=== PATIENT | male | born 1960 | race Caucasian/White ===

== ENCOUNTER 2018-03-14 13:29 | Emergency (ER) | payer BC ==
[~2018-03-14] VITALS: Ht 165.1 cm; Wt 67.0 kg
[~2018-03-14 13:29] MED LIST: AMLO5TAB4 PO; ASPI81TA52 PO; ATOR40TA71 PO; CLON0.2T PO; FERR325T39 PO; FISH12002 PO; FURO40TA4 PO; GLIP5TAB13 PO; LEVO100T PO; LISI-600 PO; MAGN296S50 PO; OMEP40CA PO; [UNRECOGNIZED DRUG - CODE] PO
[2018-03-14 14:30] VITALS: BP 147/78
[2018-03-14 14:53] LABS: BASOPHILS % (AUTO) 0.6 % (0-1); EOSINOPHILS # (AUTO) 0.2 X10'3 (0-0.9); EOSINOPHILS % (AUTO) 2.5 % (0-6); HEMATOCRIT 26.5 % (42.0-52.0); HEMOGLOBIN 8.7 g/dl (14.0-17.9); LYMPHOCYTES # (AUTO) 1.2 X10'3 (1.1-4.8); LYMPHOCYTES % (AUTO) 19.2 % (21-51); MEAN CORPUSCULAR HEMOGLOBIN 30.5 PG (27.0-31.0); MEAN CORPUSCULAR HGB CONC 32.8 % (33.0-36.5); MEAN CORPUSCULAR VOLUME 92.9 FL (78-98); MEAN PLATELET VOLUME 7.1 FL (7.4-10.4); MONOCYTES # (AUTO) 0.5 X10'3 (0-0.9); MONOCYTES % (AUTO) 8.2 % (2-12); NEUTROPHILS # (AUTO) 4.2 X10'3 (1.8-7.7); NEUTROPHILS % (AUTO) 69.5 % (42-75); PLATELET COUNT 241 X10'3 (140-440); RED BLOOD COUNT 2.86 X10'6 (4.70-6.10); RED CELL DISTRIBUTION WIDTH 14.4 % (11.5-14.5); WHITE BLOOD COUNT 6.1 X10'3 (4.5-11.0)
[2018-03-14 15:15] LABS: ALANINE AMINOTRANSFERASE 38 U/L (12-78); ALBUMIN 2.5 G/DL (3.4-5.0); ALBUMIN/GLOBULIN RATIO 0.7 (1.1-1.5); ALKALINE PHOSPHATASE 115 IU/L (46-116); ANION GAP 8 (8-16); ASPARTATE AMINO TRANSFERASE 27 U/L (10-37); BILIRUBIN,TOTAL 0.1 MG/DL (0.1-1.0); BLOOD UREA NITROGEN 89 MG/DL (7-18); BUN/CREATININE RATIO 30.8 (5.4-32.0); CHLORIDE 108 MMOL/L (99-107); CREATININE 2.89 MG/DL (0.60-1.10); GLUCOSE 132 MG/DL (70-104); POTASSIUM 5.7 MMOL/L (3.5-5.1); SODIUM 138 MMOL/L (135-145); TOTAL CARBON DIOXIDE 21.9 MMOL/L (24-32); TOTAL PROTEIN 6.1 G/DL (6.4-8.2); eGFR 23 ML/MIN
[2018-03-14] MEDS ORDERED: sodium polystyrene sulfonate 15gm/60ml oral suspension PO ONE (15:30)
== END 2018-03-14 15:47 | disposition home or self-care (01) ==
LOC: ER 13:29
DX: I13.0 Hypertensive heart and chronic kidney disease with heart failure and stage 1 through stage 4 chronic kidney disease, or unspecified chronic kidney disease (principal); E11.22 Type 2 diabetes mellitus with diabetic chronic kidney disease; N18.9 Chronic kidney disease, unspecified; I50.9 Heart failure, unspecified; E87.5 Hyperkalemia; E78.00 Pure hypercholesterolemia, unspecified; K21.9 Gastro-esophageal reflux disease without esophagitis; E03.9 Hypothyroidism, unspecified; G89.29 Other chronic pain; F12.10 Cannabis abuse, uncomplicated; F15.10 Other stimulant abuse, uncomplicated; Z90.49 Acquired absence of other specified parts of digestive tract; Z87.891 Personal history of nicotine dependence; Z79.82 Long term (current) use of aspirin; Z79.899 Other long term (current) drug therapy
CPT/HCPCS: 36415; 80053; 85025; 93005; 99285

== ENCOUNTER 2018-05-12 23:35 | Emergency (ER) | payer BC ==
[~2018-05-12] VITALS: Ht 167.6 cm; Wt 66.0 kg
[2018-05-13 02:31] LABS: INR 0.9 INR; PARTIAL THROMBOPLASTIN TIME 23 SECONDS (22-32); PROTHROMBIN TIME 9.3 SECONDS (9.0-12.0)
[2018-05-13 02:33] LABS: ALANINE AMINOTRANSFERASE 57 U/L (12-78); ALBUMIN 3.2 G/DL (3.4-5.0); ALBUMIN/GLOBULIN RATIO 0.8 (1.1-1.5); ALKALINE PHOSPHATASE 138 IU/L (46-116); ANION GAP 11 (8-16); ASPARTATE AMINO TRANSFERASE 30 U/L (10-37); BILIRUBIN,TOTAL 0.1 MG/DL (0.1-1.0); BLOOD UREA NITROGEN 96 MG/DL (7-18); BUN/CREATININE RATIO 28.2 (5.4-32.0); CALCIUM 8.4 MG/DL (8.5-10.1); CHLORIDE 106 MMOL/L (99-107); GLUCOSE 138 MG/DL (70-104); MAGNESIUM 2.9 MG/DL (1.5-2.4); POTASSIUM 5.6 MMOL/L (3.5-5.1); SODIUM 137 MMOL/L (135-145); eGFR 19 ML/MIN
[2018-05-13 02:35] LABS: BASOPHILS % (AUTO) 0.5 % (0-1); EOSINOPHILS # (AUTO) 0.2 X10'3 (0-0.9); EOSINOPHILS % (AUTO) 2.7 % (0-6); HEMATOCRIT 25.9 % (42.0-52.0); HEMOGLOBIN 8.7 g/dl (14.0-17.9); LYMPHOCYTES # (AUTO) 1.3 X10'3 (1.1-4.8); MEAN CORPUSCULAR HEMOGLOBIN 30.9 PG (27.0-31.0); MEAN CORPUSCULAR HGB CONC 33.7 % (33.0-36.5); MEAN CORPUSCULAR VOLUME 91.7 FL (78-98); MEAN PLATELET VOLUME 7.2 FL (7.4-10.4); MONOCYTES # (AUTO) 0.7 X10'3 (0-0.9); MONOCYTES % (AUTO) 8.9 % (2-12); NEUTROPHILS # (AUTO) 5.6 X10'3 (1.8-7.7); NEUTROPHILS % (AUTO) 71.9 % (42-75); PLATELET COUNT 228 X10'3 (140-440); RED BLOOD COUNT 2.83 X10'6 (4.70-6.10); RED CELL DISTRIBUTION WIDTH 13.3 % (11.5-14.5); WHITE BLOOD COUNT 7.8 X10'3 (4.5-11.0)
[2018-05-13] MEDS ORDERED: sodium polystyrene sulfonate 15gm/60ml oral suspension PO ONE (04:05)
[2018-05-13 05:51] VITALS: BP 188/90
[2018-05-13 06:03] LABS: ALBUMIN 3.2 G/DL (3.4-5.0); ANION GAP 14 (8-16); BLOOD UREA NITROGEN 92 MG/DL (7-18); BUN/CREATININE RATIO 29.4 (5.4-32.0); CALCIUM 8.4 MG/DL (8.5-10.1); CHLORIDE 106 MMOL/L (99-107); CREATININE 3.13 MG/DL (0.60-1.10); GLUCOSE 119 MG/DL (70-104); POTASSIUM 5.3 MMOL/L (3.5-5.1); SODIUM 138 MMOL/L (135-145); TOTAL CARBON DIOXIDE 18.5 MMOL/L (24-32); eGFR 21 ML/MIN
== END 2018-05-13 06:44 | disposition home or self-care (01) ==
LOC: ER 23:36
DX: E87.5 Hyperkalemia (principal); E11.42 Type 2 diabetes mellitus with diabetic polyneuropathy; I50.9 Heart failure, unspecified; E78.00 Pure hypercholesterolemia, unspecified; K21.9 Gastro-esophageal reflux disease without esophagitis; I13.0 Hypertensive heart and chronic kidney disease with heart failure and stage 1 through stage 4 chronic kidney disease, or unspecified chronic kidney disease; F12.90 Cannabis use, unspecified, uncomplicated; F15.90 Other stimulant use, unspecified, uncomplicated; E11.22 Type 2 diabetes mellitus with diabetic chronic kidney disease; N18.9 Chronic kidney disease, unspecified; E03.9 Hypothyroidism, unspecified; Z90.49 Acquired absence of other specified parts of digestive tract; Z79.82 Long term (current) use of aspirin; Z79.899 Other long term (current) drug therapy
CPT/HCPCS: 36415; 80048; 80053; 83735; 84100; 85025; 85610; 85730; 99284

== ENCOUNTER 2018-08-13 08:57 | Inpatient (IN) | payer BC ==
[~2018-08-13] VITALS: Ht 167.6 cm; Wt 69.9 kg
[2018-08-13] MEDS ORDERED: ondansetron/PF 4mg/2ml inj IV ONE ×2 (09:30→10:30)
[2018-08-13] MEDS ORDERED: normal saline 1000ML IV soln IVB ONE (09:30)
[2018-08-13 09:57] LABS: BASOPHILS % (AUTO) 0.2 % (0-1); EOSINOPHILS # (AUTO) 0.1 X10'3 (0-0.9); EOSINOPHILS % (AUTO) 0.5 % (0-6); HEMATOCRIT 26.8 % (42.0-52.0); HEMOGLOBIN 9.1 g/dl (14.0-17.9); LYMPHOCYTES # (AUTO) 1.5 X10'3 (1.1-4.8); MEAN CORPUSCULAR HEMOGLOBIN 30.7 PG (27.0-31.0); MEAN CORPUSCULAR HGB CONC 33.7 % (33.0-36.5); MEAN CORPUSCULAR VOLUME 91.1 FL (78-98); MEAN PLATELET VOLUME 7.3 FL (7.4-10.4); MONOCYTES # (AUTO) 0.5 X10'3 (0-0.9); MONOCYTES % (AUTO) 3.1 % (2-12); NEUTROPHILS # (AUTO) 14.2 X10'3 (1.8-7.7); NEUTROPHILS % (AUTO) 87.2 % (42-75); PLATELET COUNT 277 X10'3 (140-440); RED BLOOD COUNT 2.95 X10'6 (4.70-6.10); RED CELL DISTRIBUTION WIDTH 13.2 % (11.5-14.5); WHITE BLOOD COUNT 16.3 X10'3 (4.5-11.0)
[2018-08-13 10:13] LABS: ALANINE AMINOTRANSFERASE 36 U/L (12-78); ALBUMIN 3.7 G/DL (3.4-5.0); ALBUMIN/GLOBULIN RATIO 0.9 (1.1-1.5); ALKALINE PHOSPHATASE 83 IU/L (46-116); ANION GAP 22 (8-16); ASPARTATE AMINO TRANSFERASE 25 U/L (10-37); BILIRUBIN,TOTAL 0.3 MG/DL (0.1-1.0); BLOOD UREA NITROGEN 110 MG/DL (7-18); CHLORIDE 107 MMOL/L (99-107); CREATININE 4.78 MG/DL (0.60-1.10); GLUCOSE 266 MG/DL (70-104); LIPASE 404 U/L (73-393); POTASSIUM 4.9 MMOL/L (3.5-5.1); SODIUM 142 MMOL/L (135-145); TOTAL PROTEIN 7.7 G/DL (6.4-8.2); eGFR 13 ML/MIN
[2018-08-13 10:16] LABS: PROTHROMBIN TIME 9.9 SECONDS (9.0-12.0)
[2018-08-13 10:17] LABS: TOTAL CARBON DIOXIDE 13.4 MMOL/L (24-32)
[2018-08-13 11:24] LABS: CLARITY,URINE SLIGHTLY CLOUDY (Clear); COLOR,URINE YELLOW (Yellow); GLUCOSE, URINE 250 mg/dl (Neg); KETONES,URINE NEGATIVE (Neg); LEUKOCYTE ESTERASE ,URINE NEGATIVE (Neg); NITRITES, URINE NEGATIVE (Neg); OCCULT BLOOD,URINE MODERATE (Neg); PH,URINE 5.5 (4.8-8.0); PROTEIN,URINE 100 mg/dl (Neg); UROBILINOGEN,URINE 0.2 E.U/dL (0.2-1.0)
[2018-08-13 11:26] LABS: UA COLLECTION TYPE STRAIGHT CATH
[2018-08-13 11:53] LABS: RBC,URINE NONE SEEN /HPF (0-2); WBC,URINE 0-4 /HPF (0-4)
[2018-08-13 11:54] LABS: BACTERIA,URINE FEW /HPF (Neg); SQUAMOUS EPITHELIAL CELL,UR FEW /LPF (FEW)
[2018-08-13 11:55] LABS: AMORPHOUS URATES 2+
[2018-08-13] MEDS ORDERED: proCHLORperazine 10 MG/2 ml inj IV ONE (12:10)
[2018-08-13] MEDS ORDERED: potassium CL 20mEq in D5-1/2NS 1,000 ML IV PRN (14:17)
[2018-08-13] MEDS ORDERED: insulin regular, DKA only 100 UNIT in normal saline 100ml IV soln 99 ML IV SCH ×2 (14:17)
[2018-08-13] MEDS ORDERED: sodium bicarbonate (8.4%) inj. 50 MEQ in dextrose 5% water 500ml 250 ML IV PRN (14:17)
[2018-08-13] MEDS ORDERED: sodium bicarbonate (8.4%) inj. 100 MEQ in dextrose 5% water 500ml 500 ML IV PRN (14:17)
[2018-08-13] MEDS ORDERED: sodium phosphate inj. 30 MMOL in dextrose 5%-water 250 ML IV PRN (14:20)
[2018-08-13] MEDS: K and/or MAG REPLACEMENT MC SCH (14:20)
[2018-08-13] MEDS ORDERED: potassium Cl 20 mEq SR tablet PO PRN ×2 (14:20)
[2018-08-13] MEDS ORDERED: potassium Cl 40MEQ/NS 500ml 500 ML IV PRN (14:20)
[2018-08-13] MEDS ORDERED: mag hydrox/Alum hydrox/simeth 30ml oral suspension PO PRN (14:20)
[2018-08-13] MEDS ORDERED: magnesium hydroxide 30ml (MOM) UD suspension PO PRN (14:20)
[2018-08-13] MEDS ORDERED: Neutra Phos packet PO PRN (14:20)
[2018-08-13] MEDS ORDERED: insulin regular, human vial - multi-dose IV PRN (14:20)
[2018-08-13] MEDS ORDERED: sodium phosphate inj. 15 MMOL in dextrose 5%-water 150 ML IV PRN (14:20)
[2018-08-13] MEDS ORDERED: acetaminophen 325mg tablet PO PRN (14:20)
[2018-08-13] MEDS ORDERED: insulin regular, human 10 units/0.1 ml syringe IV PRN (15:04)
[2018-08-13 15:20] LABS: ALBUMIN 3.5 G/DL (3.4-5.0); ANION GAP 24 (8-16); BLOOD UREA NITROGEN 104 MG/DL (7-18); BUN/CREATININE RATIO 23.4 (5.4-32.0); CALCIUM 8.8 MG/DL (8.5-10.1); CHLORIDE 110 MMOL/L (99-107); CREATININE 4.44 MG/DL (0.60-1.10); GLUCOSE 299 MG/DL (70-104); PHOSPHORUS 7.3 MG/DL (2.3-4.5); POTASSIUM 4.7 MMOL/L (3.5-5.1); SODIUM 144 MMOL/L (135-145); eGFR 14 ML/MIN
[2018-08-13 15:30] LABS: TOTAL CARBON DIOXIDE 10.1 MMOL/L (24-32)
[2018-08-13] MEDS: pantoprazole 40 MG vial IV SCH (15:40)
[2018-08-13] MEDS: normal saline 1000ml 1,000 ML IV SCH ×3 (15:42→22:40)
[2018-08-13 16:00] VITALS: BP 149/48
[2018-08-13] MEDS: ondansetron/PF 4mg/2ml inj IV PRN (18:45)
[2018-08-13 19:00] VITALS: BP 161/67
[2018-08-13] MEDS: metoclopramide 5 mg/ml inj IV PRN (19:25)
[2018-08-13] MEDS ORDERED: temazepam 15mg capsule PO PRN (21:00)
[2018-08-13 22:27] LABS: ALBUMIN 3.4 G/DL (3.4-5.0); ANION GAP 24 (8-16); BLOOD UREA NITROGEN 99 MG/DL (7-18); BUN/CREATININE RATIO 22.3 (5.4-32.0); CALCIUM 8.6 MG/DL (8.5-10.1); CHLORIDE 112 MMOL/L (99-107); CREATININE 4.43 MG/DL (0.60-1.10); GLUCOSE 252 MG/DL (70-104); POTASSIUM 4.4 MMOL/L (3.5-5.1); SODIUM 147 MMOL/L (135-145); eGFR 14 ML/MIN
[2018-08-13 22:33] LABS: TOTAL CARBON DIOXIDE 11.1 MMOL/L (24-32)
[2018-08-13 23:00] VITALS: BP 158/67
[2018-08-14] MEDS ORDERED: proCHLORperazine 10 MG/2 ml inj IV PRN (00:15)
[2018-08-14] MEDS: ondansetron/PF 4mg/2ml inj IV PRN (02:05)
[2018-08-14 02:43] LABS: ALBUMIN 2.4 G/DL (3.4-5.0); ANION GAP 22 (8-16); BLOOD UREA NITROGEN 74 MG/DL (7-18); BUN/CREATININE RATIO 23.7 (5.4-32.0); CALCIUM 6.2 MG/DL (8.5-10.1); CHLORIDE 121 MMOL/L (99-107); CREATININE 3.12 MG/DL (0.60-1.10); GLUCOSE 121 MG/DL (70-104); SODIUM 153 MMOL/L (135-145); eGFR 21 ML/MIN
[2018-08-14 02:49] LABS: POTASSIUM 2.7 MMOL/L (3.5-5.1)
[2018-08-14 02:50] LABS: TOTAL CARBON DIOXIDE 10.5 MMOL/L (24-32)
[2018-08-14] MEDS: normal saline 1000ml 1,000 ML IV SCH ×4 (02:58→08:35)
[2018-08-14 03:00] VITALS: BP 117/61
[2018-08-14] MEDS: potassium Cl 40MEQ/NS 500ml 500 ML IV PRN ×2 (03:04→07:24)
[2018-08-14] MEDS: pantoprazole 40 MG vial IV SCH (03:26)
[2018-08-14 06:02] LABS: ALBUMIN 3.4 G/DL (3.4-5.0); ANION GAP 23 (8-16); BLOOD UREA NITROGEN 92 MG/DL (7-18); BUN/CREATININE RATIO 22.8 (5.4-32.0); CALCIUM 8.6 MG/DL (8.5-10.1); CHLORIDE 117 MMOL/L (99-107); CREATININE 4.04 MG/DL (0.60-1.10); GLUCOSE 117 MG/DL (70-104); PHOSPHORUS 4.7 MG/DL (2.3-4.5); POTASSIUM 4.3 MMOL/L (3.5-5.1); SODIUM 151 MMOL/L (135-145); eGFR 15 ML/MIN
[2018-08-14 06:41] LABS: BASOPHILS % (AUTO) 0 % (0-1); EOSINOPHILS % (AUTO) 0 % (0-6); HEMATOCRIT 24.3 % (42.0-52.0); HEMOGLOBIN 8.2 g/dl (14.0-17.9); LYMPHOCYTES # (AUTO) 0.9 X10'3 (1.1-4.8); LYMPHOCYTES % (AUTO) 3.6 % (21-51); MEAN CORPUSCULAR HEMOGLOBIN 30.6 PG (27.0-31.0); MEAN CORPUSCULAR HGB CONC 33.7 % (33.0-36.5); MEAN CORPUSCULAR VOLUME 90.7 FL (78-98); MEAN PLATELET VOLUME 7.5 FL (7.4-10.4); MONOCYTES # (AUTO) 1.2 X10'3 (0-0.9); MONOCYTES % (AUTO) 4.7 % (2-12); NEUTROPHILS # (AUTO) 23.2 X10'3 (1.8-7.7); NEUTROPHILS % (AUTO) 91.7 % (42-75); PLATELET COUNT 250 X10'3 (140-440); RED BLOOD COUNT 2.68 X10'6 (4.70-6.10); RED CELL DISTRIBUTION WIDTH 12.9 % (11.5-14.5)
[2018-08-14 07:01] LABS: WHITE BLOOD COUNT 25.3 X10'3 (4.5-11.0)
[2018-08-14 07:06] VITALS: BP 145/53
[2018-08-14] MEDS: proCHLORperazine 10 MG/2 ml inj IV PRN ×4 (07:13→22:50)
[2018-08-14 07:37] LABS: PLATELET ESTIMATE NORMAL; TOTAL CELLS COUNTED 100
[2018-08-14] MEDS: K and/or MAG REPLACEMENT MC SCH (08:00)
[2018-08-14] MEDS ORDERED: sodium bicarbonate (8.4%) inj. 100 MEQ in dextrose 5% water 500ml 500 ML IV PRN (08:05)
[2018-08-14] MEDS ORDERED: insulin regular, DKA only 100 UNIT in normal saline 100ml IV soln 99 ML IV SCH ×2 (08:05)
[2018-08-14] MEDS ORDERED: normal saline 1000ml 1,000 ML IV SCH (08:05)
[2018-08-14] MEDS ORDERED: potassium Cl 20 mEq SR tablet PO PRN ×2 (08:05)
[2018-08-14] MEDS ORDERED: sodium bicarbonate (8.4%) inj. 50 MEQ in dextrose 5% water 500ml 250 ML IV PRN (08:05)
[2018-08-14] MEDS ORDERED: sodium phosphate inj. 15 MMOL in dextrose 5%-water 150 ML IV PRN (08:05)
[2018-08-14] MEDS ORDERED: Neutra Phos packet PO PRN (08:05)
[2018-08-14] MEDS ORDERED: potassium Cl 40MEQ/NS 500ml 500 ML IV PRN ×2 (08:05)
[2018-08-14] MEDS ORDERED: potassium CL 20mEq in D5-1/2NS 1,000 ML IV PRN (08:05)
[2018-08-14] MEDS ORDERED: sodium phosphate inj. 30 MMOL in dextrose 5%-water 250 ML IV PRN (08:05)
[2018-08-14] MEDS ORDERED: insulin regular, human vial - multi-dose IV PRN (08:05)
[2018-08-14] MEDS ORDERED: dextrose ORAL solution 15 GM/59 ML bottle PO PRN ×2 (10:40)
[2018-08-14] MEDS ORDERED: glucagon, human recombinant 1mg kit SUBCUT PRN (10:40)
[2018-08-14] MEDS ORDERED: MESSAGE TO PHARMACY PO ONE (10:40)
[2018-08-14] MEDS ORDERED: dextrose 50%-water 50ml dispensing syringe IV PRN ×2 (10:40)
[2018-08-14 11:00] VITALS: BP 173/74
[2018-08-14] MEDS ORDERED: vancomycin/NS 1 GM ADD-VANTAGE 250 ML X 1 DOSE IV ONE (11:00)
[2018-08-14] MEDS ORDERED: heparin 1,000unit/ml 10ml vial 10 ML IV ONE (12:07)
[2018-08-14] MEDS ORDERED: normal saline 1000ml 250 ML IV PRN (12:07)
[2018-08-14] MEDS ORDERED: epoetin 20,000 units/ml inj IV ONE (12:10)
[2018-08-14] MEDS ORDERED: heparin 1,000 units/ml 10ml inj HE ONE ×2 (12:15)
[2018-08-14] MEDS: sodium bicarbonate (8.4%) inj. 150 MEQ in sodium chloride 0.45% 1,000 ML IV SCH (12:18)
[2018-08-14 12:28] LABS: ALBUMIN 3.1 G/DL (3.4-5.0); ANION GAP 19 (8-16); BLOOD UREA NITROGEN 85 MG/DL (7-18); BUN/CREATININE RATIO 20.6 (5.4-32.0); CALCIUM 8.6 MG/DL (8.5-10.1); CHLORIDE 123 MMOL/L (99-107); CREATININE 4.13 MG/DL (0.60-1.10); GLUCOSE 204 MG/DL (70-104); PHOSPHORUS 4.7 MG/DL (2.3-4.5); POTASSIUM 5.3 MMOL/L (3.5-5.1); SODIUM 153 MMOL/L (135-145); eGFR 15 ML/MIN
[2018-08-14] MEDS ORDERED: piperacillin/tazo 3.375gm/50ml 50 ML IV SCH (14:00)
[2018-08-14] MEDS ORDERED: metoclopramide 5 mg/ml inj ONE (14:53)
[2018-08-14] MEDS ORDERED: fentaNYL/PF 50MCG/1 ML 2ML syringe ONE (15:04)
[2018-08-14] MEDS ORDERED: LIDOcaine 1%/PF 5ML 10 MG/ML VIAL SQ ONE (15:05)
[2018-08-14] MEDS ORDERED: fentaNYL/PF 50MCG/1 ML 2ML syringe IV PRN (15:05)
[2018-08-14] MEDS ORDERED: heparin 1,000 units/ml 10ml inj ICATH ONE (15:05)
[2018-08-14] MEDS ORDERED: heparin 1,000unit/ml 10ml vial 10 ML ONE (15:09)
[2018-08-14 16:10] VITALS: BP 167/67
[2018-08-14] MEDS: insulin Lispro (HumaLOG) vial - multi-dose SQ SCH (17:55)
[2018-08-14 19:00] VITALS: BP 170/106
[2018-08-14] MEDS: piperacillin/tazobactam inj. 2.25 GM in normal saline 50ml IV IV SCH (20:09)
[2018-08-14] MEDS: insulin glargine (Lantus) pen - multi-dose SQ SCH (21:20)
[2018-08-14 23:00] VITALS: BP 157/49
[2018-08-15] MEDS: sodium bicarbonate (8.4%) inj. 150 MEQ in sodium chloride 0.45% 1,000 ML IV SCH ×3 (00:46→21:10)
[2018-08-15] MEDS: piperacillin/tazobactam inj. 2.25 GM in normal saline 50ml IV IV SCH ×4 (01:31→20:51)
[2018-08-15 03:00] VITALS: BP 144/87
[2018-08-15] MEDS: VANCOMYCIN LEVEL IV SCH (03:00)
[2018-08-15] MEDS: proCHLORperazine 10 MG/2 ml inj IV PRN ×3 (05:42→21:02)
[2018-08-15 06:00] VITALS: BP 203/84
[2018-08-15] MEDS ORDERED: vancomycin/NS 1 GM ADD-VANTAGE 250 ML IV PRN (06:00)
[2018-08-15 06:11] LABS: BASOPHILS % (AUTO) 0.1 % (0-1); EOSINOPHILS % (AUTO) 0.1 % (0-6); HEMATOCRIT 25.8 % (42.0-52.0); HEMOGLOBIN 8.8 g/dl (14.0-17.9); LYMPHOCYTES % (AUTO) 4.6 % (21-51); MEAN CORPUSCULAR HEMOGLOBIN 30.8 PG (27.0-31.0); MEAN CORPUSCULAR HGB CONC 34.2 % (33.0-36.5); MEAN PLATELET VOLUME 7.4 FL (7.4-10.4); MONOCYTES % (AUTO) 4.9 % (2-12); NEUTROPHILS # (AUTO) 19.1 X10'3 (1.8-7.7); NEUTROPHILS % (AUTO) 90.3 % (42-75); PLATELET COUNT 229 X10'3 (140-440); RED BLOOD COUNT 2.87 X10'6 (4.70-6.10); RED CELL DISTRIBUTION WIDTH 12.9 % (11.5-14.5); WHITE BLOOD COUNT 21.1 X10'3 (4.5-11.0)
[2018-08-15 07:14] LABS: ALANINE AMINOTRANSFERASE 43 U/L (12-78); ALBUMIN/GLOBULIN RATIO 0.8 (1.1-1.5); ALKALINE PHOSPHATASE 74 IU/L (46-116); ANION GAP 14 (8-16); ASPARTATE AMINO TRANSFERASE 47 U/L (10-37); BILIRUBIN,TOTAL 0.6 MG/DL (0.1-1.0); BLOOD UREA NITROGEN 45 MG/DL (7-18); BUN/CREATININE RATIO 14.2 (5.4-32.0); CALCIUM 8.8 MG/DL (8.5-10.1); CHLORIDE 112 MMOL/L (99-107); CREATININE 3.17 MG/DL (0.60-1.10); GLUCOSE 128 MG/DL (70-104); MAGNESIUM 1.8 MG/DL (1.5-2.4); PHOSPHORUS 3.7 MG/DL (2.3-4.5); POTASSIUM 3.7 MMOL/L (3.5-5.1); SODIUM 153 MMOL/L (135-145); TOTAL CARBON DIOXIDE 26.9 MMOL/L (24-32); TOTAL PROTEIN 6.8 G/DL (6.4-8.2); VANCOMYCIN,RANDOM 13.2 UG/ML; eGFR 20 ML/MIN
[2018-08-15] MEDS: pantoprazole 40 MG vial IV SCH (07:31)
[2018-08-15] MEDS: aspirin 81mg tablet.DR PO SCH (07:32)
[2018-08-15] MEDS: levoTHYROXINE 100mcg tablet PO SCH (07:32)
[2018-08-15] MEDS: furosemide 40mg tablet PO SCH (07:32)
[2018-08-15] MEDS: metoclopramide 5 mg/ml inj IV PRN (07:36)
[2018-08-15] MEDS ORDERED: [UNRECOGNIZED DRUG - OTHER] PO SCH (08:00)
[2018-08-15] MEDS ORDERED: non-formulary drug (Atorvastatin Calcium 1 TABLET) PO SCH (08:00)
[2018-08-15] MEDS ORDERED: BORAGE PO SCH (08:00)
[2018-08-15] MEDS ORDERED: FLAX PO SCH (08:00)
[2018-08-15] MEDS ORDERED: normal saline 1000ml 250 ML IV PRN (08:00)
[2018-08-15] MEDS ORDERED: heparin 1,000 units/ml 10ml inj HE ONE ×2 (08:00)
[2018-08-15] MEDS ORDERED: CLONIDINE HCL PO SCH (08:00)
[2018-08-15] MEDS ORDERED: heparin 1,000unit/ml 10ml vial 10 ML IV ONE (08:00)
[2018-08-15] MEDS ORDERED: cloNIDine 0.1 mg tablet PO SCH (08:00)
[2018-08-15] MEDS ORDERED: K and/or MAG REPLACEMENT MC SCH (08:00)
[2018-08-15] MEDS ORDERED: amLODIPine 5mg tablet PO SCH ×2 (08:00)
[2018-08-15] MEDS ORDERED: epoetin 20,000 units/ml inj IV ONE (08:00)
[2018-08-15] MEDS: K and/or MAG REPLACEMENT MC SCH (08:00)
[2018-08-15] MEDS ORDERED: FISH OIL PO SCH (08:00)
[2018-08-15] MEDS: MESSAGE TO NURSING PO NR (10:00)
[2018-08-15 11:00] VITALS: BP 152/82
[2018-08-15] MEDS ORDERED: vancomycin/NS 1 GM ADD-VANTAGE 250 ML IV ONE (11:20)
[2018-08-15] MEDS ORDERED: metoprolol tartrate 1mg/ml inj IV PRN ×2 (13:05→13:20)
[2018-08-15] MEDS ORDERED: metoprolol tartrate 1mg/ml inj IV ONE (13:05)
[2018-08-15] MEDS: metoprolol tartrate 1mg/ml inj IV PRN ×3 (13:56→14:20)
[2018-08-15] MEDS ORDERED: metoprolol tartrate 25mg tablet PO PRN (14:45)
[2018-08-15] MEDS ORDERED: heparin 10,000 units/1 ML INJ IV PRN (14:45)
[2018-08-15] MEDS ORDERED: heparin 10,000 units/1 ML INJ IV ONE (14:45)
[2018-08-15 15:00] VITALS: BP 94/51
[2018-08-15] MEDS ORDERED: metoprolol tartrate 12.5mg (1/2 tablet) PO PRN (15:19)
[2018-08-15] MEDS ORDERED: metoprolol tartrate 12.5mg (1/2 tablet) PO ONE (15:25)
[2018-08-15 15:33] LABS: BASOPHILS % (AUTO) 0 % (0-1); EOSINOPHILS # (AUTO) 0.2 X10'3 (0-0.9); EOSINOPHILS % (AUTO) 1.1 % (0-6); HEMATOCRIT 24.9 % (42.0-52.0); HEMOGLOBIN 8.2 g/dl (14.0-17.9); LYMPHOCYTES # (AUTO) 1.2 X10'3 (1.1-4.8); LYMPHOCYTES % (AUTO) 6.9 % (21-51); MEAN CORPUSCULAR HEMOGLOBIN 29.7 PG (27.0-31.0); MEAN CORPUSCULAR HGB CONC 32.8 % (33.0-36.5); MEAN CORPUSCULAR VOLUME 90.6 FL (78-98); MEAN PLATELET VOLUME 6.5 FL (7.4-10.4); PLATELET COUNT 231 X10'3 (140-440); RED BLOOD COUNT 2.75 X10'6 (4.70-6.10); RED CELL DISTRIBUTION WIDTH 13.9 % (11.5-14.5); WHITE BLOOD COUNT 17.4 X10'3 (4.5-11.0)
[2018-08-15 16:03] LABS: PARTIAL THROMBOPLASTIN TIME 30 SECONDS (22-32); PROTHROMBIN TIME 10.4 SECONDS (9.0-12.0)
[2018-08-15 19:00] VITALS: BP 174/77
[2018-08-15] MEDS ORDERED: metoprolol tartrate 12.5mg (1/2 tablet) PO SCH (20:00)
[2018-08-15] MEDS: heparin, porcine 5000 units/ml vial SQ SCH (20:50)
[2018-08-15] MEDS: insulin glargine (Lantus) pen - multi-dose SQ SCH (21:11)
[2018-08-15 23:00] VITALS: BP 166/73
[2018-08-16] VITALS (9 sets, daily range): BP systolic 143–206; BP diastolic 62–89
[2018-08-16] MEDS: piperacillin/tazobactam inj. 2.25 GM in normal saline 50ml IV IV SCH ×4 (02:02→21:10)
[2018-08-16] MEDS: proCHLORperazine 10 MG/2 ml inj IV PRN ×2 (02:02→18:56)
[2018-08-16] MEDS: VANCOMYCIN LEVEL IV SCH (03:00)
[2018-08-16] MEDS: hydrALAZINE 20mg/ml inj. IV PRN ×3 (03:35→17:37)
[2018-08-16 04:49] LABS: BASOPHILS % (AUTO) 0 % (0-1); EOSINOPHILS # (AUTO) 0.2 X10'3 (0-0.9); EOSINOPHILS % (AUTO) 1.5 % (0-6); HEMATOCRIT 24.9 % (42.0-52.0); HEMOGLOBIN 8.2 g/dl (14.0-17.9); LYMPHOCYTES # (AUTO) 1.1 X10'3 (1.1-4.8); LYMPHOCYTES % (AUTO) 7.7 % (21-51); MEAN CORPUSCULAR HEMOGLOBIN 29.7 PG (27.0-31.0); MONOCYTES # (AUTO) 1.1 X10'3 (0-0.9); MONOCYTES % (AUTO) 7.4 % (2-12); NEUTROPHILS # (AUTO) 12.4 X10'3 (1.8-7.7); NEUTROPHILS % (AUTO) 83.4 % (42-75); PLATELET COUNT 227 X10'3 (140-440); RED BLOOD COUNT 2.77 X10'6 (4.70-6.10); RED CELL DISTRIBUTION WIDTH 13.7 % (11.5-14.5); WHITE BLOOD COUNT 14.9 X10'3 (4.5-11.0)
[2018-08-16 05:21] LABS: ALANINE AMINOTRANSFERASE 42 U/L (12-78); ALBUMIN 2.8 G/DL (3.4-5.0); ALBUMIN/GLOBULIN RATIO 0.8 (1.1-1.5); ALKALINE PHOSPHATASE 68 IU/L (46-116); ANION GAP 12 (8-16); ASPARTATE AMINO TRANSFERASE 48 U/L (10-37); BILIRUBIN,TOTAL 0.8 MG/DL (0.1-1.0); BLOOD UREA NITROGEN 35 MG/DL (7-18); BUN/CREATININE RATIO 11.6 (5.4-32.0); CALCIUM 8.1 MG/DL (8.5-10.1); CHLORIDE 104 MMOL/L (99-107); CREATININE 3.03 MG/DL (0.60-1.10); GLUCOSE 143 MG/DL (70-104); MAGNESIUM 1.6 MG/DL (1.5-2.4); POTASSIUM 3.2 MMOL/L (3.5-5.1); SODIUM 147 MMOL/L (135-145); TOTAL CARBON DIOXIDE 31.4 MMOL/L (24-32); TOTAL PROTEIN 6.3 G/DL (6.4-8.2); VANCOMYCIN,RANDOM 21.3 UG/ML; eGFR 22 ML/MIN
[2018-08-16] MEDS: sodium bicarbonate (8.4%) inj. 150 MEQ in sodium chloride 0.45% 1,000 ML IV SCH (05:23)
[2018-08-16] MEDS: pantoprazole 40mg Tablet.DR PO SCH (07:50)
[2018-08-16] MEDS: aspirin 81mg tablet.DR PO SCH (07:51)
[2018-08-16] MEDS: levoTHYROXINE 100mcg tablet PO SCH (07:52)
[2018-08-16] MEDS: furosemide 40mg tablet PO SCH (07:52)
[2018-08-16] MEDS: heparin, porcine 5000 units/ml vial SQ SCH ×2 (07:53→21:10)
[2018-08-16] MEDS: K and/or MAG REPLACEMENT MC SCH (08:00)
[2018-08-16] MEDS ORDERED: cloNIDine 0.1 mg tablet PO SCH ×2 (08:00→21:34)
[2018-08-16] MEDS ORDERED: LIDOcaine 1% 30ml vial 5 ML in potassium Cl 40MEQ/NS 500ml 500 ML IV ONE (09:30)
[2018-08-16] MEDS: MESSAGE TO NURSING PO NR (10:00)
[2018-08-16] MEDS: insulin Lispro (HumaLOG) vial - multi-dose SQ SCH ×2 (12:58→19:00)
[2018-08-16] MEDS: lactobacillus rhamnosus 10,000 MMU CELLS/CAPSULE PO SCH (21:10)
[2018-08-16] MEDS: insulin glargine (Lantus) pen - multi-dose SQ SCH (21:13)
[2018-08-17] VITALS (9 sets, daily range): BP systolic 94–204; BP diastolic 38–115
[2018-08-17] MEDS: piperacillin/tazobactam inj. 2.25 GM in normal saline 50ml IV IV SCH ×3 (02:43→15:13)
[2018-08-17] MEDS: hydrALAZINE 20mg/ml inj. IV PRN ×2 (02:44→17:58)
[2018-08-17] MEDS: VANCOMYCIN LEVEL IV SCH (03:00)
[2018-08-17] MEDS: proCHLORperazine 10 MG/2 ml inj IV PRN ×3 (03:54→15:25)
[2018-08-17 05:13] LABS: BASOPHILS % (AUTO) 0.2 % (0-1); EOSINOPHILS % (AUTO) 0.2 % (0-6); HEMATOCRIT 25.5 % (42.0-52.0); HEMOGLOBIN 8.3 g/dl (14.0-17.9); LYMPHOCYTES # (AUTO) 0.8 X10'3 (1.1-4.8); LYMPHOCYTES % (AUTO) 8.1 % (21-51); MEAN CORPUSCULAR HEMOGLOBIN 29.7 PG (27.0-31.0); MEAN CORPUSCULAR HGB CONC 32.5 % (33.0-36.5); MEAN CORPUSCULAR VOLUME 91.4 FL (78-98); MONOCYTES % (AUTO) 10.5 % (2-12); NEUTROPHILS # (AUTO) 7.7 X10'3 (1.8-7.7); PLATELET COUNT 198 X10'3 (140-440); RED BLOOD COUNT 2.79 X10'6 (4.70-6.10); RED CELL DISTRIBUTION WIDTH 13.6 % (11.5-14.5); WHITE BLOOD COUNT 9.5 X10'3 (4.5-11.0)
[2018-08-17 05:35] LABS: ALANINE AMINOTRANSFERASE 45 U/L (12-78); ALBUMIN 2.6 G/DL (3.4-5.0); ALBUMIN/GLOBULIN RATIO 0.8 (1.1-1.5); ALKALINE PHOSPHATASE 63 IU/L (46-116); ANION GAP 11 (8-16); ASPARTATE AMINO TRANSFERASE 39 U/L (10-37); BILIRUBIN,TOTAL 0.6 MG/DL (0.1-1.0); BLOOD UREA NITROGEN 35 MG/DL (7-18); BUN/CREATININE RATIO 10.5 (5.4-32.0); CALCIUM 8.1 MG/DL (8.5-10.1); CHLORIDE 104 MMOL/L (99-107); CREATININE 3.33 MG/DL (0.60-1.10); GLUCOSE 145 MG/DL (70-104); MAGNESIUM 1.4 MG/DL (1.5-2.4); POTASSIUM 3.1 MMOL/L (3.5-5.1); SODIUM 147 MMOL/L (135-145); TOTAL CARBON DIOXIDE 31.9 MMOL/L (24-32); TOTAL PROTEIN 5.8 G/DL (6.4-8.2); eGFR 19 ML/MIN
[2018-08-17] MEDS ORDERED: normal saline 1000ml 250 ML IV PRN (06:21)
[2018-08-17] MEDS ORDERED: heparin 1,000unit/ml 10ml vial 10 ML IV ONE (06:21)
[2018-08-17] MEDS ORDERED: epoetin 20,000 units/ml inj IV ONE (06:25)
[2018-08-17] MEDS ORDERED: heparin 1,000 units/ml 10ml inj HE ONE ×2 (06:25)
[2018-08-17] MEDS: cloNIDine 0.1 mg tablet PO SCH ×3 (07:00→21:00)
[2018-08-17] MEDS: K and/or MAG REPLACEMENT MC SCH (08:00)
[2018-08-17] MEDS: aspirin 81mg tablet.DR PO SCH (08:01)
[2018-08-17] MEDS: lactobacillus rhamnosus 10,000 MMU CELLS/CAPSULE PO SCH ×2 (08:01→20:17)
[2018-08-17] MEDS: furosemide 40mg tablet PO SCH (08:01)
[2018-08-17] MEDS: pantoprazole 40mg Tablet.DR PO SCH (08:02)
[2018-08-17] MEDS: heparin, porcine 5000 units/ml vial SQ SCH ×2 (08:02→20:18)
[2018-08-17] MEDS: levoTHYROXINE 100mcg tablet PO SCH (08:02)
[2018-08-17] MEDS: insulin Lispro (HumaLOG) vial - multi-dose SQ SCH ×2 (08:19→20:15)
[2018-08-17 08:50] LABS: HBSAG SCREEN Negative (Negative)
[2018-08-17] MEDS ORDERED: vancomycin/NS 1 GM ADD-VANTAGE 250 ML IV ONE (09:00)
[2018-08-17] MEDS: MESSAGE TO NURSING PO NR (10:00)
[2018-08-17] MEDS ORDERED: magnesium 4gm in 100ml NS 100 ML IV PRN (10:05)
[2018-08-17] MEDS ORDERED: potassium Cl 20 mEq SR tablet PO PRN ×2 (10:05)
[2018-08-17] MEDS ORDERED: potassium Cl 40MEQ/NS 500ml 500 ML IV PRN ×2 (10:05)
[2018-08-17] MEDS ORDERED: magnesium Cl slow-release 64mg tablet PO PRN (10:05)
[2018-08-17] MEDS ORDERED: diltiazem 5mg/ml 5ml inj. IV ONE ×2 (19:45→23:35)
[2018-08-17] MEDS ORDERED: cloNIDine 0.1 mg tablet PO SCH (21:34)
[2018-08-18] VITALS (8 sets, daily range): BP systolic 83–175; BP diastolic 43–84
[2018-08-18] MEDS: piperacillin/tazobactam inj. 2.25 GM in normal saline 50ml IV IV SCH ×5 (00:04→19:40)
[2018-08-18] MEDS: insulin glargine (Lantus) pen - multi-dose SQ SCH ×2 (00:11→21:00)
[2018-08-18] MEDS ORDERED: potassium Cl 40MEQ/NS 500ml 500 ML IV PRN ×2 (02:20)
[2018-08-18] MEDS ORDERED: potassium Cl 20 mEq SR tablet PO PRN ×2 (02:20)
[2018-08-18] MEDS ORDERED: magnesium 4gm in 100ml NS 100 ML IV PRN (02:20)
[2018-08-18] MEDS ORDERED: magnesium Cl slow-release 64mg tablet PO PRN (02:20)
[2018-08-18] MEDS: VANCOMYCIN LEVEL IV SCH (03:00)
[2018-08-18] MEDS: proCHLORperazine 10 MG/2 ml inj IV PRN ×2 (03:20→10:02)
[2018-08-18 05:31] LABS: BASOPHILS % (AUTO) 0.1 % (0-1); EOSINOPHILS % (AUTO) 0.4 % (0-6); HEMATOCRIT 23.8 % (42.0-52.0); HEMOGLOBIN 7.8 g/dl (14.0-17.9); LYMPHOCYTES % (AUTO) 10.7 % (21-51); MEAN CORPUSCULAR HEMOGLOBIN 30.2 PG (27.0-31.0); MEAN CORPUSCULAR HGB CONC 32.9 % (33.0-36.5); MEAN CORPUSCULAR VOLUME 91.8 FL (78-98); MEAN PLATELET VOLUME 7.4 FL (7.4-10.4); MONOCYTES # (AUTO) 1.1 X10'3 (0-0.9); MONOCYTES % (AUTO) 12.4 % (2-12); NEUTROPHILS # (AUTO) 6.9 X10'3 (1.8-7.7); NEUTROPHILS % (AUTO) 76.4 % (42-75); PLATELET COUNT 188 X10'3 (140-440); RED CELL DISTRIBUTION WIDTH 13.7 % (11.5-14.5); WHITE BLOOD COUNT 9.1 X10'3 (4.5-11.0)
[2018-08-18 06:00] LABS: ALANINE AMINOTRANSFERASE 49 U/L (12-78); ALBUMIN 2.4 G/DL (3.4-5.0); ALBUMIN/GLOBULIN RATIO 0.8 (1.1-1.5); ALKALINE PHOSPHATASE 56 IU/L (46-116); ANION GAP 10 (8-16); ASPARTATE AMINO TRANSFERASE 36 U/L (10-37); BILIRUBIN,TOTAL 0.4 MG/DL (0.1-1.0); BLOOD UREA NITROGEN 16 MG/DL (7-18); BUN/CREATININE RATIO 5.9 (5.4-32.0); CALCIUM 7.6 MG/DL (8.5-10.1); CHLORIDE 103 MMOL/L (99-107); GLUCOSE 112 MG/DL (70-104); MAGNESIUM 1.5 MG/DL (1.5-2.4); POTASSIUM 3.4 MMOL/L (3.5-5.1); SODIUM 142 MMOL/L (135-145); TOTAL PROTEIN 5.5 G/DL (6.4-8.2); VANCOMYCIN,RANDOM 20.9 UG/ML; eGFR 25 ML/MIN
[2018-08-18 06:46] LABS: NUCLEATED RED BLOOD CELLS 5 /100WBC (0-0); TOTAL CELLS COUNTED 100
[2018-08-18 06:47] LABS: PLATELET ESTIMATE NORMAL; POLYCHROMASIA 2+
[2018-08-18] MEDS: levoTHYROXINE 100mcg tablet PO SCH (07:50)
[2018-08-18] MEDS: pantoprazole 40mg Tablet.DR PO SCH (07:50)
[2018-08-18] MEDS: aspirin 81mg tablet.DR PO SCH (07:50)
[2018-08-18] MEDS: cloNIDine 0.1 mg tablet PO SCH ×3 (07:50→21:28)
[2018-08-18] MEDS: lactobacillus rhamnosus 10,000 MMU CELLS/CAPSULE PO SCH ×2 (07:50→19:41)
[2018-08-18] MEDS: hydrALAZINE 20mg/ml inj. IV PRN (07:51)
[2018-08-18] MEDS: furosemide 40mg tablet PO SCH (07:51)
[2018-08-18] MEDS: heparin, porcine 5000 units/ml vial SQ SCH ×2 (07:51→19:41)
[2018-08-18] MEDS: K and/or MAG REPLACEMENT MC SCH (08:00)
[2018-08-18] MEDS: insulin Lispro (HumaLOG) vial - multi-dose SQ SCH ×3 (09:59→19:45)
[2018-08-18] MEDS: MESSAGE TO NURSING PO NR (10:00)
[2018-08-19] MEDS: piperacillin/tazobactam inj. 2.25 GM in normal saline 50ml IV IV SCH ×2 (02:57→08:20)
[2018-08-19] MEDS: hydrALAZINE 20mg/ml inj. IV PRN (02:57)
[2018-08-19 03:00] VITALS: BP 194/81
[2018-08-19] MEDS: VANCOMYCIN LEVEL IV SCH (03:00)
[2018-08-19 05:26] LABS: BASOPHILS % (AUTO) 0.2 % (0-1); EOSINOPHILS # (AUTO) 0.2 X10'3 (0-0.9); EOSINOPHILS % (AUTO) 2.6 % (0-6); HEMATOCRIT 23.3 % (42.0-52.0); HEMOGLOBIN 7.7 g/dl (14.0-17.9); LYMPHOCYTES # (AUTO) 1.2 X10'3 (1.1-4.8); LYMPHOCYTES % (AUTO) 13.8 % (21-51); MEAN CORPUSCULAR HEMOGLOBIN 30.4 PG (27.0-31.0); MEAN CORPUSCULAR VOLUME 92.3 FL (78-98); MEAN PLATELET VOLUME 7.5 FL (7.4-10.4); MONOCYTES % (AUTO) 11.5 % (2-12); NEUTROPHILS # (AUTO) 6.1 X10'3 (1.8-7.7); NEUTROPHILS % (AUTO) 71.9 % (42-75); PLATELET COUNT 190 X10'3 (140-440); RED BLOOD COUNT 2.53 X10'6 (4.70-6.10); RED CELL DISTRIBUTION WIDTH 13.4 % (11.5-14.5); WHITE BLOOD COUNT 8.5 X10'3 (4.5-11.0)
[2018-08-19 05:52] LABS: ALANINE AMINOTRANSFERASE 41 U/L (12-78); ALBUMIN 2.4 G/DL (3.4-5.0); ALBUMIN/GLOBULIN RATIO 0.8 (1.1-1.5); ALKALINE PHOSPHATASE 52 IU/L (46-116); ANION GAP 8 (8-16); ASPARTATE AMINO TRANSFERASE 29 U/L (10-37); BILIRUBIN,TOTAL 0.5 MG/DL (0.1-1.0); BLOOD UREA NITROGEN 18 MG/DL (7-18); BUN/CREATININE RATIO 5.9 (5.4-32.0); CALCIUM 7.8 MG/DL (8.5-10.1); CHLORIDE 102 MMOL/L (99-107); CREATININE 3.05 MG/DL (0.60-1.10); GLUCOSE 126 MG/DL (70-104); MAGNESIUM 2.1 MG/DL (1.5-2.4); POTASSIUM 3.4 MMOL/L (3.5-5.1); SODIUM 138 MMOL/L (135-145); TOTAL CARBON DIOXIDE 28.4 MMOL/L (24-32); TOTAL PROTEIN 5.3 G/DL (6.4-8.2); eGFR 21 ML/MIN
[2018-08-19 06:00] VITALS: BP 166/76
[2018-08-19 06:58] LABS: HYPOCHROMASIA 1+; PLATELET ESTIMATE NORMAL; POLYCHROMASIA 1+
[2018-08-19] MEDS: K and/or MAG REPLACEMENT MC SCH (08:00)
[2018-08-19] MEDS: levoTHYROXINE 100mcg tablet PO SCH (08:20)
[2018-08-19] MEDS: cloNIDine 0.1 mg tablet PO SCH ×2 (08:20→12:50)
[2018-08-19] MEDS: aspirin 81mg tablet.DR PO SCH (08:20)
[2018-08-19] MEDS: pantoprazole 40mg Tablet.DR PO SCH (08:20)
[2018-08-19] MEDS: lactobacillus rhamnosus 10,000 MMU CELLS/CAPSULE PO SCH (08:21)
[2018-08-19] MEDS: furosemide 40mg tablet PO SCH (08:21)
[2018-08-19] MEDS: heparin, porcine 5000 units/ml vial SQ SCH (08:24)
[2018-08-19] MEDS ORDERED: heparin 1,000unit/ml 10ml vial 10 ML IV ONE (08:29)
[2018-08-19] MEDS ORDERED: epoetin 20,000 units/ml inj IV ONE (08:30)
[2018-08-19] MEDS ORDERED: albumin (Human) 5% 250ml 250 ML IV PRN (08:30)
[2018-08-19] MEDS ORDERED: heparin 1,000 units/ml 10ml inj IV ONE (08:30)
[2018-08-19] MEDS ORDERED: heparin 1,000 units/ml 10ml inj HE ONE ×2 (08:35)
[2018-08-19] MEDS: insulin Lispro (HumaLOG) vial - multi-dose SQ SCH (08:51)
[2018-08-19 09:50] LABS: % IRON SATURATION 31 % (11-46); IRON 49 UG/DL (53-167); TOTAL IRON BINDING CAPACITY 160 UG/DL (259-388)
[2018-08-19 09:53] LABS: FERRITIN 724 NG/ML (26-388)
[2018-08-19 10:00] VITALS: BP 166/76
[2018-08-19] MEDS: MESSAGE TO NURSING PO NR (10:00)
[2018-08-19 11:00] VITALS: BP 105/65
[2018-08-19] MEDS ORDERED: FOLI0.8T7 PO (15:05)
== END 2018-08-19 16:58 | disposition home or self-care (01) | DRG 673 ==
LOC: ER 08:57 → ED HOLD 14:17 → PCU 3S 16:00
PROVIDERS: ADMIT Family Medicine; ATTEND Internal Medicine Critical Care Medicine
PROC: 0JH63XZ Insertion of Tunneled Vascular Access Device into Chest Subcutaneous Tissue and Fascia, Percutaneous Approach (ICD-10-PCS; principal; 2018-08-14)
PROC: 02HV33Z Insertion of Infusion Device into Superior Vena Cava, Percutaneous Approach (ICD-10-PCS; 2018-08-14)
PROC: B548ZZA Ultrasonography of Superior Vena Cava, Guidance (ICD-10-PCS; 2018-08-14)
PROC: 5A1D70Z Performance of Urinary Filtration, Intermittent, Less than 6 Hours Per Day (ICD-10-PCS; 2018-08-14)
PROC: 5A1D70Z Performance of Urinary Filtration, Intermittent, Less than 6 Hours Per Day (ICD-10-PCS; 2018-08-15)
PROC: 3E02340 Introduction of Influenza Vaccine into Muscle, Percutaneous Approach (ICD-10-PCS; 2018-08-15)
PROC: 5A1D70Z Performance of Urinary Filtration, Intermittent, Less than 6 Hours Per Day (ICD-10-PCS; 2018-08-17)
PROC: 5A1D70Z Performance of Urinary Filtration, Intermittent, Less than 6 Hours Per Day (ICD-10-PCS; 2018-08-19)
DX: N17.9 Acute kidney failure, unspecified (principal); E11.00 Type 2 diabetes mellitus with hyperosmolarity without nonketotic hyperglycemic-hyperosmolar coma (NKHHC); E43 Unspecified severe protein-calorie malnutrition; E87.2 Acidosis; I13.2 Hypertensive heart and chronic kidney disease with heart failure and with stage 5 chronic kidney disease, or end stage renal disease; E87.0 Hyperosmolality and hypernatremia; D63.1 Anemia in chronic kidney disease; N18.6 End stage renal disease; D72.829 Elevated white blood cell count, unspecified; E03.9 Hypothyroidism, unspecified; E87.5 Hyperkalemia; E11.22 Type 2 diabetes mellitus with diabetic chronic kidney disease; E11.43 Type 2 diabetes mellitus with diabetic autonomic (poly)neuropathy; E78.00 Pure hypercholesterolemia, unspecified; E78.5 Hyperlipidemia, unspecified; E11.319 Type 2 diabetes mellitus with unspecified diabetic retinopathy without macular edema; I50.9 Heart failure, unspecified; K21.9 Gastro-esophageal reflux disease without esophagitis; I48.91 Unspecified atrial fibrillation; K31.84 Gastroparesis; F12.90 Cannabis use, unspecified, uncomplicated; F32.9 Major depressive disorder, single episode, unspecified; G89.29 Other chronic pain; Z79.4 Long term (current) use of insulin; Z23 Encounter for immunization; Z90.49 Acquired absence of other specified parts of digestive tract; Z82.3 Family history of stroke; Z83.3 Family history of diabetes mellitus; Z82.49 Family history of ischemic heart disease and other diseases of the circulatory system; Z79.899 Other long term (current) drug therapy; Z79.82 Long term (current) use of aspirin; Z68.24 Body mass index [BMI] 24.0-24.9, adult
CPT/HCPCS: 36415; 36558; 71045; 74176; 76937; 77001; 80048; 80053; 80202; 81001; 82728; 82948; 83036; 83540; 83550; 83605; 83690; 83735; 84100; 84443; 85025; 85610; 85730; 87040; 87070; 87088; 87340; 93005; 93306; 96361; 96374; 96375; 96376; 97116; 97161; 97530; 99285; A4620; A9270; C1750; C1894; C9113; G0257; J0360; J0780; J0885; J1644; J1815; J2150; J2405; J2543; J2765; J3010; J3370; J3475; J3480; J3490; J7030; P9045; Q2037

== ENCOUNTER 2019-02-01 23:10 | Inpatient (IN) | payer BC | END 2019-02-05 15:40 | disposition home or self-care (01) | LOC: ED HOLD 02-02 01:12 → ER 23:10 → PCU 3S 02-04 16:15 → CICU 2S 02-02 05:15 ==

== ENCOUNTER 2019-02-13 04:17 | Emergency (ER) | payer BC ==
[~2019-02-13] VITALS: Ht 167.6 cm; Wt 65.9 kg
[~2019-02-13 04:17] MED LIST changes: -ATOR40TA71 PO; -CLON0.2T PO; -FERR325T39 PO; +FOLI0.8T7 PO; -GLIP5TAB13 PO; -LEVO100T PO; +LEVO125T PO; -LISI-600 PO; +LISI-643 PO; -MAGN296S50 PO; +ONDA4TAB12 PO; +PHO667C PO; +ROSU40TA21 PO; +SITA25TA3 PO
[2019-02-13] MEDS ORDERED: LORazepam 2 mg/ml vial IV ONE (04:45)
[2019-02-13] MEDS ORDERED: proCHLORperazine 10 MG/2 ml inj IV ONE ×2 (04:45)
[2019-02-13] MEDS ORDERED: normal saline 1000ml 1,000 ML IV ONE ×2 (04:50→05:40)
[2019-02-13] MEDS ORDERED: pantoprazole 40 MG vial IV ONE (04:55)
[2019-02-13 05:02] LABS: ANION GAP 11 (8-16); BLOOD UREA NITROGEN 27 MG/DL (7-18); BUN/CREATININE RATIO 5.7 (5.4-32.0); CHLORIDE 100 MMOL/L (99-107); CREATININE 4.75 MG/DL (0.60-1.10); GLUCOSE 185 MG/DL (70-104); POTASSIUM 3.8 MMOL/L (3.5-5.1); SODIUM 139 MMOL/L (135-145); TOTAL CARBON DIOXIDE 27.6 MMOL/L (24-32)
[2019-02-13 05:03] LABS: ALANINE AMINOTRANSFERASE 29 U/L (12-78); ALBUMIN 3.5 G/DL (3.4-5.0); ALBUMIN/GLOBULIN RATIO 0.9 (1.1-1.5); ALKALINE PHOSPHATASE 80 IU/L (46-116); ASPARTATE AMINO TRANSFERASE 21 U/L (10-37); BILIRUBIN,TOTAL 0.4 MG/DL (0.1-1.0); CALCIUM 9.5 MG/DL (8.5-10.1); TOTAL PROTEIN 7.2 G/DL (6.4-8.2); eGFR 13 ML/MIN
[2019-02-13 05:05] LABS: PROTHROMBIN TIME 10.3 SECONDS (9.0-12.0)
[2019-02-13 05:08] LABS: BASOPHILS # (AUTO) 0.1 X10'3 (0-0.2); BASOPHILS % (AUTO) 0.5 % (0-1); EOSINOPHILS % (AUTO) 0.4 % (0-6); HEMATOCRIT 29.9 % (42.0-52.0); HEMOGLOBIN 9.9 g/dl (14.0-17.9); LYMPHOCYTES # (AUTO) 1.7 X10'3 (1.1-4.8); LYMPHOCYTES % (AUTO) 17.5 % (21-51); MEAN CORPUSCULAR HEMOGLOBIN 30.6 PG (27.0-31.0); MEAN CORPUSCULAR HGB CONC 33.2 g/dL (33.0-36.5); MEAN CORPUSCULAR VOLUME 92.3 FL (78-98); MEAN PLATELET VOLUME 6.8 FL (7.4-10.4); MONOCYTES # (AUTO) 0.8 X10'3 (0-0.9); MONOCYTES % (AUTO) 8.4 % (2-12); NEUTROPHILS # (AUTO) 7.2 X10'3 (1.8-7.7); NEUTROPHILS % (AUTO) 73.2 % (42-75); PLATELET COUNT 299 X10'3 (140-440); RED BLOOD COUNT 3.24 X10'6 (4.70-6.10); RED CELL DISTRIBUTION WIDTH 17.1 % (11.5-14.5); WHITE BLOOD COUNT 9.9 X10'3 (4.5-11.0)
[2019-02-13 05:14] LABS: CHOL/HDL RATIO 2.2 (0.00-4.99); CHOLESTEROL 91 MG/DL (0-200); HDL CHOLESTEROL 41 MG/DL (35-60); LDL CHOLESTEROL 36 MG/DL (50-100); MAGNESIUM 1.9 MG/DL (1.5-2.4); TRIGLYCERIDES 126 MG/DL (20-135); TROPONIN I 0.05 NG/ML (0.0-0.05)
[2019-02-13] MEDS ORDERED: ondansetron/PF 4mg/2ml inj IV ONE (05:40)
[2019-02-13] MEDS ORDERED: morphine 4 MG/ML inj SYRINge IV ONE (05:40)
[2019-02-13 05:50] LABS: ETHANOL < 0.010 GM/DL (0.0-0.010); LIPASE 147 U/L (73-393)
--- NOTE | 2019-02-13 06:11 | NUR ---
PATIENT UNABLE TO URINATE
--- NOTE | 2019-02-13 06:19 | NUR ---
PATIENT IN ROOM FROM CT.
[2019-02-13] MEDS ORDERED: diphenhydrAMINE 50 mg/ml inj IV ONE (06:20)
[2019-02-13] MEDS ORDERED: haloperidol lactate 5mg/ml inj IM ONE (06:20)
--- NOTE | 2019-02-13 06:20 | NUR ---
DR. KENDRICK AT BEDSIDE.
--- NOTE | 2019-02-13 07:20 | NUR ---
po challenge with 5 oz water.will monitor.
[2019-02-13] MEDS ORDERED: metoclopramide 5 mg/ml inj IV ONE (07:40)
--- NOTE | 2019-02-13 07:41 | NUR ---
no emesis but reports nausea,Dr. Sanchez aware.
--- NOTE | 2019-02-13 08:38 | NUR ---
LEFT MESSAGE WITH BROTHER CEDRIC TO COME PICK HIM UP.
--- NOTE | 2019-02-13 08:39 | NUR ---
CEDRIC [phone]
--- NOTE | 2019-02-13 08:45 | NUR ---
CEDRIC IS ON HIS WAY TO PICK PT UP
[2019-02-13 08:46] VITALS: BP 155/69
== END 2019-02-13 09:19 | disposition home or self-care (01) ==
LOC: ER 04:18
DX: R11.2 Nausea with vomiting, unspecified (principal); R10.84 Generalized abdominal pain; E78.00 Pure hypercholesterolemia, unspecified; K21.9 Gastro-esophageal reflux disease without esophagitis; E03.9 Hypothyroidism, unspecified; I25.10 Atherosclerotic heart disease of native coronary artery without angina pectoris; I13.0 Hypertensive heart and chronic kidney disease with heart failure and stage 1 through stage 4 chronic kidney disease, or unspecified chronic kidney disease; I50.9 Heart failure, unspecified; N18.9 Chronic kidney disease, unspecified; E11.22 Type 2 diabetes mellitus with diabetic chronic kidney disease; E11.40 Type 2 diabetes mellitus with diabetic neuropathy, unspecified; G89.29 Other chronic pain; F12.90 Cannabis use, unspecified, uncomplicated; F15.90 Other stimulant use, unspecified, uncomplicated; Z79.82 Long term (current) use of aspirin; Z79.899 Other long term (current) drug therapy; Z90.49 Acquired absence of other specified parts of digestive tract; Z99.2 Dependence on renal dialysis
CPT/HCPCS: 36415; 74176; 80053; 80061; 80320; 82948; 83690; 83735; 84484; 85025; 85610; 96361; 96372; 96374; 96375; 99284; C9113; J0780; J1200; J1630; J2060; J2270; J2405; J2765; J7030

== ENCOUNTER 2019-02-16 08:51 | Inpatient (IN) | payer BC ==
[~2019-02-16] VITALS: Ht 167.6 cm; Wt 72.0 kg
[2019-02-16] MEDS ORDERED: normal saline 1000ml 1,000 ML IV ONE (09:11)
[2019-02-16] MEDS ORDERED: aspirin 81mg tab.chew PO ONE (09:15)
[2019-02-16] MEDS ORDERED: morphine 4 MG/ML inj SYRINge IV ONE (09:15)
[2019-02-16] MEDS ORDERED: aspirin 300mg supp.rect RC ONE (09:40)
[2019-02-16] MEDS ORDERED: ondansetron/PF 4mg/2ml inj IV ONE (09:45)
[2019-02-16 09:53] LABS: BASOPHILS % (AUTO) 0.3 % (0-1); EOSINOPHILS % (AUTO) 0.3 % (0-6); HEMATOCRIT 26.3 % (42.0-52.0); HEMOGLOBIN 8.6 g/dl (14.0-17.9); LYMPHOCYTES # (AUTO) 0.5 X10'3 (1.1-4.8); LYMPHOCYTES % (AUTO) 4.6 % (21-51); MEAN CORPUSCULAR HEMOGLOBIN 30.6 PG (27.0-31.0); MEAN CORPUSCULAR HGB CONC 32.9 g/dL (33.0-36.5); MEAN CORPUSCULAR VOLUME 93.1 FL (78-98); MEAN PLATELET VOLUME 6.3 FL (7.4-10.4); MONOCYTES # (AUTO) 0.4 X10'3 (0-0.9); MONOCYTES % (AUTO) 3.8 % (2-12); NEUTROPHILS # (AUTO) 9.5 X10'3 (1.8-7.7); PLATELET COUNT 267 X10'3 (140-440); RED BLOOD COUNT 2.83 X10'6 (4.70-6.10); RED CELL DISTRIBUTION WIDTH 17.1 % (11.5-14.5); WHITE BLOOD COUNT 10.4 X10'3 (4.5-11.0)
[2019-02-16 10:16] LABS: ALANINE AMINOTRANSFERASE 24 U/L (12-78); ALBUMIN 2.7 G/DL (3.4-5.0); ALBUMIN/GLOBULIN RATIO 0.9 (1.1-1.5); ALKALINE PHOSPHATASE 70 IU/L (46-116); ANION GAP 12 (8-16); ASPARTATE AMINO TRANSFERASE 35 U/L (10-37); BILIRUBIN,TOTAL 0.7 MG/DL (0.1-1.0); BLOOD UREA NITROGEN 10 MG/DL (7-18); CALCIUM 8.1 MG/DL (8.5-10.1); CHLORIDE 101 MMOL/L (99-107); CREATININE 2.51 MG/DL (0.60-1.10); GLUCOSE 91 MG/DL (70-104); LIPASE 88 U/L (73-393); MAGNESIUM 1.7 MG/DL (1.5-2.4); SODIUM 139 MMOL/L (135-145); TOTAL CARBON DIOXIDE 26.2 MMOL/L (24-32); TOTAL PROTEIN 5.6 G/DL (6.4-8.2); eGFR 27 ML/MIN
[2019-02-16 10:19] LABS: POTASSIUM 2.7 MMOL/L (3.5-5.1)
[2019-02-16 10:20] LABS: INR 1.1 INR
[2019-02-16 10:21] LABS: PARTIAL THROMBOPLASTIN TIME 31 SECONDS (22-32)
[2019-02-16] MEDS ORDERED: potassium 10mEq/100ml NS w/LIDOcaine (10mg/bag) IV ONE (11:10)
[2019-02-16] MEDS ORDERED: magnesium 2GM in 50ml NS 50 ML IV ONE (11:10)
[2019-02-16] MEDS ORDERED: metoclopramide 5 mg/ml inj IV ONE (11:10)
[2019-02-16] MEDS ORDERED: acetaminophen 325mg tablet PO PRN (11:20)
[2019-02-16] MEDS ORDERED: HYDROcodone/acetaminophen 5mg/325mg tablet PO PRN (11:20)
[2019-02-16] MEDS ORDERED: LORazepam 2 mg/ml vial IV ONE (11:45)
[2019-02-16] MEDS ORDERED: AMLO5TAB PO (12:32)
[2019-02-16] MEDS ORDERED: ASPI81TA47 PO (12:32)
[2019-02-16] MEDS: metoclopramide 5 mg/ml inj IV SCH ×2 (13:13→20:10)
[2019-02-16] MEDS: ondansetron/PF 4mg/2ml inj IV PRN (16:34)
[2019-02-16] MEDS ORDERED: calcium acetate 667mg (PhosLO) capsule PO SCH (18:00)
[2019-02-16] MEDS: heparin, porcine 5000 units/ml vial SQ SCH (20:10)
--- NOTE | 2019-02-16 22:59 | NUR ---
TELEPHONE TO CAPPS AT THIS TIME FOR K 3.2, NO NEW ORDERS AT THIS TIME, ALREADY AWARE OF TROP 1.27.
--- NOTE | 2019-02-16 23:07 | NUR ---
Fabián cross in ED - 02/16/[address] BERNARD MADE AWARE OF SBP 60'S X2. CENTRAL LINE SET UP ORDERED.
[2019-02-17] MEDS: metoclopramide 5 mg/ml inj IV SCH ×4 (02:43→19:33)
--- NOTE | 2019-02-17 03:01 | NUR ---
PT VOMITING DESPITE REGLAN DOSE, SMALL AMOUNTS OF CLEAR/YELLOW. PT SAYS HE FEELS FINE JUST NAUSEATED. GLUCOSE IS 71, WILL TREAT WITH HALF AMP DEXTROSE DUE TO NAUSEA. WILL TRY ZOFRAN
[2019-02-17] MEDS ORDERED: dextrose 50%-water 50ml dispensing syringe IV ONE (03:02)
[2019-02-17] MEDS: ondansetron/PF 4mg/2ml inj IV PRN ×3 (03:04→23:46)
--- NOTE | 2019-02-17 04:21 | NUR ---
PT VOMITED HAS SUBSIDED, STILL SAYS "STOMACH FEELS SOUR"
[2019-02-17] MEDS: calcium acetate 667mg (PhosLO) capsule PO SCH ×3 (07:00→18:51)
[2019-02-17] MEDS: amLODIPine 5mg tablet PO SCH ×2 (08:00→15:00)
[2019-02-17] MEDS: atorvastatin 20mg tablet PO SCH (08:00)
[2019-02-17] MEDS ORDERED: furosemide 40mg tablet PO SCH (08:00)
[2019-02-17] MEDS ORDERED: FISH OIL PO SCH (08:00)
[2019-02-17] MEDS: lisinopril 10 MG tablet PO SCH ×2 (08:00→15:00)
[2019-02-17] MEDS: aspirin 81mg tablet.DR PO SCH (08:00)
[2019-02-17] MEDS ORDERED: BORAGE PO SCH (08:00)
[2019-02-17] MEDS: levoTHYROXINE 125mcg tablet PO SCH (08:00)
[2019-02-17] MEDS ORDERED: [UNRECOGNIZED DRUG - OTHER] PO SCH (08:00)
[2019-02-17] MEDS ORDERED: FLAX PO SCH (08:00)
[2019-02-17] MEDS: linagliptin 5mg tablet PO SCH (08:00)
[2019-02-17] MEDS: heparin, porcine 5000 units/ml vial SQ SCH ×2 (09:29→19:33)
[2019-02-17 09:34] LABS: BASOPHILS # (AUTO) 0.1 X10'3 (0-0.2); BASOPHILS % (AUTO) 0.5 % (0-1); EOSINOPHILS % (AUTO) 0.2 % (0-6); HEMATOCRIT 30.3 % (42.0-52.0); LYMPHOCYTES # (AUTO) 1.2 X10'3 (1.1-4.8); LYMPHOCYTES % (AUTO) 11.1 % (21-51); MEAN CORPUSCULAR VOLUME 93.8 FL (78-98); MEAN PLATELET VOLUME 6.5 FL (7.4-10.4); MONOCYTES % (AUTO) 8.8 % (2-12); NEUTROPHILS # (AUTO) 8.7 X10'3 (1.8-7.7); NEUTROPHILS % (AUTO) 79.4 % (42-75); PLATELET COUNT 300 X10'3 (140-440); RED BLOOD COUNT 3.23 X10'6 (4.70-6.10); RED CELL DISTRIBUTION WIDTH 17.9 % (11.5-14.5)
[2019-02-17] MEDS: pantoprazole 40mg Tablet.DR PO SCH (09:37)
[2019-02-17 09:51] LABS: ALANINE AMINOTRANSFERASE 31 U/L (12-78); ALBUMIN 2.9 G/DL (3.4-5.0); ALBUMIN/GLOBULIN RATIO 0.9 (1.1-1.5); ALKALINE PHOSPHATASE 76 IU/L (46-116); ANION GAP 14 (8-16); ASPARTATE AMINO TRANSFERASE 31 U/L (10-37); BILIRUBIN,TOTAL 0.6 MG/DL (0.1-1.0); BLOOD UREA NITROGEN 15 MG/DL (7-18); BUN/CREATININE RATIO 4.1 (5.4-32.0); CALCIUM 8.6 MG/DL (8.5-10.1); CHLORIDE 102 MMOL/L (99-107); CREATININE 3.68 MG/DL (0.60-1.10); GLUCOSE 92 MG/DL (70-104); MAGNESIUM 2.1 MG/DL (1.5-2.4); PHOSPHORUS 2.6 MG/DL (2.3-4.5); POTASSIUM 3.3 MMOL/L (3.5-5.1); SODIUM 143 MMOL/L (135-145); TOTAL PROTEIN 6.1 G/DL (6.4-8.2); eGFR 17 ML/MIN
[2019-02-17 16:56] VITALS: BP 165/81
[2019-02-17] MEDS ORDERED: glucagon, human recombinant 1mg kit SUBCUT PRN (17:25)
[2019-02-17] MEDS ORDERED: insulin Lispro (HumaLOG) vial - multi-dose SQ SCH (17:25)
[2019-02-17] MEDS ORDERED: MESSAGE TO PHARMACY PO ONE (17:25)
[2019-02-17] MEDS ORDERED: dextrose 50%-water 50ml dispensing syringe IV PRN ×2 (17:25)
[2019-02-17] MEDS ORDERED: bisacodyl 10mg suppository rectal RC PRN (17:25)
[2019-02-17] MEDS ORDERED: dextrose ORAL solution 15 GM/59 ML bottle PO PRN ×2 (17:25)
--- NOTE | 2019-02-17 17:26 | NUR ---
MD kings talavera with NS at 20ml/hr, informed him of patient last BM, and no accuchecks. new orders entered
--- NOTE | 2019-02-17 18:15 | NUR ---
Patient in room PCU 3016. I have received report from Rosa STOVER and had the opportunity to ask questions and assume patient care.
[2019-02-17] MEDS ORDERED: insulin glargine (Lantus) pen - multi-dose SQ SCH (21:00)
[2019-02-17 23:00] VITALS: BP 168/77
[2019-02-18] MEDS: metoclopramide 5 mg/ml inj IV SCH ×2 (01:16→07:21)
--- NOTE | 2019-02-18 02:04 | NUR ---
Paged Dr. Jung PAGER ID: [phone] MESSAGE: Abdulkadir STOVER [phone] [id number]: Gualberto Velasquez: BP 184/91. Two prior BPs in the 160s. Pt sleeping. no PRN antihypertensives ordered. Thank you.
[2019-02-18 03:00] VITALS: BP 184/85
[2019-02-18 05:50] LABS: BASOPHILS # (AUTO) 0.1 X10'3 (0-0.2); BASOPHILS % (AUTO) 0.8 % (0-1); EOSINOPHILS # (AUTO) 0.1 X10'3 (0-0.9); EOSINOPHILS % (AUTO) 0.9 % (0-6); HEMATOCRIT 28.1 % (42.0-52.0); HEMOGLOBIN 9.2 g/dl (14.0-17.9); LYMPHOCYTES # (AUTO) 0.6 X10'3 (1.1-4.8); LYMPHOCYTES % (AUTO) 8.1 % (21-51); MEAN CORPUSCULAR HEMOGLOBIN 30.8 PG (27.0-31.0); MEAN CORPUSCULAR HGB CONC 32.8 g/dL (33.0-36.5); MEAN CORPUSCULAR VOLUME 93.8 FL (78-98); MEAN PLATELET VOLUME 6.5 FL (7.4-10.4); MONOCYTES # (AUTO) 0.6 X10'3 (0-0.9); NEUTROPHILS % (AUTO) 82.2 % (42-75); PLATELET COUNT 289 X10'3 (140-440); RED CELL DISTRIBUTION WIDTH 17.6 % (11.5-14.5); WHITE BLOOD COUNT 7.3 X10'3 (4.5-11.0)
[2019-02-18 06:16] LABS: ALANINE AMINOTRANSFERASE 29 U/L (12-78); ALBUMIN 2.8 G/DL (3.4-5.0); ALBUMIN/GLOBULIN RATIO 0.9 (1.1-1.5); ALKALINE PHOSPHATASE 73 IU/L (46-116); ANION GAP 14 (8-16); ASPARTATE AMINO TRANSFERASE 29 U/L (10-37); BILIRUBIN,TOTAL 0.4 MG/DL (0.1-1.0); BLOOD UREA NITROGEN 18 MG/DL (7-18); BUN/CREATININE RATIO 4.8 (5.4-32.0); CALCIUM 8.5 MG/DL (8.5-10.1); CHLORIDE 101 MMOL/L (99-107); CREATININE 3.75 MG/DL (0.60-1.10); GLUCOSE 92 MG/DL (70-104); MAGNESIUM 1.9 MG/DL (1.5-2.4); SODIUM 140 MMOL/L (135-145); TOTAL CARBON DIOXIDE 25.2 MMOL/L (24-32); eGFR 17 ML/MIN
--- NOTE | 2019-02-18 06:55 | NUR ---
Paged Dr. Jung PAGER ID: [phone] MESSAGE: Abdulkadir STOVER [phone] Gualberto Velasquez: Critical Lab value K+ 3.0. Thank you.
[2019-02-18 07:00] VITALS: BP 194/78
[2019-02-18] MEDS: pantoprazole 40mg Tablet.DR PO SCH (07:19)
[2019-02-18] MEDS: linagliptin 5mg tablet PO SCH (07:19)
[2019-02-18] MEDS: atorvastatin 20mg tablet PO SCH (07:19)
[2019-02-18] MEDS: aspirin 81mg tablet.DR PO SCH (07:20)
[2019-02-18] MEDS: calcium acetate 667mg (PhosLO) capsule PO SCH ×2 (07:20→12:30)
[2019-02-18] MEDS: levoTHYROXINE 125mcg tablet PO SCH (07:20)
[2019-02-18] MEDS: heparin, porcine 5000 units/ml vial SQ SCH (07:21)
[2019-02-18] MEDS: lisinopril 10 MG tablet PO SCH (07:22)
[2019-02-18] MEDS: amLODIPine 5mg tablet PO SCH (07:23)
[2019-02-18] MEDS ORDERED: normal saline 1000ml 250 ML IV PRN (09:15)
[2019-02-18] MEDS ORDERED: epoetin 20,000 units/ml inj IV ONE (09:15)
[2019-02-18] MEDS ORDERED: heparin 1,000unit/ml 10ml vial 10 ML IV ONE (09:15)
[2019-02-18] MEDS ORDERED: heparin 1,000 units/ml 10ml inj HE ONE ×2 (09:20)
[2019-02-18 11:00] VITALS: BP 170/88
[2019-02-18] MEDS ORDERED: METO5TAB98 PO (14:37)
[2019-02-18] MEDS ORDERED: LISI10TA4 PO (14:37)
[2019-02-18] MEDS ORDERED: NOR5T PO (14:37)
--- NOTE | 2019-02-18 16:17 | NUR ---
Patient Discharged. Patient discharged home via private vehicle accompanied by older brother. IV catheter removed prior to discharge, catheter intact. Tele leads removed prior to discharge, tele box returned to telescope repairer. Discharge instructions discussed with patient via RN. All belongings sent home with patient. New prescriptions called into patient's preferred pharmacy prior to discharge. Patient escorted out of hospital in wheelchair accompanied by RN. All questions and concerns addressed with patient prior to discharge.
[2019-02-21] MEDS ORDERED: POLY17PO10 PO (17:21)
[2019-02-21] MEDS ORDERED: ONDA4TAB6 PO (17:21)
== END 2019-02-18 16:08 | disposition home or self-care (01) | DRG 73 ==
LOC: ER 08:52 → PCU 3S 02-17 15:56 → CMPBEDREQ 02-17 22:39
PROVIDERS: ADMIT Internal Medicine Critical Care Medicine; ATTEND Internal Medicine Critical Care Medicine
PROC: 5A1D70Z Performance of Urinary Filtration, Intermittent, Less than 6 Hours Per Day (ICD-10-PCS; principal; 2019-02-18)
DX: E11.43 Type 2 diabetes mellitus with diabetic autonomic (poly)neuropathy (principal); N18.6 End stage renal disease; I13.2 Hypertensive heart and chronic kidney disease with heart failure and with stage 5 chronic kidney disease, or end stage renal disease; D64.9 Anemia, unspecified; E03.9 Hypothyroidism, unspecified; E11.22 Type 2 diabetes mellitus with diabetic chronic kidney disease; E11.42 Type 2 diabetes mellitus with diabetic polyneuropathy; E78.00 Pure hypercholesterolemia, unspecified; E87.6 Hypokalemia; G89.4 Chronic pain syndrome; F12.90 Cannabis use, unspecified, uncomplicated; I48.0 Paroxysmal atrial fibrillation; I50.9 Heart failure, unspecified; F32.9 Major depressive disorder, single episode, unspecified; K21.9 Gastro-esophageal reflux disease without esophagitis; K31.84 Gastroparesis; Z79.84 Long term (current) use of oral hypoglycemic drugs; Z79.890 Hormone replacement therapy; Z82.3 Family history of stroke; Z82.49 Family history of ischemic heart disease and other diseases of the circulatory system; Z83.3 Family history of diabetes mellitus; Z99.2 Dependence on renal dialysis; Z90.49 Acquired absence of other specified parts of digestive tract; Z79.899 Other long term (current) drug therapy; Z79.82 Long term (current) use of aspirin
CPT/HCPCS: 36415; 71045; 80053; 82948; 83605; 83690; 83735; 84100; 84132; 84484; 85025; 85610; 85730; 87040; 87070; 93005; 96365; 96368; 96375; 96376; 99291; G0257; G0378; J0885; J1644; J1815; J2270; J2405; J2765; J3475; J3480; J8597

== ENCOUNTER 2019-10-07 07:57 | Emergency (ER) | payer BC ==
[~2019-10-07] VITALS: Ht 165.1 cm; Wt 90.0 kg
[~2019-10-07 07:57] MED LIST changes: -AMLO5TAB4 PO; +ASPI81TA47 PO; -ASPI81TA52 PO; -FOLI0.8T7 PO; -LISI-643 PO; +LISI10TA4 PO; +METO5TAB98 PO; +NOR5T PO; -ONDA4TAB12 PO; +ONDA4TAB6 PO; -ROSU40TA21 PO; +ROSU40TA22 PO
[2019-10-07] MEDS ORDERED: normal saline 1000ML IV soln IVB ONE ×2 (08:10→08:15)
[2019-10-07] MEDS ORDERED: amiodarone 50MG/ML inj IV ONE (08:25)
[2019-10-07] MEDS ORDERED: amiodarone in dextrose, iso-osm 150mg/100ml bag IV ONE (08:45)
[2019-10-07 09:10] LABS: BASOPHILS % (AUTO) 0.4 % (0-1); EOSINOPHILS # (AUTO) 0.1 X10'3 (0-0.9); EOSINOPHILS % (AUTO) 0.8 % (0-6); HEMATOCRIT 30.5 % (42.0-52.0); HEMOGLOBIN 10.3 g/dl (14.0-17.9); LYMPHOCYTES # (AUTO) 1.1 X10'3 (1.1-4.8); LYMPHOCYTES % (AUTO) 11.2 % (21-51); MEAN CORPUSCULAR HEMOGLOBIN 32.2 PG (27.0-31.0); MEAN CORPUSCULAR HGB CONC 33.7 g/dL (33.0-36.5); MEAN CORPUSCULAR VOLUME 95.5 FL (78-98); MEAN PLATELET VOLUME 7.1 FL (7.4-10.4); MONOCYTES # (AUTO) 0.7 X10'3 (0-0.9); MONOCYTES % (AUTO) 6.9 % (2-12); NEUTROPHILS # (AUTO) 8.2 X10'3 (1.8-7.7); NEUTROPHILS % (AUTO) 80.7 % (42-75); PLATELET COUNT 217 X10'3 (140-440); RED BLOOD COUNT 3.19 X10'6 (4.70-6.10); RED CELL DISTRIBUTION WIDTH 15.2 % (11.5-14.5); WHITE BLOOD COUNT 10.1 X10'3 (4.5-11.0)
[2019-10-07 09:19] LABS: ALANINE AMINOTRANSFERASE 31 U/L (12-78); ALBUMIN 3.3 G/DL (3.4-5.0); ALBUMIN/GLOBULIN RATIO 0.9 (1.1-1.5); ALKALINE PHOSPHATASE 97 IU/L (46-116); ANION GAP 11 (8-16); ASPARTATE AMINO TRANSFERASE 29 U/L (10-37); BILIRUBIN,TOTAL 0.4 MG/DL (0.1-1.0); BLOOD UREA NITROGEN 42 MG/DL (7-18); BUN/CREATININE RATIO 12.6 (5.4-32.0); CALCIUM 9.4 MG/DL (8.5-10.1); CHLORIDE 97 MMOL/L (99-107); CREATININE 3.33 MG/DL (0.60-1.10); GLUCOSE 140 MG/DL (70-104); SODIUM 137 MMOL/L (135-145); TOTAL CARBON DIOXIDE 29.3 MMOL/L (24-32); TOTAL PROTEIN 7.1 G/DL (6.4-8.2); eGFR 19 ML/MIN
--- NOTE | 2019-10-07 09:22 | NUR ---
Amio bolus started to iv in right upper arm
[2019-10-07 09:26] LABS: POTASSIUM 3.8 MMOL/L (3.5-5.1)
--- NOTE | 2019-10-07 09:29 | NUR ---
AMIO BOULS FINISHED
[2019-10-07 09:33] VITALS: BP 116/65
[2019-10-07 09:35] LABS: MAGNESIUM 1.7 MG/DL (1.5-2.4)
--- NOTE | 2019-10-07 09:43 | NUR ---
Per Dr Blankenship, Hold the Fluid bolus at this time.
== END 2019-10-07 10:07 | disposition home or self-care (01) ==
LOC: ER 07:57
DX: E11.22 Type 2 diabetes mellitus with diabetic chronic kidney disease (principal); I13.2 Hypertensive heart and chronic kidney disease with heart failure and with stage 5 chronic kidney disease, or end stage renal disease; I50.9 Heart failure, unspecified; N18.6 End stage renal disease; Z99.2 Dependence on renal dialysis; E11.42 Type 2 diabetes mellitus with diabetic polyneuropathy; E78.00 Pure hypercholesterolemia, unspecified; K21.9 Gastro-esophageal reflux disease without esophagitis; E03.9 Hypothyroidism, unspecified; G89.29 Other chronic pain; F32.9 Major depressive disorder, single episode, unspecified; F12.90 Cannabis use, unspecified, uncomplicated; F15.90 Other stimulant use, unspecified, uncomplicated; Z90.49 Acquired absence of other specified parts of digestive tract; Z79.82 Long term (current) use of aspirin; Z79.899 Other long term (current) drug therapy
CPT/HCPCS: 36415; 71045; 80053; 83735; 83880; 84484; 85025; 93005; 96374; 99284; J0282

== ENCOUNTER 2019-12-20 08:07 | Inpatient (IN) | payer BC ==
[~2019-12-20] VITALS: Ht 167.6 cm; Wt 77.3 kg
[2019-12-20] MEDS ORDERED: LORazepam 2 mg/ml vial IV ONE ×2 (08:25→13:00)
[2019-12-20] MEDS ORDERED: normal saline 1000ML IV soln IVB ONE ×2 (08:25→09:45)
[2019-12-20] MEDS ORDERED: ondansetron/PF 4mg/2ml inj IV ONE ×3 (08:25→12:55)
[2019-12-20 09:09] LABS: BASOPHILS # (AUTO) 0.1 X10'3 (0-0.2); BASOPHILS % (AUTO) 0.4 % (0-1); EOSINOPHILS % (AUTO) 0.1 % (0-6); HEMATOCRIT 35.3 % (42.0-52.0); HEMOGLOBIN 11.8 g/dl (14.0-17.9); LYMPHOCYTES # (AUTO) 1.1 X10'3 (1.1-4.8); LYMPHOCYTES % (AUTO) 8.2 % (21-51); MEAN CORPUSCULAR HGB CONC 33.4 g/dL (33.0-36.5); MEAN CORPUSCULAR VOLUME 95.7 FL (78-98); MEAN PLATELET VOLUME 6.7 FL (7.4-10.4); MONOCYTES # (AUTO) 0.4 X10'3 (0-0.9); MONOCYTES % (AUTO) 3.1 % (2-12); NEUTROPHILS # (AUTO) 11.8 X10'3 (1.8-7.7); NEUTROPHILS % (AUTO) 88.2 % (42-75); PLATELET COUNT 264 X10'3 (140-440); RED BLOOD COUNT 3.69 X10'6 (4.70-6.10); RED CELL DISTRIBUTION WIDTH 14.3 % (11.5-14.5); WHITE BLOOD COUNT 13.3 X10'3 (4.5-11.0)
[2019-12-20 09:21] LABS: ALANINE AMINOTRANSFERASE 33 U/L (12-78); ALBUMIN 4.3 G/DL (3.4-5.0); ALBUMIN/GLOBULIN RATIO 1.1 (1.1-1.5); ALKALINE PHOSPHATASE 98 IU/L (46-116); ANION GAP 17 (8-16); ASPARTATE AMINO TRANSFERASE 29 U/L (10-37); BILIRUBIN,TOTAL 0.4 MG/DL (0.1-1.0); BLOOD UREA NITROGEN 59 MG/DL (7-18); BUN/CREATININE RATIO 10.5 (5.4-32.0); CALCIUM 10.8 MG/DL (8.5-10.1); CHLORIDE 98 MMOL/L (99-107); CREATININE 5.64 MG/DL (0.60-1.10); GLUCOSE 348 MG/DL (70-104); POTASSIUM 3.6 MMOL/L (3.5-5.1); SODIUM 138 MMOL/L (135-145); TOTAL CARBON DIOXIDE 23.2 MMOL/L (24-32); TOTAL PROTEIN 8.3 G/DL (6.4-8.2); eGFR 10 ML/MIN
[2019-12-20] MEDS ORDERED: haloperidol lactate 5mg/ml inj IM ONE (09:35)
[2019-12-20] MEDS ORDERED: hydrALAZINE 20mg/ml inj. IV ONE (10:20)
--- NOTE | 2019-12-20 12:42 | NUR ---
Pt is still heaving and attempting to vomit. Pt reports pain 7/10 and persistent nausea. Provider to be notified of the nausea.
[2019-12-20] MEDS ORDERED: LEVO137T24 PO (13:45)
[2019-12-20] MEDS ORDERED: acetaminophen 325mg tablet PO PRN (14:15)
[2019-12-20] MEDS ORDERED: HYDROcodone/acetaminophen 10/325mg tab PO PRN (14:15)
[2019-12-20] MEDS ORDERED: ERGO500056 PO (14:30)
[2019-12-20] MEDS ORDERED: AMA1T PO (14:30)
[2019-12-20] MEDS ORDERED: ONDA4TAB12 PO (14:33)
[2019-12-20] MEDS ORDERED: METO-543 PO (14:33)
[2019-12-20] MEDS ORDERED: LISI-600 PO (14:33)
[2019-12-20] MEDS ORDERED: AMLO10TA13 PO (14:33)
--- NOTE | 2019-12-20 15:22 | NUR ---
Patient in room ED 11. I have received report from Bina STOVER and had the opportunity to ask questions. Awaiting pts arrival to the unit.
[2019-12-20 15:58] VITALS: BP 158/63
[2019-12-20] MEDS: ondansetron/PF 4mg/2ml inj IV PRN (16:06)
[2019-12-20] MEDS: LORazepam 2 mg/ml vial IV PRN (16:25)
[2019-12-20] MEDS ORDERED: calcium acetate 667mg (PhosLO) capsule PO PRN ×2 (17:00→17:24)
[2019-12-20] MEDS: calcium acetate 667mg (PhosLO) capsule PO SCH (17:00)
--- NOTE | 2019-12-20 17:10 | NUR ---
Called Dr. Osborne to ask for hyper/hypoglycemia orders for this pt, he said he would enter them himself. Will continue to monitor the pt closely.
[2019-12-20] MEDS: OMEGA-3/DHA/EPA/FISH OIL 1 EACH CAPSULE.DR PO SCH (17:20)
[2019-12-20] MEDS ORDERED: glimepiride 1 MG tablet PO SCH (17:30)
--- NOTE | 2019-12-20 18:22 | NUR ---
Problems reprioritized. Patient report given, questions answered & plan of care reviewed with Rose STOVER.
--- NOTE | 2019-12-20 18:25 | NUR ---
Patient in room PCU 3026. I have received report from Camryn STOVER and had the opportunity to ask questions and assume patient care.
[2019-12-20 18:30] VITALS: BP 183/76
--- NOTE | 2019-12-20 18:46 | NUR ---
Patient very lethargic at this time. He is arousable and verbal but drowsy and difficult to understand.
[2019-12-20] MEDS ORDERED: dextrose ORAL solution 15 GM/59 ML bottle PO PRN ×2 (19:05)
[2019-12-20] MEDS ORDERED: dextrose 50%-water 50ml dispensing syringe IV PRN ×2 (19:05)
[2019-12-20] MEDS ORDERED: MESSAGE TO PHARMACY PO ONE (19:05)
[2019-12-20] MEDS ORDERED: glucagon, human recombinant 1mg kit SUBCUT PRN (19:05)
--- NOTE | 2019-12-20 19:06 | NUR ---
Notified Josh Khan of patient's blood pressure of 183/76. He said that he does not want it a whole lot lower than this but gave order for Hydralazine for SBP >175. Also obtained order for hyperglycemic protocol.
[2019-12-20] MEDS: docusate sod 100mg capsule PO SCH (19:17)
[2019-12-20] MEDS: insulin Lispro (HumaLOG) vial - multi-dose SQ SCH (19:27)
[2019-12-20] MEDS: hydrALAZINE 20mg/ml inj. IV PRN (19:28)
[2019-12-20] MEDS: heparin, porcine 5000 units/ml vial SQ SCH (19:28)
[2019-12-20 20:10] LABS: HEMOGLOBIN A1C 7.2 % (4.5-6.2)
[2019-12-20] MEDS: insulin glargine (Lantus) pen - multi-dose SQ SCH (21:06)
--- NOTE | 2019-12-20 21:10 | NUR ---
Attempted to dart patient at this time but was unable to because he is extremely lethargic. He will only sustain eye opening briefly before falling back to sleep and he will mumble a few words at a time but is not oriented other than to self and is giving very minimal verbal responses.
[2019-12-20 22:00] VITALS: BP 132/74
[2019-12-20] MEDS: ondansetron 4mg rapidly disintigrating tab PO SCH (23:53)
[2019-12-21] VITALS (7 sets, daily range): BP systolic 108–158; BP diastolic 50–79
[2019-12-21 06:13] LABS: BASOPHILS % (AUTO) 0.2 % (0-1); EOSINOPHILS % (AUTO) 0.1 % (0-6); HEMATOCRIT 30.8 % (42.0-52.0); HEMOGLOBIN 10.3 g/dl (14.0-17.9); LYMPHOCYTES # (AUTO) 1.1 X10'3 (1.1-4.8); LYMPHOCYTES % (AUTO) 7.9 % (21-51); MEAN CORPUSCULAR HEMOGLOBIN 31.6 PG (27.0-31.0); MEAN CORPUSCULAR HGB CONC 33.3 g/dL (33.0-36.5); MEAN CORPUSCULAR VOLUME 94.9 FL (78-98); MEAN PLATELET VOLUME 6.6 FL (7.4-10.4); MONOCYTES # (AUTO) 0.9 X10'3 (0-0.9); MONOCYTES % (AUTO) 6.9 % (2-12); NEUTROPHILS # (AUTO) 11.5 X10'3 (1.8-7.7); NEUTROPHILS % (AUTO) 84.9 % (42-75); PLATELET COUNT 238 X10'3 (140-440); RED BLOOD COUNT 3.25 X10'6 (4.70-6.10); RED CELL DISTRIBUTION WIDTH 14.6 % (11.5-14.5); WHITE BLOOD COUNT 13.6 X10'3 (4.5-11.0)
--- NOTE | 2019-12-21 06:19 | NUR ---
Problems reprioritized. Patient report given, questions answered & plan of care reviewed with Dina STOVER.
[2019-12-21 06:24] LABS: ALANINE AMINOTRANSFERASE 31 U/L (12-78); ALBUMIN 3.5 G/DL (3.4-5.0); ALKALINE PHOSPHATASE 72 IU/L (46-116); ANION GAP 12 (8-16); ASPARTATE AMINO TRANSFERASE 28 U/L (10-37); BILIRUBIN,TOTAL 0.4 MG/DL (0.1-1.0); BLOOD UREA NITROGEN 65 MG/DL (7-18); BUN/CREATININE RATIO 11.4 (5.4-32.0); CALCIUM 9.5 MG/DL (8.5-10.1); CHLORIDE 106 MMOL/L (99-107); GLUCOSE 83 MG/DL (70-104); PHOSPHORUS 4.4 MG/DL (2.3-4.5); SODIUM 144 MMOL/L (135-145); TOTAL CARBON DIOXIDE 25.8 MMOL/L (24-32); TOTAL PROTEIN 6.9 G/DL (6.4-8.2); eGFR 10 ML/MIN
[2019-12-21 06:33] LABS: POTASSIUM 2.9 MMOL/L (3.5-5.1)
--- NOTE | 2019-12-21 06:37 | NUR ---
Notified Dr. Khan of potassium of 2.9 , stated, "it's fine, we will just let it correct itself on it's own." was made aware of admitting Dx and plan for H.D. today.
--- NOTE | 2019-12-21 07:07 | NUR ---
Patient in room PCU 3026. I have received report from Shari STOVER and had the opportunity to ask questions and assume patient care.
[2019-12-21] MEDS: ondansetron 4mg rapidly disintigrating tab PO SCH ×2 (07:24→15:33)
[2019-12-21] MEDS: OMEGA-3/DHA/EPA/FISH OIL 1 EACH CAPSULE.DR PO SCH (07:25)
[2019-12-21] MEDS: atorvastatin 20mg tablet PO SCH (07:25)
[2019-12-21] MEDS: levoTHYROXINE 25mcg tablet PO SCH (07:25)
[2019-12-21] MEDS: calcium acetate 667mg (PhosLO) capsule PO SCH ×3 (07:25→17:03)
[2019-12-21] MEDS: pantoprazole 40mg Tablet.DR PO SCH (07:25)
[2019-12-21] MEDS: aspirin 81mg tablet.DR PO SCH (07:25)
[2019-12-21] MEDS: levoTHYROXINE 112mcg tablet PO SCH (07:26)
[2019-12-21] MEDS: amLODIPine 5mg tablet PO SCH (07:26)
[2019-12-21] MEDS: linagliptin 5mg tablet PO SCH (07:26)
[2019-12-21] MEDS: heparin, porcine 5000 units/ml vial SQ SCH ×2 (07:27→20:56)
[2019-12-21] MEDS ORDERED: normal saline 1000ml 250 ML IV PRN (08:00)
[2019-12-21] MEDS ORDERED: LIDOcaine 1% (10mg/ml) 2ml vial SQ ONE (08:00)
[2019-12-21] MEDS ORDERED: heparin 1,000 units/ml 10ml inj IV ONE ×2 (08:00→16:25)
[2019-12-21] MEDS: docusate sod 100mg capsule PO SCH ×2 (08:00→20:55)
[2019-12-21] MEDS: lisinopril 20mg tablet PO SCH (08:00)
[2019-12-21] MEDS: ondansetron/PF 4mg/2ml inj IV PRN ×2 (09:21→17:03)
[2019-12-21] MEDS: furosemide 40mg tablet PO SCH (09:21)
--- NOTE | 2019-12-21 09:31 | NUR ---
Dr. Arceo notified of potassium of 2.9, new orders noted to administer Potassium 40 meq IV X 1 dose. Pt. does not have a central line therefore, orders changed to administer potassium 10 meq IV X 4 doses X 1. First dose adminsitered at 0930.
--- NOTE | 2019-12-21 09:38 | NUR ---
Patient stated he was feeling well this am but did not eat r/t recent N/V, patient was medicated as ordered. Blood sugar 94 therefore, he was not covered for his blood sugar. Pt. is sleeping comfortably at this time.
--- NOTE | 2019-12-21 09:48 | NUR ---
Pt. did take a couple bites of food so that he was able to take his Phoslo. Pt. awaiting dialysis.
--- NOTE | 2019-12-21 10:05 | NUR ---
Initial: Pt admit with intractable N/V with diabetic gastroparesis, current A1c is 7.2. Pt documented as A/O x 2 and confused, nutrition therapy education not appropriate at this time. Patient's A1c is down from 7.9 in February of last year per records. Pt frequency with intractable N/V and N/V was unresponsive to medications on admit per H&P. Home medications include Metoclopramide, Zofran, PhosLo, and insulin. Pt currently on a renal CHO controlled diet documented with 0% PO intake at dinner last night, pending documentation of PO intake for today. Likely N/V will impact patient's PO intake. [facility] 12/20. Will continue to follow closely. Recommendations: 1) Continue renal CHO controlled diet 2) Monitor need for ONS/additional protein to meet the demands of dialysis 3) DM and gastroparesis nutrition therapy education once alert and oriented 4) Bowel care PRN 5) Wt per rx Addendum: 12/21/19 at [address] Amended: Links added.
[2019-12-21] MEDS: LORazepam 2 mg/ml vial IV PRN (11:11)
[2019-12-21] MEDS: potassium CL 10mEq/100ml bag 100 ML IV SCH ×3 (12:12→15:34)
[2019-12-21] MEDS ORDERED: potassium Cl 10 mEq/100mL bag IV ONE (13:00)
[2019-12-21] MEDS ORDERED: potassium Cl 10 mEq/100mL bag IV SCH (13:00)
[2019-12-21] MEDS: insulin Lispro (HumaLOG) vial - multi-dose SQ SCH ×2 (13:32→18:50)
--- NOTE | 2019-12-21 14:37 | NUR ---
Patient ate a few bites of his meal with his phoslo, patient was covered with insulin for his blood glucose only. Will continue to monitor.
--- NOTE | 2019-12-21 18:18 | NUR ---
Patient is attempting to eat dinner, Pt. states, "Im feeling really good right now." Dialysis nurse at bedside. Problems reprioritized. Patient report given, questions answered & plan of care reviewed with Ludmila STOVER.
[2019-12-21] MEDS: insulin glargine (Lantus) pen - multi-dose SQ SCH (21:00)
[2019-12-22] VITALS (14 sets, daily range): BP systolic 63–178; BP diastolic 40–78
[2019-12-22] MEDS: ondansetron 4mg rapidly disintigrating tab PO SCH ×3 (00:55→16:59)
[2019-12-22] MEDS: ondansetron/PF 4mg/2ml inj IV PRN ×3 (01:58→14:41)
[2019-12-22] MEDS: LORazepam 2 mg/ml vial IV PRN (02:50)
--- NOTE | 2019-12-22 03:35 | NUR ---
AFIB RVR RATE 140-150--MD NOTIFIED AND ORDERS RECEIVED
[2019-12-22] MEDS ORDERED: diltiazem 5mg/ml 5ml inj. IV ONE (03:50)
[2019-12-22] MEDS ORDERED: diltiazem-NS 100mg/100ml 100 ML IV SCH (03:50)
[2019-12-22] MEDS ORDERED: albumin (Human) 5% 250ml 250 ML IV ONE (04:20)
[2019-12-22] MEDS ORDERED: amiodarone 150mg/dext, iso-os 100 ML IV ONE (04:20)
[2019-12-22] MEDS ORDERED: AMIODARONE IV SCH (04:20)
[2019-12-22] MEDS ORDERED: NORMAL SALINE IV SCH (04:20)
[2019-12-22] MEDS: amiodarone/D5 360MG/200ML BAG 200 ML IV SCH ×3 (05:49→13:07)
[2019-12-22 06:21] LABS: BASOPHILS % (AUTO) 0.4 % (0-1); EOSINOPHILS % (AUTO) 0.1 % (0-6); HEMATOCRIT 33.4 % (42.0-52.0); HEMOGLOBIN 11.1 g/dl (14.0-17.9); LYMPHOCYTES # (AUTO) 0.9 X10'3 (1.1-4.8); LYMPHOCYTES % (AUTO) 11.9 % (21-51); MEAN CORPUSCULAR HEMOGLOBIN 31.8 PG (27.0-31.0); MEAN CORPUSCULAR HGB CONC 33.3 g/dL (33.0-36.5); MEAN CORPUSCULAR VOLUME 95.4 FL (78-98); MEAN PLATELET VOLUME 7.3 FL (7.4-10.4); MONOCYTES # (AUTO) 0.5 X10'3 (0-0.9); MONOCYTES % (AUTO) 6.4 % (2-12); NEUTROPHILS # (AUTO) 6.2 X10'3 (1.8-7.7); NEUTROPHILS % (AUTO) 81.2 % (42-75); PLATELET COUNT 203 X10'3 (140-440); RED CELL DISTRIBUTION WIDTH 14.6 % (11.5-14.5); WHITE BLOOD COUNT 7.6 X10'3 (4.5-11.0)
--- NOTE | 2019-12-22 06:48 | NUR ---
Patient in room PCU 3026. I have received report from Ludmila STOVER and had the opportunity to ask questions and assume patient care.
[2019-12-22 06:54] LABS: ALANINE AMINOTRANSFERASE 31 U/L (12-78); ALBUMIN 3.8 G/DL (3.4-5.0); ALBUMIN/GLOBULIN RATIO 1.1 (1.1-1.5); ALKALINE PHOSPHATASE 75 IU/L (46-116); ANION GAP 19 (8-16); ASPARTATE AMINO TRANSFERASE 33 U/L (10-37); BILIRUBIN,TOTAL 0.6 MG/DL (0.1-1.0); BLOOD UREA NITROGEN 27 MG/DL (7-18); BUN/CREATININE RATIO 7.2 (5.4-32.0); CALCIUM 9.7 MG/DL (8.5-10.1); CHLORIDE 100 MMOL/L (99-107); CREATININE 3.75 MG/DL (0.60-1.10); GLUCOSE 198 MG/DL (70-104); MAGNESIUM 1.9 MG/DL (1.5-2.4); PHOSPHORUS 2.7 MG/DL (2.3-4.5); POTASSIUM 3.4 MMOL/L (3.5-5.1); SODIUM 141 MMOL/L (135-145); TOTAL CARBON DIOXIDE 22.4 MMOL/L (24-32); TOTAL PROTEIN 7.3 G/DL (6.4-8.2); eGFR 17 ML/MIN
[2019-12-22] MEDS: furosemide 40mg tablet PO SCH (07:51)
[2019-12-22] MEDS: levoTHYROXINE 25mcg tablet PO SCH (07:52)
[2019-12-22] MEDS: levoTHYROXINE 112mcg tablet PO SCH (07:52)
[2019-12-22] MEDS: pantoprazole 40mg Tablet.DR PO SCH (07:52)
[2019-12-22] MEDS: amLODIPine 5mg tablet PO SCH (07:53)
[2019-12-22] MEDS: OMEGA-3/DHA/EPA/FISH OIL 1 EACH CAPSULE.DR PO SCH (07:53)
[2019-12-22] MEDS: linagliptin 5mg tablet PO SCH (07:54)
[2019-12-22] MEDS: atorvastatin 20mg tablet PO SCH (07:54)
[2019-12-22] MEDS: aspirin 81mg tablet.DR PO SCH (07:54)
[2019-12-22] MEDS: lisinopril 20mg tablet PO SCH (07:55)
[2019-12-22] MEDS: calcium acetate 667mg (PhosLO) capsule PO SCH ×3 (07:57→16:59)
[2019-12-22] MEDS: docusate sod 100mg capsule PO SCH ×2 (08:00→20:00)
[2019-12-22] MEDS: insulin Lispro (HumaLOG) vial - multi-dose SQ SCH ×3 (08:33→19:21)
[2019-12-22] MEDS: heparin, porcine 5000 units/ml vial SQ SCH ×2 (09:09→20:00)
[2019-12-22] MEDS: hydrALAZINE 20mg/ml inj. IV PRN (13:07)
--- NOTE | 2019-12-22 15:30 | NUR ---
Received orders from Adis EATON to discontinue Hydralazine 10 mg IV push Q4h PRN and to discontinue Amiodarone drip. Informed of improved potassium level at 3.4 today; Adis states he plans to let this further improve on its own. Made aware of hypertensive episode today of 178/78 and give of Hydralazine 10mg push which brought BP down to 124/74 and Adis ordered to DC hydralazine and let BP stabilize with continued use of home medications Lisinopril, amlodipine, and furosemide. Informed that patient was started on Amiodarone drip for episode of Afib c RVR last night and has now converted back to sinus rhythm; received orders to DC drip. Orders executed. Primary Nurse made aware.
--- NOTE | 2019-12-22 15:39 | NUR ---
Dr. stern also notified about patients persistent nausea and poor PO intake. would like Ativan to be utilized depsite his drowsiness. stated he may also increase his dose of Zofran. PRN hydralazine/amio DC'd per MD's request. Patient is currently in Sinus rhythm. Will continue to monitor patient closely. Incouraged PO intake, pt. agreeable to a Popsicle, declined all other suggestions.
--- NOTE | 2019-12-22 16:07 | NUR ---
Since Amiodarone was discontinued, the patient has bursts of a-fib with RVR, pt. is currently in sinus rhythm. Patient is asymptomatic. stated, "No further orders."
--- NOTE | 2019-12-22 17:00 | NUR ---
Patient has intermittent vomiting, PRN medications given and effective for short periods of time, MD increased Zofran. Phoslo held r/t vomiting/not eating. MD is aware.
--- NOTE | 2019-12-22 18:17 | NUR ---
Patient sitting on edge of bed and surprisingly looks much better from prior assessment. Pt. is currently in sinus rhythm and blood pressure is stable at this time. Problems reprioritized. Patient report given, questions answered & plan of care reviewed with tatyana STOVER.
[2019-12-22] MEDS: insulin glargine (Lantus) pen - multi-dose SQ SCH (21:00)
[2019-12-23] VITALS (11 sets, daily range): BP systolic 82–128; BP diastolic 46–69
[2019-12-23] MEDS: ondansetron 4mg rapidly disintigrating tab PO SCH ×5 (00:48→20:27)
[2019-12-23 05:40] LABS: ALANINE AMINOTRANSFERASE 35 U/L (12-78); ALBUMIN 4.1 G/DL (3.4-5.0); ALBUMIN/GLOBULIN RATIO 1.1 (1.1-1.5); ALKALINE PHOSPHATASE 83 IU/L (46-116); ANION GAP 22 (8-16); ASPARTATE AMINO TRANSFERASE 42 U/L (10-37); BILIRUBIN,TOTAL 0.7 MG/DL (0.1-1.0); BLOOD UREA NITROGEN 45 MG/DL (7-18); CALCIUM 10.4 MG/DL (8.5-10.1); CHLORIDE 96 MMOL/L (99-107); CREATININE 6.47 MG/DL (0.60-1.10); GLUCOSE 197 MG/DL (70-104); MAGNESIUM 2.2 MG/DL (1.5-2.4); PHOSPHORUS 4.3 MG/DL (2.3-4.5); POTASSIUM 3.2 MMOL/L (3.5-5.1); SODIUM 145 MMOL/L (135-145); TOTAL CARBON DIOXIDE 26.7 MMOL/L (24-32); eGFR 9 ML/MIN
--- NOTE | 2019-12-23 05:47 | NUR ---
PT HR UP AGAIN THIS MORNING WITH DECREASE OF SBP--ENCOURAGED PT TO DEEP BREATHE MD IS AWARE OF THIS OCCURRENCE YESTERDAY ON NIGHTS AND DAYS--PER DR. WHITNEY YESTERDAY NO TREATMENT --WLLL BE TAKEN CARE OF WITH DIALYSIS
[2019-12-23 06:24] LABS: BASOPHILS % (AUTO) 0.3 % (0-1); EOSINOPHILS % (AUTO) 0 % (0-6); HEMATOCRIT 37.6 % (42.0-52.0); HEMOGLOBIN 12.6 g/dl (14.0-17.9); LYMPHOCYTES # (AUTO) 1.6 X10'3 (1.1-4.8); LYMPHOCYTES % (AUTO) 11.4 % (21-51); MEAN CORPUSCULAR HEMOGLOBIN 32.1 PG (27.0-31.0); MEAN CORPUSCULAR HGB CONC 33.5 g/dL (33.0-36.5); MEAN CORPUSCULAR VOLUME 95.9 FL (78-98); MEAN PLATELET VOLUME 7.1 FL (7.4-10.4); MONOCYTES % (AUTO) 7.1 % (2-12); NEUTROPHILS % (AUTO) 81.2 % (42-75); PLATELET COUNT 233 X10'3 (140-440); RED BLOOD COUNT 3.92 X10'6 (4.70-6.10); RED CELL DISTRIBUTION WIDTH 14.2 % (11.5-14.5); WHITE BLOOD COUNT 13.6 X10'3 (4.5-11.0)
--- NOTE | 2019-12-23 06:34 | NUR ---
Patient in room PCU 3026. I have received report from JOLANTA Keys and had the opportunity to ask questions and assume patient care.
[2019-12-23] MEDS: calcium acetate 667mg (PhosLO) capsule PO SCH ×3 (07:00→17:00)
[2019-12-23] MEDS: levoTHYROXINE 112mcg tablet PO SCH (07:42)
[2019-12-23] MEDS: levoTHYROXINE 25mcg tablet PO SCH (07:42)
[2019-12-23] MEDS: OMEGA-3/DHA/EPA/FISH OIL 1 EACH CAPSULE.DR PO SCH (07:43)
[2019-12-23] MEDS: atorvastatin 20mg tablet PO SCH (07:43)
[2019-12-23] MEDS: furosemide 40mg tablet PO SCH (07:44)
[2019-12-23] MEDS: linagliptin 5mg tablet PO SCH (07:44)
[2019-12-23] MEDS: docusate sod 100mg capsule PO SCH ×2 (07:44→20:26)
[2019-12-23] MEDS: amLODIPine 5mg tablet PO SCH (07:44)
[2019-12-23] MEDS: pantoprazole 40mg Tablet.DR PO SCH (07:44)
[2019-12-23] MEDS: lisinopril 20mg tablet PO SCH (07:45)
[2019-12-23] MEDS: aspirin 81mg tablet.DR PO SCH (07:45)
[2019-12-23] MEDS: heparin, porcine 5000 units/ml vial SQ SCH ×2 (07:45→20:31)
[2019-12-23] MEDS ORDERED: normal saline 1000ml 250 ML IV PRN (08:00)
[2019-12-23] MEDS ORDERED: LIDOcaine 1% (10mg/ml) 2ml vial SQ ONE (08:00)
[2019-12-23] MEDS ORDERED: heparin 1,000 units/ml 10ml inj IV ONE (08:00)
[2019-12-23] MEDS: insulin Lispro (HumaLOG) vial - multi-dose SQ SCH (09:58)
[2019-12-23] MEDS: ondansetron/PF 4mg/2ml inj IV PRN (10:37)
[2019-12-23] MEDS: metoclopramide 5 mg/ml inj IV SCH ×3 (14:19→20:30)
--- NOTE | 2019-12-23 15:58 | NUR ---
DM/gastroparesis education: Pt currently on zofran however still with intractable N/V. Per MD note, zofran to be changed to IV reglan. RD international account representative visited pt at bedside to provide written and verbal gastroparesis, low fiber, and DM education with referral to CDE course and RD contact information. Pt currently documented with A1c of 7.2. Pt reports A1c was 6.5 two weeks ago, currently on gliperide and januvia and checks BG regularly 4 times a day. Pt reports no appetite d/t intractable vomiting and denies any ONS or food preferences at this time besides grind all and chicken broth, d/w dietary. Pt reports difficulty chewing d/t being edentulous, constipation and denies any prunes/prune juice/power pudding because he will not be able to keep it down. LBM 12/20. Will continue to monitor. Recommendations: 1) Continue renal CHO controlled, advance diet to low residue as medically indicated 2) Monitor need for ONS/additional protein once tolerating PO intake 3) Grind all per pt preference 4) Bowel care PRN; promotility per MD 5) wts w/ HD Addendum: 12/23/19 at 1558 by Wing Sofie PASCAL Amended: Links added. Addendum: 12/23/19 at [address] GWYN Mac
--- NOTE | 2019-12-23 18:31 | NUR ---
Problems reprioritized. Patient report given, questions answered & plan of care reviewed with JOLANTA Grace.
[2019-12-23] MEDS ORDERED: amiodarone 150mg/dext, iso-os 100 ML IV ONE (20:50)
[2019-12-23] MEDS: insulin glargine (Lantus) pen - multi-dose SQ SCH (21:00)
--- NOTE | 2019-12-23 21:30 | NUR ---
Patient converted to Aflutter with RVR with HR in the 150s with bursts as high as the 180s-190s. Patient remained very lethargic and was lying still in bed. Patient's BP was 102/76 and went down to 95/73. Notified hot iron worker coffee weigher SUPERVISOR QUILTING November of current HR and BP and patient's history including that he was on an Amiodarone drip a couple of days ago but it was d/c'd and he was not placed on any PO. New order received to restart patient on Amio drip with bolus. Went in to administer Amiodarone but patient's IV was leaking and very difficult to flush. New IV was initiated and orders carried out.
[2019-12-23] MEDS: amiodarone/D5 360MG/200ML BAG 200 ML IV SCH (21:31)
[2019-12-23] MEDS: LORazepam 2 mg/ml vial IV PRN (22:46)
[2019-12-24] VITALS (17 sets, daily range): BP systolic 81–132; BP diastolic 37–84
[2019-12-24] MEDS: ondansetron 4mg rapidly disintigrating tab PO SCH ×4 (02:18→19:53)
[2019-12-24] MEDS: metoclopramide 5 mg/ml inj IV SCH ×4 (02:19→19:55)
[2019-12-24] MEDS: amiodarone/D5 360MG/200ML BAG 200 ML IV SCH ×4 (03:46→21:03)
--- NOTE | 2019-12-24 05:40 | NUR ---
Student Medication Administration: For this medication-pass time frame, all medication were reviewed, dispensed, administered and documented per hospital policy by eNllie OTTO. Student documentation: I have reviewed and agree with all interventions, assessments performed and documented by Nellie OTTO.
--- NOTE | 2019-12-24 06:09 | NUR ---
Problems reprioritized. Patient report given, questions answered & plan of care reviewed with Genevieve RN.
--- NOTE | 2019-12-24 06:23 | NUR ---
Patient in room PCU 3026. I have received report from JOLANTA Grace and had the opportunity to ask questions and assume patient care.
--- NOTE | 2019-12-24 06:24 | NUR ---
pt HR up to 170's, a fib RVR. amio drip at 0.5mg/min
[2019-12-24 06:31] LABS: ALANINE AMINOTRANSFERASE 36 U/L (12-78); ALBUMIN 4.1 G/DL (3.4-5.0); ALBUMIN/GLOBULIN RATIO 0.9 (1.1-1.5); ALKALINE PHOSPHATASE 95 IU/L (46-116); ANION GAP 18 (8-16); BILIRUBIN,TOTAL 0.8 MG/DL (0.1-1.0); BLOOD UREA NITROGEN 31 MG/DL (7-18); BUN/CREATININE RATIO 5.9 (5.4-32.0); CALCIUM 10.1 MG/DL (8.5-10.1); CHLORIDE 94 MMOL/L (99-107); CREATININE 5.24 MG/DL (0.60-1.10); GLUCOSE 207 MG/DL (70-104); MAGNESIUM 2.1 MG/DL (1.5-2.4); SODIUM 138 MMOL/L (135-145); TOTAL CARBON DIOXIDE 26.2 MMOL/L (24-32); TOTAL PROTEIN 8.5 G/DL (6.4-8.2); eGFR 11 ML/MIN
[2019-12-24 06:32] LABS: ASPARTATE AMINO TRANSFERASE 38 U/L (10-37); PHOSPHORUS 4.8 MG/DL (2.3-4.5)
--- NOTE | 2019-12-24 06:51 | NUR ---
pt converted back to SR.
[2019-12-24] MEDS: linagliptin 5mg tablet PO SCH (07:52)
[2019-12-24] MEDS: OMEGA-3/DHA/EPA/FISH OIL 1 EACH CAPSULE.DR PO SCH (07:52)
[2019-12-24] MEDS: heparin, porcine 5000 units/ml vial SQ SCH ×2 (07:54→19:53)
[2019-12-24] MEDS: atorvastatin 20mg tablet PO SCH (07:54)
[2019-12-24] MEDS: levoTHYROXINE 25mcg tablet PO SCH (07:55)
[2019-12-24] MEDS: levoTHYROXINE 112mcg tablet PO SCH (07:55)
[2019-12-24] MEDS: pantoprazole 40mg Tablet.DR PO SCH (07:55)
[2019-12-24] MEDS: lisinopril 20mg tablet PO SCH (07:55)
[2019-12-24] MEDS: amLODIPine 5mg tablet PO SCH (07:56)
[2019-12-24] MEDS: docusate sod 100mg capsule PO SCH ×2 (07:56→19:53)
[2019-12-24] MEDS: calcium acetate 667mg (PhosLO) capsule PO SCH ×3 (07:56→17:00)
[2019-12-24] MEDS: aspirin 81mg tablet.DR PO SCH (07:56)
[2019-12-24] MEDS: furosemide 40mg tablet PO SCH (07:56)
[2019-12-24] MEDS: insulin Lispro (HumaLOG) vial - multi-dose SQ SCH ×2 (08:07→18:42)
--- NOTE | 2019-12-24 08:30 | NUR ---
pt was feeling well enough to eat breakfast, and had a few bites, then pt took his medications PO. the pt threw everything up approximately 10 minutes after.
[2019-12-24 11:10] LABS: BASOPHILS % (AUTO) 0.2 % (0-1); EOSINOPHILS % (AUTO) 0.1 % (0-6); HEMATOCRIT 37.2 % (42.0-52.0); HEMOGLOBIN 12.4 g/dl (14.0-17.9); LYMPHOCYTES # (AUTO) 1.3 X10'3 (1.1-4.8); LYMPHOCYTES % (AUTO) 11.5 % (21-51); MEAN CORPUSCULAR HEMOGLOBIN 31.4 PG (27.0-31.0); MEAN CORPUSCULAR HGB CONC 33.3 g/dL (33.0-36.5); MEAN CORPUSCULAR VOLUME 94.1 FL (78-98); MONOCYTES # (AUTO) 1.1 X10'3 (0-0.9); MONOCYTES % (AUTO) 9.6 % (2-12); NEUTROPHILS # (AUTO) 9.2 X10'3 (1.8-7.7); NEUTROPHILS % (AUTO) 78.6 % (42-75); PLATELET COUNT 243 X10'3 (140-440); RED BLOOD COUNT 3.95 X10'6 (4.70-6.10); RED CELL DISTRIBUTION WIDTH 14.3 % (11.5-14.5); WHITE BLOOD COUNT 11.7 X10'3 (4.5-11.0)
--- NOTE | 2019-12-24 11:29 | NUR ---
Malnutrition consult: Patient's current stated wt is stable with scaled wt hx. Pt continues with 0% PO intake on renal CHO controlled diet secondary to N/V, now day 3 with poor PO intake not meeting nutrient needs. Pt with no significant decrease in muscle strength or edema. Pt with no visible fat or muscle wasting. Pt currently lacks a minimum of two criteria for malnutrition. Will continue to follow closely. Addendum: 12/24/19 at [address] Amended: Links added.
--- NOTE | 2019-12-24 11:50 | NUR ---
pt converting in and out of a fib 4 times within approximately 3 minutes. pt received amio PO this AM as well as his continuous drip, which was ordered and applied last night. the pt is still vomiting profusely, without much - if any - intake.
--- NOTE | 2019-12-24 13:01 | NUR ---
Dr Arceo is aware of the pt's condition.
--- NOTE | 2019-12-24 14:18 | NUR ---
Rounded with Dr Arceo. Recommended CT to check for blockage r/t the pt's n/v, however, Dr Arceo does not think it is necessary. He also states to leave the pt on amio drip.
--- NOTE | 2019-12-24 18:09 | NUR ---
Problems reprioritized. Patient report given, questions answered & plan of care reviewed with JOLANTA Grace.
[2019-12-24] MEDS: insulin glargine (Lantus) pen - multi-dose SQ SCH (21:00)
[2019-12-24] MEDS ORDERED: furosemide 20 MG/2 ML vial IV ONE (22:30)
[2019-12-24] MEDS: LORazepam 2 mg/ml vial IV PRN (23:17)
[2019-12-25] VITALS (9 sets, daily range): BP systolic 56–145; BP diastolic 23–82
[2019-12-25] MEDS ORDERED: normal saline 250ml IV soln 250 ML IV ONE (00:45)
[2019-12-25] MEDS ORDERED: LORazepam 2 mg/ml vial IV PRN (01:00)
--- NOTE | 2019-12-25 01:03 | NUR ---
Contacted gift consultant test deck supervisor GROUP EXERCISE CLASS INSTRUCTOR November/ patient's sudden drop in BP to 56/23 that was confirmed with manual BP. Received order to give 250mL bolus and then recheck BP. GROUP EXERCISE CLASS INSTRUCTOR came to bedside and gave order to pause Amiodarone for now but to restart it if patient sustains Afib/flutter with RVR for long period. Remeasured BP with GROUP EXERCISE CLASS INSTRUCTOR at bedside and BP is now 102/68
[2019-12-25] MEDS: ondansetron 4mg rapidly disintigrating tab PO SCH ×5 (02:00→21:20)
[2019-12-25] MEDS: metoclopramide 5 mg/ml inj IV SCH ×5 (02:00→21:20)
[2019-12-25] MEDS: amiodarone/D5 360MG/200ML BAG 200 ML IV SCH ×3 (02:13→15:15)
--- NOTE | 2019-12-25 04:50 | NUR ---
Spoke with TANNER Solis regarding the patient's HR sustaining going in and out of afib/flutter with his HR being as high as 170s. She gave order that if SBP was 90s then to resume the Amio drip
--- NOTE | 2019-12-25 06:02 | NUR ---
Problems reprioritized. Patient report given, questions answered & plan of care reviewed with Genevieve RN.
--- NOTE | 2019-12-25 06:03 | NUR ---
Student Medication Administration: For this medication-pass time frame, all medication were reviewed, dispensed, administered and documented per hospital policy by Nellie OTTO. Student documentation: I have reviewed and agree with all interventions, assessments performed and documented by Nellie OTTO.
--- NOTE | 2019-12-25 06:26 | NUR ---
Patient in room PCU 3026. I have received report from JOLANTA Grace and had the opportunity to ask questions and assume patient care.
[2019-12-25] MEDS ORDERED: normal saline 500ml IV soln 500 ML IV ONE (06:35)
--- NOTE | 2019-12-25 06:42 | NUR ---
pt's BP 64/35 (41). November, aware. Orders for 250cc bolus with a rebolus of 250cc if no improvement. Addendum: 12/25/19 at 0645 by Genevieve rOtiz RN HR of 161.
[2019-12-25] MEDS: calcium acetate 667mg (PhosLO) capsule PO SCH ×3 (07:00→17:19)
--- NOTE | 2019-12-25 07:00 | NUR ---
IV infiltrated. new IV placed by Phong PICC RN, with a longer catheter via US. Brachial vein clotted off per PICC RN. BP cuff moved to R thigh for popliteal BP, per PICC RN to help prevent damage to new IV.
[2019-12-25 07:07] LABS: BASOPHILS % (AUTO) 0.2 % (0-1); EOSINOPHILS % (AUTO) 0.2 % (0-6); HEMATOCRIT 37.8 % (42.0-52.0); HEMOGLOBIN 12.5 g/dl (14.0-17.9); LYMPHOCYTES # (AUTO) 0.6 X10'3 (1.1-4.8); LYMPHOCYTES % (AUTO) 5.5 % (21-51); MEAN CORPUSCULAR HEMOGLOBIN 31.1 PG (27.0-31.0); MEAN CORPUSCULAR HGB CONC 33.2 g/dL (33.0-36.5); MEAN CORPUSCULAR VOLUME 93.9 FL (78-98); MEAN PLATELET VOLUME 7.1 FL (7.4-10.4); MONOCYTES % (AUTO) 8.3 % (2-12); NEUTROPHILS # (AUTO) 9.9 X10'3 (1.8-7.7); NEUTROPHILS % (AUTO) 85.8 % (42-75); PLATELET COUNT 206 X10'3 (140-440); RED BLOOD COUNT 4.02 X10'6 (4.70-6.10); RED CELL DISTRIBUTION WIDTH 14.2 % (11.5-14.5); WHITE BLOOD COUNT 11.5 X10'3 (4.5-11.0)
[2019-12-25 07:16] LABS: ALANINE AMINOTRANSFERASE 27 U/L (12-78); ALBUMIN/GLOBULIN RATIO 0.8 (1.1-1.5); ALKALINE PHOSPHATASE 76 IU/L (46-116); ANION GAP 14 (8-16); ASPARTATE AMINO TRANSFERASE 23 U/L (10-37); BILIRUBIN,TOTAL 0.5 MG/DL (0.1-1.0); CALCIUM 9.6 MG/DL (8.5-10.1); CHLORIDE 92 MMOL/L (99-107); GLUCOSE 152 MG/DL (70-104); MAGNESIUM 1.8 MG/DL (1.5-2.4); PHOSPHORUS 4.3 MG/DL (2.3-4.5); POTASSIUM 3.8 MMOL/L (3.5-5.1); SODIUM 134 MMOL/L (135-145); TOTAL CARBON DIOXIDE 27.6 MMOL/L (24-32); TOTAL PROTEIN 6.6 G/DL (6.4-8.2)
[2019-12-25 07:23] LABS: BLOOD UREA NITROGEN 55 MG/DL (7-18); CREATININE 7.89 MG/DL (0.60-1.10); eGFR 7 ML/MIN
--- NOTE | 2019-12-25 07:42 | NUR ---
F/U BP 84/41 (49). Second 250cc bolus given. IV infiltrated. PICC nurse placed a 20g with a longer catheter (not an extended PIV). Brachial vein clotted off per PICC nurse. Pt is arousable, but obtunded.
[2019-12-25] MEDS: levoTHYROXINE 112mcg tablet PO SCH (07:59)
[2019-12-25] MEDS: levoTHYROXINE 25mcg tablet PO SCH (07:59)
[2019-12-25] MEDS: amLODIPine 5mg tablet PO SCH (08:00)
[2019-12-25] MEDS: OMEGA-3/DHA/EPA/FISH OIL 1 EACH CAPSULE.DR PO SCH (08:00)
[2019-12-25] MEDS: docusate sod 100mg capsule PO SCH ×2 (08:00→21:19)
[2019-12-25] MEDS: atorvastatin 20mg tablet PO SCH (08:00)
[2019-12-25] MEDS: pantoprazole 40mg Tablet.DR PO SCH (08:00)
[2019-12-25] MEDS: furosemide 40mg tablet PO SCH (08:00)
[2019-12-25] MEDS: aspirin 81mg tablet.DR PO SCH (08:00)
[2019-12-25] MEDS: lisinopril 20mg tablet PO SCH (08:00)
[2019-12-25] MEDS: linagliptin 5mg tablet PO SCH (08:00)
[2019-12-25] MEDS: heparin, porcine 5000 units/ml vial SQ SCH ×2 (08:02→21:21)
--- NOTE | 2019-12-25 08:12 | NUR ---
pt BP 97/44 (55), HR 89 in a fib. Per DONIS Welch, continue amio drip at 0.5mg and d/c all ativan orders.
[2019-12-25 08:20] LABS: ANISOCYTOSIS 1+; PLATELET ESTIMATE NORMAL; TOTAL CELLS COUNTED 100
--- NOTE | 2019-12-25 09:22 | NUR ---
pt's BP decreased. manual BP of 68/40 and popliteal BP of 69/54 on monitor. The pt is lethargic, but arousable to voice. Did not stir when getting poked by lab or for IV, nor when his limbs are being manipulated. DONIS Welch aware.
[2019-12-25] MEDS ORDERED: normal saline 1000ml 250 ML IV PRN (09:42)
[2019-12-25] MEDS ORDERED: heparin 1,000 units/ml 10ml inj IV ONE (09:45)
[2019-12-25] MEDS ORDERED: LIDOcaine 1% (10mg/ml) 2ml vial SQ ONE (09:45)
[2019-12-25] MEDS ORDERED: normal saline 1000ml 1,000 ML IV ONE (10:15)
--- NOTE | 2019-12-25 10:15 | NUR ---
500 cc bolus given per Cynthia Sheltno.
--- NOTE | 2019-12-25 13:37 | NUR ---
Problems reprioritized. Patient report given, questions answered & plan of care reviewed with JOLANTA Monson.
--- NOTE | 2019-12-25 13:38 | NUR ---
Patient in room PCU 3026. I have received report from JOLANTA Vallejo and had the opportunity to ask questions and assume patient care.
[2019-12-25] MEDS: amiodarone 200mg tablet PO SCH (17:19)
--- NOTE | 2019-12-25 18:17 | NUR ---
Problems reprioritized. Patient report given, questions answered & plan of care reviewed with JOLANTA Keys.
[2019-12-25] MEDS: insulin Lispro (HumaLOG) vial - multi-dose SQ SCH (19:18)
[2019-12-25] MEDS: insulin glargine (Lantus) pen - multi-dose SQ SCH (21:00)
[2019-12-26] MEDS: ondansetron 4mg rapidly disintigrating tab PO SCH ×4 (02:00→20:00)
[2019-12-26] MEDS: metoclopramide 5 mg/ml inj IV SCH ×4 (02:00→20:00)
[2019-12-26 03:00] VITALS: BP 86/54
--- NOTE | 2019-12-26 06:28 | NUR ---
Patient in room PCU 3028D. I have received report from Ludmila STOVER and had the opportunity to ask questions and assume patient care.
[2019-12-26 06:30] VITALS: BP 98/52
[2019-12-26] MEDS: calcium acetate 667mg (PhosLO) capsule PO SCH ×3 (07:41→17:11)
[2019-12-26] MEDS: aspirin 81mg tablet.DR PO SCH (07:45)
[2019-12-26] MEDS: linagliptin 5mg tablet PO SCH (07:45)
[2019-12-26] MEDS: atorvastatin 20mg tablet PO SCH (07:46)
[2019-12-26] MEDS: OMEGA-3/DHA/EPA/FISH OIL 1 EACH CAPSULE.DR PO SCH (07:46)
[2019-12-26] MEDS: heparin, porcine 5000 units/ml vial SQ SCH ×3 (07:47→21:56)
[2019-12-26] MEDS: docusate sod 100mg capsule PO SCH ×2 (07:48→21:57)
[2019-12-26] MEDS: levoTHYROXINE 25mcg tablet PO SCH (07:48)
[2019-12-26] MEDS: pantoprazole 40mg Tablet.DR PO SCH (07:48)
[2019-12-26] MEDS: levoTHYROXINE 112mcg tablet PO SCH (07:51)
[2019-12-26] MEDS: furosemide 40mg tablet PO SCH (07:56)
[2019-12-26] MEDS: lisinopril 20mg tablet PO SCH (07:57)
[2019-12-26] MEDS ORDERED: amLODIPine 5mg tablet PO SCH (08:00)
[2019-12-26 09:09] LABS: BASOPHILS % (AUTO) 0.3 % (0-1); EOSINOPHILS # (AUTO) 0.1 X10'3 (0-0.9); EOSINOPHILS % (AUTO) 0.9 % (0-6); HEMATOCRIT 34.8 % (42.0-52.0); HEMOGLOBIN 11.6 g/dl (14.0-17.9); LYMPHOCYTES # (AUTO) 0.8 X10'3 (1.1-4.8); LYMPHOCYTES % (AUTO) 10.2 % (21-51); MEAN CORPUSCULAR HEMOGLOBIN 31.7 PG (27.0-31.0); MEAN CORPUSCULAR HGB CONC 33.4 g/dL (33.0-36.5); MEAN CORPUSCULAR VOLUME 94.8 FL (78-98); MEAN PLATELET VOLUME 7.5 FL (7.4-10.4); MONOCYTES # (AUTO) 0.6 X10'3 (0-0.9); MONOCYTES % (AUTO) 7.8 % (2-12); NEUTROPHILS % (AUTO) 80.8 % (42-75); PLATELET COUNT 193 X10'3 (140-440); RED BLOOD COUNT 3.67 X10'6 (4.70-6.10); RED CELL DISTRIBUTION WIDTH 14.5 % (11.5-14.5); WHITE BLOOD COUNT 7.4 X10'3 (4.5-11.0)
[2019-12-26] MEDS: insulin Lispro (HumaLOG) vial - multi-dose SQ SCH (09:09)
[2019-12-26] MEDS: amiodarone 200mg tablet PO SCH ×3 (09:09→21:58)
[2019-12-26 09:21] LABS: ALANINE AMINOTRANSFERASE 29 U/L (12-78); ALBUMIN/GLOBULIN RATIO 0.8 (1.1-1.5); ALKALINE PHOSPHATASE 73 IU/L (46-116); ANION GAP 10 (8-16); ASPARTATE AMINO TRANSFERASE 32 U/L (10-37); BILIRUBIN,TOTAL 0.6 MG/DL (0.1-1.0); BLOOD UREA NITROGEN 28 MG/DL (7-18); BUN/CREATININE RATIO 4.8 (5.4-32.0); CALCIUM 9.7 MG/DL (8.5-10.1); CHLORIDE 95 MMOL/L (99-107); CREATININE 5.79 MG/DL (0.60-1.10); GLUCOSE 149 MG/DL (70-104); SODIUM 133 MMOL/L (135-145); TOTAL CARBON DIOXIDE 27.9 MMOL/L (24-32); TOTAL PROTEIN 6.9 G/DL (6.4-8.2); eGFR 10 ML/MIN
--- NOTE | 2019-12-26 10:37 | NUR ---
Spoke to Cynthia Shelton, she is aware that patient is in sinus rhythm to sinus tach, with occasional HR in 130's-140's
[2019-12-26 11:00] VITALS: BP 108/63
--- NOTE | 2019-12-26 13:08 | NUR ---
Dr Arceo placed new order to switch frequency of Amio 200 mg from daily to BID. Clicked "nonadmin" on 1255 dose after speaking to MD because pt already received AM dose, next dose will be at 2000
--- NOTE | 2019-12-26 14:35 | NUR ---
Non-admin'd heparin and xylocaine from 12/25 that was for dialysis; dialysis was done on 12/25 and needed to be cleared from [facility]
[2019-12-26 15:00] VITALS: BP 109/74
--- NOTE | 2019-12-26 18:22 | NUR ---
Problems reprioritized. Patient report given, questions answered & plan of care reviewed with Jered STOVER. Addendum: 12/26/19 at 1824 by Vidya Koch RN INCORRECT NURSE. IGNORE NOTE
--- NOTE | 2019-12-26 18:24 | NUR ---
Problems reprioritized. Patient report given, questions answered & plan of care reviewed with Ludmila STOVER.
[2019-12-26 19:00] VITALS: BP 90/57
[2019-12-26] MEDS: insulin glargine (Lantus) pen - multi-dose SQ SCH (21:00)
[2019-12-26 23:00] VITALS: BP 108/55
[2019-12-27] VITALS (8 sets, daily range): BP systolic 89–140; BP diastolic 56–101
[2019-12-27] MEDS: metoclopramide 5 mg/ml inj IV SCH ×2 (02:00→08:13)
[2019-12-27] MEDS: ondansetron 4mg rapidly disintigrating tab PO SCH ×4 (02:00→20:00)
--- NOTE | 2019-12-27 06:32 | NUR ---
Patient in room PCU 3022W. I have received report from Ludmila STOVER and had the opportunity to ask questions and assume patient care.
[2019-12-27 07:19] LABS: BASOPHILS % (AUTO) 0.4 % (0-1); EOSINOPHILS # (AUTO) 0.1 X10'3 (0-0.9); EOSINOPHILS % (AUTO) 0.9 % (0-6); HEMATOCRIT 32.1 % (42.0-52.0); HEMOGLOBIN 10.8 g/dl (14.0-17.9); LYMPHOCYTES # (AUTO) 0.9 X10'3 (1.1-4.8); LYMPHOCYTES % (AUTO) 11.4 % (21-51); MEAN CORPUSCULAR HEMOGLOBIN 31.8 PG (27.0-31.0); MEAN CORPUSCULAR HGB CONC 33.7 g/dL (33.0-36.5); MEAN CORPUSCULAR VOLUME 94.2 FL (78-98); MEAN PLATELET VOLUME 7.6 FL (7.4-10.4); MONOCYTES # (AUTO) 0.8 X10'3 (0-0.9); MONOCYTES % (AUTO) 10.3 % (2-12); NEUTROPHILS # (AUTO) 6.3 X10'3 (1.8-7.7); PLATELET COUNT 190 X10'3 (140-440); RED BLOOD COUNT 3.41 X10'6 (4.70-6.10); RED CELL DISTRIBUTION WIDTH 14.2 % (11.5-14.5); WHITE BLOOD COUNT 8.2 X10'3 (4.5-11.0)
[2019-12-27 07:30] LABS: ALANINE AMINOTRANSFERASE 30 U/L (12-78); ALBUMIN 2.7 G/DL (3.4-5.0); ALBUMIN/GLOBULIN RATIO 0.8 (1.1-1.5); ALKALINE PHOSPHATASE 70 IU/L (46-116); ANION GAP 8 (8-16); ASPARTATE AMINO TRANSFERASE 35 U/L (10-37); BILIRUBIN,TOTAL 0.5 MG/DL (0.1-1.0); BLOOD UREA NITROGEN 45 MG/DL (7-18); CALCIUM 9.1 MG/DL (8.5-10.1); CHLORIDE 95 MMOL/L (99-107); CREATININE 7.49 MG/DL (0.60-1.10); GLUCOSE 129 MG/DL (70-104); POTASSIUM 3.9 MMOL/L (3.5-5.1); SODIUM 130 MMOL/L (135-145); TOTAL CARBON DIOXIDE 26.7 MMOL/L (24-32); TOTAL PROTEIN 6.1 G/DL (6.4-8.2); eGFR 8 ML/MIN
[2019-12-27] MEDS: furosemide 40mg tablet PO SCH (08:00)
[2019-12-27] MEDS: aspirin 81mg tablet.DR PO SCH (08:10)
[2019-12-27] MEDS: linagliptin 5mg tablet PO SCH (08:10)
[2019-12-27] MEDS: atorvastatin 20mg tablet PO SCH (08:10)
[2019-12-27] MEDS: calcium acetate 667mg (PhosLO) capsule PO SCH ×3 (08:11→17:09)
[2019-12-27] MEDS: docusate sod 100mg capsule PO SCH ×2 (08:11→20:08)
[2019-12-27] MEDS: amiodarone 200mg tablet PO SCH ×2 (08:11→20:08)
[2019-12-27] MEDS: levoTHYROXINE 112mcg tablet PO SCH (08:11)
[2019-12-27] MEDS: levoTHYROXINE 25mcg tablet PO SCH (08:11)
[2019-12-27] MEDS: pantoprazole 40mg Tablet.DR PO SCH (08:12)
[2019-12-27] MEDS: OMEGA-3/DHA/EPA/FISH OIL 1 EACH CAPSULE.DR PO SCH (08:12)
[2019-12-27] MEDS: heparin, porcine 5000 units/ml vial SQ SCH ×2 (08:13→20:08)
[2019-12-27] MEDS ORDERED: normal saline 1000ml 250 ML IV PRN (09:54)
[2019-12-27] MEDS ORDERED: metoclopramide 10mg tablet PO PRN (09:55)
[2019-12-27] MEDS ORDERED: heparin 1,000 units/ml 10ml inj IV ONE (09:55)
[2019-12-27] MEDS ORDERED: heparin 1,000 units/ml 10ml inj HE ONE (10:00)
--- NOTE | 2019-12-27 10:50 | NUR ---
Spoke to Dr Schaeffer when he rounded on floor, and he placed orders for patient to be up ambulating 3-4 times/day and he is aware that patient continues to go in and out of afib/flutter- no new orders.
[2019-12-27] MEDS: insulin Lispro (HumaLOG) vial - multi-dose SQ SCH ×2 (13:50→18:45)
--- NOTE | 2019-12-27 15:24 | NUR ---
Manual BP 78/62. Patient asymptomatic. Called Dr Schaeffer for any new orders, did not crop picker Addendum: 12/27/19 at 1534 by Vidya Koch RN placed patient in Trendelenburg position, BP increased to 96/60. Will continue to monitor closely and speak to MD when he returns call
--- NOTE | 2019-12-27 18:29 | NUR ---
Problems reprioritized. Patient report given, questions answered & plan of care reviewed with Ludmila STOVER. Addendum: 12/27/19 at 1830 by Vidya Koch RN INCORRECT NURSE
--- NOTE | 2019-12-27 18:30 | NUR ---
Problems reprioritized. Patient report given, questions answered & plan of care reviewed with Caitlin STOVER.
--- NOTE | 2019-12-27 18:31 | NUR ---
Patient in room PCU 3026. I have received report from JOLANTA Dasilva and had the opportunity to ask questions and assume patient care. Patient just finished dinner and is laying comfortably on hospital bed. He is A&Ox3 and PERDUE
[2019-12-27] MEDS: insulin glargine (Lantus) pen - multi-dose SQ SCH (21:06)
[2019-12-28] MEDS: ondansetron 4mg rapidly disintigrating tab PO SCH ×5 (02:00→20:00)
--- NOTE | 2019-12-28 02:44 | NUR ---
Problems reprioritized. Patient report given, questions answered & plan of care reviewed with JOLANTA Choudhury.
--- NOTE | 2019-12-28 03:50 | NUR ---
Patient in room PCU 3026. I have received report from Caitlin STOVER and had the opportunity to ask questions and assume patient care.
--- NOTE | 2019-12-28 06:14 | NUR ---
Problems reprioritized. Patient report given, questions answered & plan of care reviewed with Heydi olea.
--- NOTE | 2019-12-28 06:19 | NUR ---
Patient in room PCU 3026. I have received report from Macey STOVER and had the opportunity to ask questions and assume patient care.
[2019-12-28 07:00] VITALS: BP 72/50
[2019-12-28] MEDS: heparin, porcine 5000 units/ml vial SQ SCH ×2 (07:34→20:31)
[2019-12-28] MEDS: pantoprazole 40mg Tablet.DR PO SCH (07:34)
[2019-12-28] MEDS: levoTHYROXINE 25mcg tablet PO SCH (07:34)
[2019-12-28] MEDS: OMEGA-3/DHA/EPA/FISH OIL 1 EACH CAPSULE.DR PO SCH (07:34)
[2019-12-28] MEDS: aspirin 81mg tablet.DR PO SCH (07:35)
[2019-12-28] MEDS: docusate sod 100mg capsule PO SCH ×2 (07:35→20:29)
[2019-12-28] MEDS: levoTHYROXINE 112mcg tablet PO SCH (07:35)
[2019-12-28] MEDS: furosemide 40mg tablet PO SCH (07:35)
[2019-12-28] MEDS: atorvastatin 20mg tablet PO SCH (07:35)
[2019-12-28] MEDS: amiodarone 200mg tablet PO SCH ×2 (07:35→20:29)
[2019-12-28] MEDS: linagliptin 5mg tablet PO SCH (07:35)
[2019-12-28] MEDS: calcium acetate 667mg (PhosLO) capsule PO SCH ×3 (07:35→19:02)
[2019-12-28 11:00] VITALS: BP 107/56
--- NOTE | 2019-12-28 11:03 | NUR ---
Patient did not qualify to receive insulin after breakfast per protocol. He ate 5 carbs and his blood glucose is 116. Will continue to monitor.
[2019-12-28] MEDS ORDERED: AMIO200T61 PO (14:56)
[2019-12-28 15:00] VITALS: BP 109/58
--- NOTE | 2019-12-28 15:27 | NUR ---
Patient did not qualify to receive insulin after breakfast per protocol. He ate 6 carbs and his blood glucose is 110. Will continue to monitor. Addendum: 12/28/19 at 1527 by Bree Hardy RN *after lunch
[2019-12-28] MEDS ORDERED: heparin 1,000 units/ml 10ml inj IV ONE (16:00)
[2019-12-28] MEDS ORDERED: heparin 1,000 units/ml 10ml inj HE ONE ×2 (16:05)
--- NOTE | 2019-12-28 18:10 | NUR ---
Problems reprioritized. Patient report given, questions answered & plan of care reviewed with Macey STOVER.
[2019-12-28 19:00] VITALS: BP 112/63
[2019-12-28] MEDS: insulin glargine (Lantus) pen - multi-dose SQ SCH (21:31)
[2019-12-28 23:15] VITALS: BP 119/54
[2019-12-29] MEDS ORDERED: famotidine 20mg tablet PO ONE (01:00)
[2019-12-29] MEDS: ondansetron 4mg rapidly disintigrating tab PO SCH ×2 (02:00→08:00)
[2019-12-29 03:00] VITALS: BP 90/56
--- NOTE | 2019-12-29 06:06 | NUR ---
pt has rested through the night, up in wheelchair for a while
--- NOTE | 2019-12-29 06:06 | NUR ---
Problems reprioritized. Patient report given, questions answered & plan of care reviewed with Bree STOVER.
--- NOTE | 2019-12-29 06:13 | NUR ---
Patient in room PCU 3026. I have received report from Macey STOVER and had the opportunity to ask questions and assume patient care.
[2019-12-29 07:00] VITALS: BP 100/51
[2019-12-29] MEDS: calcium acetate 667mg (PhosLO) capsule PO SCH (07:59)
[2019-12-29] MEDS: amiodarone 200mg tablet PO SCH (08:45)
[2019-12-29] MEDS: levoTHYROXINE 112mcg tablet PO SCH (08:45)
[2019-12-29] MEDS: levoTHYROXINE 25mcg tablet PO SCH (08:45)
[2019-12-29] MEDS: atorvastatin 20mg tablet PO SCH (08:45)
[2019-12-29] MEDS: pantoprazole 40mg Tablet.DR PO SCH (08:45)
[2019-12-29] MEDS: furosemide 40mg tablet PO SCH (08:45)
[2019-12-29] MEDS: docusate sod 100mg capsule PO SCH (08:45)
[2019-12-29] MEDS: linagliptin 5mg tablet PO SCH (08:45)
[2019-12-29] MEDS: aspirin 81mg tablet.DR PO SCH (08:45)
[2019-12-29] MEDS: heparin, porcine 5000 units/ml vial SQ SCH (08:46)
[2019-12-29] MEDS: OMEGA-3/DHA/EPA/FISH OIL 1 EACH CAPSULE.DR PO SCH (08:47)
--- NOTE | 2019-12-29 09:27 | NUR ---
Patient stable for discharge per MD order. All discharge information and education reviewed with patient before signing necessary paperwork, including new prescription information. All patient belongings packed up and sent with patient, bedside monitor removed, IV removed with catheter in tact. Patient wheeled down to lobby, driven by friend in private vehicle. New prescription called in to [facility] [address].
== END 2019-12-29 09:09 | disposition home or self-care (01) | DRG 73 ==
LOC: ER 08:08 → ED HOLD 14:11 → PCU 3S 15:43
PROVIDERS: ADMIT Internal Medicine Critical Care Medicine; ATTEND Internal Medicine Critical Care Medicine
PROC: 5A1D70Z Performance of Urinary Filtration, Intermittent, Less than 6 Hours Per Day (ICD-10-PCS; principal; 2019-12-21)
PROC: 5A1D70Z Performance of Urinary Filtration, Intermittent, Less than 6 Hours Per Day (ICD-10-PCS; 2019-12-23)
PROC: 5A1D70Z Performance of Urinary Filtration, Intermittent, Less than 6 Hours Per Day (ICD-10-PCS; 2019-12-25)
PROC: 5A1D70Z Performance of Urinary Filtration, Intermittent, Less than 6 Hours Per Day (ICD-10-PCS; 2019-12-28)
DX: E11.43 Type 2 diabetes mellitus with diabetic autonomic (poly)neuropathy (principal); N18.6 End stage renal disease; I13.2 Hypertensive heart and chronic kidney disease with heart failure and with stage 5 chronic kidney disease, or end stage renal disease; K31.84 Gastroparesis; I50.9 Heart failure, unspecified; E11.65 Type 2 diabetes mellitus with hyperglycemia; E11.22 Type 2 diabetes mellitus with diabetic chronic kidney disease; E03.9 Hypothyroidism, unspecified; E11.42 Type 2 diabetes mellitus with diabetic polyneuropathy; E78.00 Pure hypercholesterolemia, unspecified; G89.4 Chronic pain syndrome; I48.0 Paroxysmal atrial fibrillation; Z82.3 Family history of stroke; Z79.899 Other long term (current) drug therapy; Z99.2 Dependence on renal dialysis; Z82.49 Family history of ischemic heart disease and other diseases of the circulatory system; Z83.3 Family history of diabetes mellitus; Z86.73 Personal history of transient ischemic attack (TIA), and cerebral infarction without residual deficits; Z79.84 Long term (current) use of oral hypoglycemic drugs
CPT/HCPCS: 36415; 74018; 76937; 80053; 82948; 83036; 83735; 84100; 84443; 85025; 87081; 93005; 97110; 97116; 97161; 97530; 99285; G0257; G0378; J0360; J1630; J1644; J1815; J2060; J2405; J2765; J3480; J7030; J7040; J7050; J8597; P9045

== ENCOUNTER 2020-06-26 06:35 | Day surgery (SDC) | payer MEDICARE, MEDICAID ==
[~2020-06-26] VITALS: Ht 167.6 cm; Wt 74.9 kg
[2020-06-26] VITALS (7 sets, daily range): BP systolic 112–162; BP diastolic 63–84
[~2020-06-26 06:35] MED LIST changes: +AMA1T PO; +AMLO10TA13 PO; +APIX2.5T PO; -ASPI81TA47 PO; +FOLI0.8T22 PO; -LEVO125T PO; +LEVO137T24 PO; +METO-543 PO; -METO5TAB98 PO; -NOR5T PO; -ONDA4TAB6 PO; +ROSU40TA PO; -ROSU40TA22 PO; -[UNRECOGNIZED DRUG - CODE] PO
[2020-06-26] MEDS ORDERED: normal saline 1000ml 1,000 ML IV SCH (07:00)
[2020-06-26] MEDS ORDERED: fish oil PO (07:18)
[2020-06-26] MEDS ORDERED: ASPI-1053 PO (07:18)
[2020-06-26] MEDS ORDERED: LIDOcaine 1%/PF 5ML 10 MG/ML VIAL ONE (08:23)
[2020-06-26] MEDS ORDERED: midazolam 2 mg/2 ml injection ONE (08:23)
[2020-06-26] MEDS ORDERED: iohexol 300mg/ml 100ml inj. ONE (08:24)
[2020-06-26] MEDS ORDERED: fentaNYL/PF 50MCG/1 ML 2ML syringe ONE (08:24)
[2020-06-26] MEDS ORDERED: heparin 1,000 UNITS/NS 500ml 500 ML ONE (08:24)
[2020-06-26] MEDS ORDERED: ondansetron/PF 4mg/2ml inj ONE (09:27)
== END 2020-06-26 10:50 | disposition home or self-care (01) ==
LOC: SSTAY O 06:35
PROVIDERS: ATTEND Radiology Vascular & Interventional Radiology
DX: T82.858A Stenosis of other vascular prosthetic devices, implants and grafts, initial encounter (principal); Y83.8 Other surgical procedures as the cause of abnormal reaction of the patient, or of later complication, without mention of misadventure at the time of the procedure; I12.0 Hypertensive chronic kidney disease with stage 5 chronic kidney disease or end stage renal disease; E11.22 Type 2 diabetes mellitus with diabetic chronic kidney disease; E11.42 Type 2 diabetes mellitus with diabetic polyneuropathy; N18.6 End stage renal disease; I13.0 Hypertensive heart and chronic kidney disease with heart failure and stage 1 through stage 4 chronic kidney disease, or unspecified chronic kidney disease; E78.00 Pure hypercholesterolemia, unspecified; K21.9 Gastro-esophageal reflux disease without esophagitis; G89.29 Other chronic pain; E03.9 Hypothyroidism, unspecified; I48.0 Paroxysmal atrial fibrillation; Z90.49 Acquired absence of other specified parts of digestive tract; Z98.890 Other specified postprocedural states; Z79.899 Other long term (current) drug therapy; Z82.49 Family history of ischemic heart disease and other diseases of the circulatory system; Z82.3 Family history of stroke
CPT/HCPCS: 36902; 76937; 99152; 99153; C1725; C1769; C1894; J1644; J2250; J2405; J3010; J7030; Q9967

== ENCOUNTER 2020-07-21 17:20 | Emergency (ER) | payer MEDICARE, MEDICAID ==
[~2020-07-21] VITALS: Ht 165.1 cm; Wt 72.7 kg
[~2020-07-21 17:20] MED LIST changes: +ASPI-1053 PO; -FISH12002 PO; +fish oil PO
[2020-07-21] MEDS ORDERED: metoclopramide 5 mg/ml inj IV ONE (18:15)
[2020-07-21] MEDS ORDERED: LORazepam 2 mg/ml vial IV ONE (18:30)
[2020-07-21] MEDS ORDERED: normal saline 1000ML IV soln IVB ONE (18:30)
[2020-07-21 19:11] LABS: CLARITY,URINE CLEAR (Clear); COLOR,URINE YELLOW (Yellow); GLUCOSE, URINE >=1000 mg/dl (Neg); KETONES,URINE NEGATIVE (Neg); LEUKOCYTE ESTERASE ,URINE NEGATIVE (Neg); NITRITES, URINE NEGATIVE (Neg); OCCULT BLOOD,URINE MODERATE (Neg); PROTEIN,URINE 100 mg/dl (Neg); UROBILINOGEN,URINE 0.2 E.U/dL (0.2-1.0)
[2020-07-21 19:22] LABS: UA COLLECTION TYPE CLN CATCH MIDSTREAM
[2020-07-21 19:23] LABS: BACTERIA,URINE NONE SEEN /HPF (Neg); RBC,URINE 0-2 /HPF (0-2); SQUAMOUS EPITHELIAL CELL,UR FEW /LPF (FEW); WBC,URINE NONE SEEN /HPF (0-4)
[2020-07-21 19:56] LABS: BASOPHILS # (AUTO) 0.1 X10'3 (0-0.2); BASOPHILS % (AUTO) 0.4 % (0-1); EOSINOPHILS # (AUTO) 0.1 X10'3 (0-0.9); EOSINOPHILS % (AUTO) 0.4 % (0-6); HEMATOCRIT 35.6 % (42.0-52.0); HEMOGLOBIN 12.1 g/dl (14.0-17.9); LYMPHOCYTES # (AUTO) 0.5 X10'3 (1.1-4.8); LYMPHOCYTES % (AUTO) 2.6 % (21-51); MEAN CORPUSCULAR HEMOGLOBIN 32.3 PG (27.0-31.0); MEAN CORPUSCULAR VOLUME 94.7 FL (78-98); MEAN PLATELET VOLUME 6.7 FL (7.4-10.4); MONOCYTES % (AUTO) 5.6 % (2-12); NEUTROPHILS # (AUTO) 16.1 X10'3 (1.8-7.7); PLATELET COUNT 250 X10'3 (140-440); RED BLOOD COUNT 3.76 X10'6 (4.70-6.10); RED CELL DISTRIBUTION WIDTH 13.9 % (11.5-14.5); WHITE BLOOD COUNT 17.7 X10'3 (4.5-11.0)
[2020-07-21 20:08] LABS: ALANINE AMINOTRANSFERASE 35 U/L (12-78); ALBUMIN 4.1 G/DL (3.4-5.0); ALBUMIN/GLOBULIN RATIO 1.1 (1.1-1.5); ALKALINE PHOSPHATASE 82 IU/L (46-116); ANION GAP 13 (8-16); ASPARTATE AMINO TRANSFERASE 18 U/L (10-37); BILIRUBIN,TOTAL 0.3 MG/DL (0.1-1.0); BLOOD UREA NITROGEN 39 MG/DL (7-18); BUN/CREATININE RATIO 7.1 (5.4-32.0); CALCIUM 10.3 MG/DL (8.5-10.1); CHLORIDE 98 MMOL/L (99-107); CREATININE 5.49 MG/DL (0.60-1.10); GLUCOSE 396 MG/DL (70-104); PHOSPHORUS 4.7 MG/DL (2.3-4.5); SODIUM 138 MMOL/L (135-145); TOTAL CARBON DIOXIDE 26.8 MMOL/L (24-32); eGFR 11 ML/MIN
[2020-07-21] MEDS ORDERED: ERGO500056 PO (20:13)
[2020-07-21] MEDS ORDERED: ALOG25TA2 PO (20:13)
[2020-07-21] MEDS ORDERED: FOLI0.8T22 PO (20:18)
[2020-07-21] MEDS ORDERED: APIX2.5T PO (20:18)
[2020-07-21] MEDS ORDERED: insulin regular, human 10 units/0.1 ml syringe IV ONE (20:25)
[2020-07-21 20:48] VITALS: BP 138/63
[2020-07-23] MEDS ORDERED: METO-292 PO (12:38)
[2020-07-28] MEDS ORDERED: AMIO200T27 PO (12:26)
== END 2020-07-21 21:00 | disposition home or self-care (01) ==
LOC: ER 17:21
DX: N18.6 End stage renal disease (principal); R11.2 Nausea with vomiting, unspecified; E11.65 Type 2 diabetes mellitus with hyperglycemia; E11.22 Type 2 diabetes mellitus with diabetic chronic kidney disease; Z99.2 Dependence on renal dialysis; E11.42 Type 2 diabetes mellitus with diabetic polyneuropathy; I50.9 Heart failure, unspecified; E78.00 Pure hypercholesterolemia, unspecified; I13.2 Hypertensive heart and chronic kidney disease with heart failure and with stage 5 chronic kidney disease, or end stage renal disease; K21.9 Gastro-esophageal reflux disease without esophagitis; E03.9 Hypothyroidism, unspecified; G89.29 Other chronic pain; F32.9 Major depressive disorder, single episode, unspecified; Z90.49 Acquired absence of other specified parts of digestive tract; F12.90 Cannabis use, unspecified, uncomplicated; F15.90 Other stimulant use, unspecified, uncomplicated; Z79.01 Long term (current) use of anticoagulants; Z79.899 Other long term (current) drug therapy
CPT/HCPCS: 36415; 80053; 81001; 82948; 83735; 84100; 85025; 96374; 96375; 99285; J1815; J2060; J2765; J7030

== ENCOUNTER 2020-11-21 07:04 | Day surgery (SDC) | payer MEDICARE, MEDICAID ==
[2020-11-15 10:43] LABS: BASOPHILS # (AUTO) 0.1 X10'3 (0-0.2); BASOPHILS % (AUTO) 0.7 % (0-1); EOSINOPHILS # (AUTO) 0.1 X10'3 (0-0.9); EOSINOPHILS % (AUTO) 1.1 % (0-6); LYMPHOCYTES # (AUTO) 1.9 X10'3 (1.1-4.8); LYMPHOCYTES % (AUTO) 25.8 % (21-51); MEAN CORPUSCULAR HEMOGLOBIN 32.7 PG (27.0-31.0); MEAN CORPUSCULAR HGB CONC 33.2 g/dL (33.0-36.5); MEAN CORPUSCULAR VOLUME 98.5 FL (78-98); MEAN PLATELET VOLUME 6.6 FL (7.4-10.4); MONOCYTES # (AUTO) 0.9 X10'3 (0-0.9); NEUTROPHILS # (AUTO) 4.5 X10'3 (1.8-7.7); NEUTROPHILS % (AUTO) 60.4 % (42-75); PRE OP HEMATOCRIT 32.6 % (42.0-52.0); PRE OP PLATELET COUNT 283 X10'3 (140-440); RED BLOOD COUNT 3.31 X10'6 (4.70-6.10); RED CELL DISTRIBUTION WIDTH 14.5 % (11.5-14.5)
[2020-11-15 10:47] LABS: PRE OP HEMOGLOBIN 10.8 g/dL (14.0-17.9)
[2020-11-15 10:54] LABS: PRE OP PROTIME 10.8 SECONDS (9.0-12.0)
[2020-11-15 11:02] LABS: ALBUMIN 3.8 G/DL (3.4-5.0); ALKALINE PHOSPHATASE 98 IU/L (46-116); BLOOD UREA NITROGEN 43 MG/DL (7-18); BUN/CREATININE RATIO 7.6 (5.4-32.0); CALCIUM 9.1 MG/DL (8.5-10.1); CHLORIDE 99 MMOL/L (99-107); CREATININE 5.68 MG/DL (0.60-1.10); PRE OP ALT 26 U/L (30-65); PRE OP ANION GAP 9 (8-16); PRE OP AST 20 U/L (10-37); PRE OP BILIRUB, TOTAL 0.2 MG/DL (0.0-1.0); PRE OP GLUCOSE 73 MG/DL (70-104); PRE OP POTASSIUM 4.3 MMOL/L (3.4-5.1); PRE OP SODIUM 140 MMOL/L (135-145); TOTAL CARBON DIOXIDE 31.9 MMOL/L (24-32); TOTAL PROTEIN 7.6 G/DL (6.4-8.2); eGFR 10 ML/MIN
[~2020-11-21] VITALS: Ht 167.6 cm; Wt 75.8 kg
[2020-11-21] VITALS (7 sets, daily range): BP systolic 118–154; BP diastolic 58–74
[~2020-11-21 07:04] MED LIST changes: +AMIO100T4 PO; +AMLO10TA14 PO; +BUPIVAcaine/PF 2.5 mg/ml (0.25%) 30ml vial ONE; -FOLI0.8T22 PO; +LIDOcaine 1% 30ml preserv. free vial ONE; -SITA25TA3 PO; +ceFAZolin 2gm in dextrose, iso 50 ML IV ONE; +famotidine 20mg tablet PO ONE; +ringers solution, lacted 1,000 ML IV SCH
[2020-11-21] MEDS ORDERED: ringers solution, lacted 1,000 ML IV SCH (07:25)
[2020-11-21] MEDS ORDERED: morphine 4 MG/ML inj SYRINge IV PRN (07:25)
[2020-11-21] MEDS ORDERED: morphine 2 MG/ML inj. syringe IV PRN (07:25)
[2020-11-21] MEDS ORDERED: ondansetron/PF 4mg/2ml inj IV PRN (07:25)
[2020-11-21] MEDS ORDERED: proCHLORperazine 10 MG/2 ml inj IV PRN (07:25)
[2020-11-21] MEDS ORDERED: ATRACURIUM 10 MG/ML 5ML INJECTION IV ONE (07:55)
[2020-11-21 08:33] LABS: ALANINE AMINOTRANSFERASE 35 U/L (12-78); ALBUMIN 3.7 G/DL (3.4-5.0); ALKALINE PHOSPHATASE 131 IU/L (46-116); ANION GAP 4 (8-16); ASPARTATE AMINO TRANSFERASE 22 U/L (10-37); BILIRUBIN,TOTAL 0.3 MG/DL (0.1-1.0); BLOOD UREA NITROGEN 31 MG/DL (7-18); BUN/CREATININE RATIO 6.6 (5.4-32.0); CALCIUM 8.7 MG/DL (8.5-10.1); CHLORIDE 99 MMOL/L (99-107); CREATININE 4.68 MG/DL (0.60-1.10); GLUCOSE 146 MG/DL (70-104); POTASSIUM 4.6 MMOL/L (3.5-5.1); SODIUM 139 MMOL/L (135-145); TOTAL CARBON DIOXIDE 36.4 MMOL/L (24-32); TOTAL PROTEIN 7.5 G/DL (6.4-8.2); eGFR 13 ML/MIN
[2020-11-21] MEDS ORDERED: dexamethasone sod phosphate 10mg/ml inj ONE (08:52)
[2020-11-21] MEDS ORDERED: acetaminophen 1000 MG/100ml vial IV ONE (08:52)
[2020-11-21] MEDS ORDERED: desflurane 240ml liquid inh. IH ONE (08:52)
[2020-11-21] MEDS ORDERED: fentaNYL/PF 50MCG/1 ML 2ML syringe ONE (08:57)
[2020-11-21] MEDS ORDERED: midazolam 2 mg/2 ml injection ONE (08:58)
[2020-11-21] MEDS ORDERED: propofol inj 20 ML IV ONE (09:06)
[2020-11-21] MEDS ORDERED: LIDOcaine 2% (20mg/ml) 5ml vial ONE (09:07)
[2020-11-21] MEDS ORDERED: ondansetron/PF 4mg/2ml inj ONE (09:22)
[2020-11-21] MEDS ORDERED: acetaminophen 325mg tablet PO PRN (10:50)
--- NOTE | 2020-11-21 10:55 | NUR ---
Received from OR via BED , accompanied by Anesthesiologist DR MARTINEZ and report given by Anesthesiolgist. PATIENT WAKING UP, DENIES PAIN, V/S WNL, NEUROVASCULAR CHECKS INTACT, 20G PIV RUE, SCD ON, BANDAIDS TO LAP SIGHTS OF ABDOMEN CDI.
--- NOTE | 2020-11-21 11:35 | NUR ---
PATIENT A&OX4, DENIES PAIN, V/S WNL, NEUROVASCULAR CHECKS INTACT, 20G PIV RUE D/C, SCD OFF, BANDAIDS TO LAP SIGHTS OF ABDOMEN CDI.. I HAVE REVIEWED D/C INSTRUCTIONS WITH PATIENT AND FAMILY HAVE VERBALIZED UNDERSTANDING.PATIENT WAS D/C HOME WITH ALL BELONGINGS AND FAMILY GAVE TRANSPORT HOME.
== END 2020-11-21 11:35 | disposition home or self-care (01) ==
LOC: PAS 07:04
PROVIDERS: ATTEND Surgery
DX: K40.30 Unilateral inguinal hernia, with obstruction, without gangrene, not specified as recurrent (principal); K21.9 Gastro-esophageal reflux disease without esophagitis; E11.40 Type 2 diabetes mellitus with diabetic neuropathy, unspecified; E11.22 Type 2 diabetes mellitus with diabetic chronic kidney disease; I12.0 Hypertensive chronic kidney disease with stage 5 chronic kidney disease or end stage renal disease; N18.6 End stage renal disease; I48.91 Unspecified atrial fibrillation; E03.9 Hypothyroidism, unspecified; D64.9 Anemia, unspecified; E78.5 Hyperlipidemia, unspecified; E11.43 Type 2 diabetes mellitus with diabetic autonomic (poly)neuropathy; K31.84 Gastroparesis; Z99.2 Dependence on renal dialysis; Z79.01 Long term (current) use of anticoagulants; Z79.899 Other long term (current) drug therapy; Z87.891 Personal history of nicotine dependence; Z87.19 Personal history of other diseases of the digestive system; Z20.822 Contact with and (suspected) exposure to COVID-19; Z82.49 Family history of ischemic heart disease and other diseases of the circulatory system; Z83.3 Family history of diabetes mellitus; Z84.1 Family history of disorders of kidney and ureter
CPT/HCPCS: 36415; 49650; 76937; 80053; 82948; 85025; 85610; 85730; 87635; 93005; C1781; J0131; J1100; J2001; J2250; J2405; J2704; J3010; J3490; A4215; A4618; J7120

== ENCOUNTER 2021-07-20 04:22 | Emergency (ER) | payer MEDICARE, MEDICAID ==
[~2021-07-20] VITALS: Ht 165.1 cm; Wt 62.7 kg
[~2021-07-20 04:22] MED LIST changes: -BUPIVAcaine/PF 2.5 mg/ml (0.25%) 30ml vial ONE; -LIDOcaine 1% 30ml preserv. free vial ONE; +LISI10TA27 PO; -LISI10TA4 PO; -ceFAZolin 2gm in dextrose, iso 50 ML IV ONE; -famotidine 20mg tablet PO ONE; -ringers solution, lacted 1,000 ML IV SCH
[2021-07-20] MEDS ORDERED: ondansetron 4mg rapidly disintigrating tab PO ONE (04:40)
[2021-07-20 05:18] LABS: BASOPHILS % (AUTO) 0.3 % (0-1); EOSINOPHILS % (AUTO) 0 % (0-6); HEMATOCRIT 36.4 % (42.0-52.0); HEMOGLOBIN 12.2 g/dl (14.0-17.9); LYMPHOCYTES # (AUTO) 0.9 X10'3 (1.1-4.8); LYMPHOCYTES % (AUTO) 7.8 % (21-51); MEAN CORPUSCULAR HEMOGLOBIN 32.7 PG (27.0-31.0); MEAN CORPUSCULAR HGB CONC 33.4 g/dL (33.0-36.5); MONOCYTES # (AUTO) 0.8 X10'3 (0-0.9); MONOCYTES % (AUTO) 7.3 % (2-12); NEUTROPHILS # (AUTO) 9.5 X10'3 (1.8-7.7); NEUTROPHILS % (AUTO) 84.6 % (42-75); PLATELET COUNT 267 X10'3 (140-440); RED BLOOD COUNT 3.71 X10'6 (4.70-6.10); WHITE BLOOD COUNT 11.2 X10'3 (4.5-11.0)
[2021-07-20 05:22] LABS: ALANINE AMINOTRANSFERASE 49 U/L (12-78); ALBUMIN 4.5 G/DL (3.4-5.0); ALBUMIN/GLOBULIN RATIO 1.3 (1.1-1.5); ALKALINE PHOSPHATASE 84 IU/L (46-116); ANION GAP 20 (8-16); ASPARTATE AMINO TRANSFERASE 53 U/L (10-37); BILIRUBIN,TOTAL 1.1 MG/DL (0.1-1.0); BLOOD UREA NITROGEN 40 MG/DL (7-18); BUN/CREATININE RATIO 6.2 (5.4-32.0); CALCIUM 10.2 MG/DL (8.5-10.1); CHLORIDE 95 MMOL/L (99-107); CREATININE 6.44 MG/DL (0.60-1.10); GLUCOSE 192 MG/DL (70-104); LIPASE 74 U/L (73-393); POTASSIUM 3.2 MMOL/L (3.5-5.1); SODIUM 142 MMOL/L (135-145); TOTAL CARBON DIOXIDE 26.9 MMOL/L (24-32); TOTAL PROTEIN 8.1 G/DL (6.4-8.2); eGFR 9 ML/MIN
[2021-07-20] MEDS ORDERED: normal saline 1000ml 1,000 ML IV ONE (05:40)
[2021-07-20] MEDS ORDERED: ondansetron/PF 4mg/2ml inj IV ONE (05:40)
[2021-07-20] MEDS ORDERED: metoclopramide 5 mg/ml inj IV ONE (07:55)
[2021-07-20] MEDS ORDERED: diphenhydrAMINE 50 mg/ml inj IV ONE (08:30)
[2021-07-20] MEDS ORDERED: METO-292 PO (10:08)
[2021-07-20 10:20] VITALS: BP 183/93
== END 2021-07-20 10:49 | disposition home or self-care (01) ==
LOC: ER 04:22
DX: R11.2 Nausea with vomiting, unspecified (principal); E11.43 Type 2 diabetes mellitus with diabetic autonomic (poly)neuropathy; E11.65 Type 2 diabetes mellitus with hyperglycemia; E78.00 Pure hypercholesterolemia, unspecified; I11.0 Hypertensive heart disease with heart failure; I50.9 Heart failure, unspecified; K21.9 Gastro-esophageal reflux disease without esophagitis; F12.90 Cannabis use, unspecified, uncomplicated; F15.90 Other stimulant use, unspecified, uncomplicated; G89.29 Other chronic pain; E03.9 Hypothyroidism, unspecified; I12.9 Hypertensive chronic kidney disease with stage 1 through stage 4 chronic kidney disease, or unspecified chronic kidney disease; E11.22 Type 2 diabetes mellitus with diabetic chronic kidney disease; N18.9 Chronic kidney disease, unspecified; Z90.49 Acquired absence of other specified parts of digestive tract
CPT/HCPCS: 36415; 74176; 80053; 83690; 85025; 96361; 96374; 96375; 99284; J1200; J2405; J2765; J7030

== ENCOUNTER 2022-04-12 08:37 | Emergency (ER) | payer MEDICARE, MEDICAID ==
[~2022-04-12] VITALS: Ht 167.6 cm; Wt 63.5 kg
[~2022-04-12 08:37] MED LIST changes: +METO-292 PO
[2022-04-12] MEDS ORDERED: metoclopramide 5 mg/ml inj IV ONE (09:00)
--- NOTE | 2022-04-12 09:09 | NUR ---
TO CT SCAN.
[2022-04-12 11:42] VITALS: BP 177/75
== END 2022-04-12 11:50 | disposition home or self-care (01) ==
LOC: ER 08:38
DX: R11.2 Nausea with vomiting, unspecified (principal); E11.43 Type 2 diabetes mellitus with diabetic autonomic (poly)neuropathy; K31.84 Gastroparesis; E13.22 Other specified diabetes mellitus with diabetic chronic kidney disease; I13.2 Hypertensive heart and chronic kidney disease with heart failure and with stage 5 chronic kidney disease, or end stage renal disease; N18.6 End stage renal disease; F32.9 Major depressive disorder, single episode, unspecified; G89.29 Other chronic pain; K21.9 Gastro-esophageal reflux disease without esophagitis; F12.10 Cannabis abuse, uncomplicated; F15.10 Other stimulant abuse, uncomplicated; Z79.899 Other long term (current) drug therapy; S09.90XA Unspecified injury of head, initial encounter
CPT/HCPCS: 70450; 71045; 82948; 96374; 99285; J2765

== ENCOUNTER 2022-07-09 11:31 | Day surgery (SDC) | payer MEDICARE, MEDICAID ==
[2022-07-04 10:48] LABS: BASOPHILS % (AUTO) 0.1 % (0-1); EOSINOPHILS % (AUTO) 0 % (0-6); HEMATOCRIT 39.4 % (42.0-52.0); HEMOGLOBIN 12.6 g/dl (14.0-17.9); LYMPHOCYTES # (AUTO) 0.6 X10'3 (1.1-4.8); LYMPHOCYTES % (AUTO) 3.7 % (21-51); MEAN CORPUSCULAR HEMOGLOBIN 32.1 PG (27.0-31.0); MEAN CORPUSCULAR HGB CONC 31.9 g/dL (33.0-36.5); MEAN CORPUSCULAR VOLUME 100.5 FL (78-98); MEAN PLATELET VOLUME 7.5 FL (7.4-10.4); MONOCYTES # (AUTO) 0.8 X10'3 (0-0.9); MONOCYTES % (AUTO) 5.6 % (2-12); NEUTROPHILS # (AUTO) 13.7 X10'3 (1.8-7.7); NEUTROPHILS % (AUTO) 90.6 % (42-75); PLATELET COUNT 251 X10'3 (140-440); RED BLOOD COUNT 3.92 X10'6 (4.70-6.10); RED CELL DISTRIBUTION WIDTH 14.3 % (11.5-14.5); WHITE BLOOD COUNT 15.1 X10'3 (4.5-11.0)
[2022-07-04 10:49] LABS: ALBUMIN 4.2 G/DL (3.4-5.0); ANION GAP 16 (8-16); BLOOD UREA NITROGEN 18 MG/DL (7-18); BUN/CREATININE RATIO 6.1 (5.4-32.0); CALCIUM 10.1 MG/DL (8.5-10.1); CHLORIDE 101 MMOL/L (99-107); CREATININE 2.97 MG/DL (0.60-1.10); GLUCOSE 164 MG/DL (70-104); POTASSIUM 4.2 MMOL/L (3.5-5.1); SODIUM 140 MMOL/L (135-145); TOTAL CARBON DIOXIDE 23.5 MMOL/L (24-32); eGFR 22 ML/MIN
[2022-07-04 10:50] LABS: APTT 31 SECONDS (22-32)
[2022-07-09] VITALS (7 sets, daily range): BP systolic 139–188; BP diastolic 68–95
[~2022-07-09] VITALS: Ht 167.6 cm; Wt 65.5 kg
[2022-07-09] MEDS ORDERED: diphenhydrAMINE 25mg capsule PO PRN (11:50)
[2022-07-09] MEDS ORDERED: normal saline 1,000 ML IV SCH (11:50)
[2022-07-09] MEDS ORDERED: LORazepam 0.5 MG tablet PO PRN (11:50)
[2022-07-09] MEDS ORDERED: VIT1TABL50 PO (12:03)
[2022-07-09] MEDS ORDERED: APIX5TAB3 PO (12:03)
[2022-07-09] MEDS ORDERED: SITA25TA3 PO (12:03)
[2022-07-09] MEDS ORDERED: LEVO125T PO (12:03)
[2022-07-09] MEDS ORDERED: CINA30TA7 PO (12:03)
[2022-07-09] MEDS ORDERED: METO5TAB98 PO (12:03)
[2022-07-09] MEDS ORDERED: dextrose 50%-water 50ml dispensing syringe IV ONE ×2 (12:22→12:30)
[2022-07-09 12:35] LABS: BASOPHILS % (AUTO) 0.2 % (0-1); EOSINOPHILS % (AUTO) 0 % (0-6); HEMATOCRIT 36.9 % (42.0-52.0); HEMOGLOBIN 12.3 g/dl (14.0-17.9); LYMPHOCYTES # (AUTO) 0.8 X10'3 (1.1-4.8); LYMPHOCYTES % (AUTO) 13.1 % (21-51); MEAN CORPUSCULAR HEMOGLOBIN 32.8 PG (27.0-31.0); MEAN CORPUSCULAR HGB CONC 33.2 g/dL (33.0-36.5); MEAN CORPUSCULAR VOLUME 98.7 FL (78-98); MEAN PLATELET VOLUME 6.9 FL (7.4-10.4); MONOCYTES # (AUTO) 0.8 X10'3 (0-0.9); MONOCYTES % (AUTO) 12.7 % (2-12); NEUTROPHILS # (AUTO) 4.5 X10'3 (1.8-7.7); PLATELET COUNT 188 X10'3 (140-440); RED BLOOD COUNT 3.74 X10'6 (4.70-6.10); RED CELL DISTRIBUTION WIDTH 13.9 % (11.5-14.5); WHITE BLOOD COUNT 6.1 X10'3 (4.5-11.0)
[2022-07-09 12:46] LABS: ALBUMIN 3.4 G/DL (3.4-5.0); ANION GAP 9 (8-16); BLOOD UREA NITROGEN 14 MG/DL (7-18); BUN/CREATININE RATIO 4.7 (5.4-32.0); CALCIUM 9.4 MG/DL (8.5-10.1); CHLORIDE 102 MMOL/L (99-107); CREATININE 2.98 MG/DL (0.60-1.10); POTASSIUM 3.3 MMOL/L (3.5-5.1); SODIUM 141 MMOL/L (135-145); TOTAL CARBON DIOXIDE 29.9 MMOL/L (24-32); eGFR 22 ML/MIN
[2022-07-09 13:01] LABS: GLUCOSE 46 MG/DL (70-104)
[2022-07-09] MEDS ORDERED: iohexol 350MG/ML 100ml bottle IV ONE (13:28)
[2022-07-09] MEDS ORDERED: midazolam 1 mg/ML 2ml injection ONE (13:28)
[2022-07-09] MEDS ORDERED: LIDOcaine 1%/PF 5ML 10 MG/ML VIAL ONE (13:28)
[2022-07-09] MEDS ORDERED: fentaNYL/PF 50MCG/1 ML 2ML syringe ONE (13:28)
[2022-07-09] MEDS ORDERED: heparin 1,000unit/ml 10ml vial 0 ML ONE (13:28)
--- NOTE | 2022-07-09 14:57 | NUR ---
PATIENT RETURNED FROM LOFT RIGGER - CHECKED CAPILLARY BLOOD GLUCOSE - RESULTS 50. REPORTED TO PRIMARY NURSE JOLANTA CARNEY.
[2022-07-09] MEDS ORDERED: glucagon, human recombinant 1mg kit SUBCUT PRN (15:10)
[2022-07-09] MEDS ORDERED: insulin Lispro (HumaLOG) vial - multi-dose SQ SCH (15:10)
[2022-07-09] MEDS ORDERED: MESSAGE TO PHARMACY PO ONE (15:10)
[2022-07-09] MEDS ORDERED: dextrose 50%-water 50ml dispensing syringe IV PRN ×2 (15:10)
[2022-07-09] MEDS ORDERED: DEXTROSE 15 GM of carb/4 tabs (each vial/BOTTLE has 4 tablets) PO PRN ×2 (15:10)
[2022-07-09] MEDS ORDERED: HYDROcodone/acetaminophen 5mg/325mg tablet PO PRN (15:20)
[2022-07-09] MEDS ORDERED: HYDROcodone/acetaminophen 10/325mg tab PO PRN (15:20)
[2022-07-09 16:53] LABS: HEMOGLOBIN A1C 5.8 % (4.5-6.2)
[2022-07-09] MEDS ORDERED: insulin glargine (Lantus) pen - multi-dose SQ SCH (21:00)
== END 2022-07-09 16:25 | disposition home or self-care (01) ==
LOC: SSTAY O 11:31
PROVIDERS: ATTEND Student in an Organized Health Care Education/Training Program
DX: I25.10 Atherosclerotic heart disease of native coronary artery without angina pectoris (principal); R94.39 Abnormal result of other cardiovascular function study; E11.22 Type 2 diabetes mellitus with diabetic chronic kidney disease; N18.9 Chronic kidney disease, unspecified; I48.91 Unspecified atrial fibrillation; E03.9 Hypothyroidism, unspecified; E11.51 Type 2 diabetes mellitus with diabetic peripheral angiopathy without gangrene; I73.9 Peripheral vascular disease, unspecified; I12.0 Hypertensive chronic kidney disease with stage 5 chronic kidney disease or end stage renal disease; N18.6 End stage renal disease; Z99.2 Dependence on renal dialysis
CPT/HCPCS: 36415; 80048; 82948; 83036; 85025; 85610; 85730; 93005; 93458; 99152; C1760; C1894; J1644; J1815; J2250; J3010; J3490; J7030; Q0163; Q9967; A4620; A6258

== ENCOUNTER 2023-05-07 08:16 | Day surgery (SDC) | payer MEDICARE, MEDICAID ==
[~2023-05-07] VITALS: Ht 167.6 cm; Wt 67.0 kg
[2023-05-07] VITALS (8 sets, daily range): BP systolic 116–163; BP diastolic 58–78
[~2023-05-07 08:16] MED LIST changes: -AMLO10TA13 PO; -AMLO10TA14 PO; -APIX2.5T PO; +APIX5TAB3 PO; -ASPI-1053 PO; +CINA30TA7 PO; +LEVO125T PO; -LEVO137T24 PO; -METO-292 PO; -METO-543 PO; +METO5TAB98 PO; +SITA25TA3 PO; +VIT1TABL50 PO; -fish oil PO
[2023-05-07 09:55] LABS: BASOPHILS % (AUTO) 0.5 % (0-1); EOSINOPHILS % (AUTO) 0 % (0-6); HEMATOCRIT 37.6 % (42.0-52.0); HEMOGLOBIN 12.1 g/dl (14.0-17.9); LYMPHOCYTES # (AUTO) 0.9 X10'3 (1.1-4.8); LYMPHOCYTES % (AUTO) 15.8 % (21-51); MEAN CORPUSCULAR HEMOGLOBIN 32.4 PG (27.0-31.0); MEAN CORPUSCULAR HGB CONC 32.2 g/dL (33.0-36.5); MEAN CORPUSCULAR VOLUME 100.5 FL (78-98); MEAN PLATELET VOLUME 7.2 FL (7.4-10.4); MONOCYTES # (AUTO) 0.8 X10'3 (0-0.9); MONOCYTES % (AUTO) 13.7 % (2-12); NEUTROPHILS # (AUTO) 4.1 X10'3 (1.8-7.7); PLATELET COUNT 179 X10'3 (140-440); RED BLOOD COUNT 3.74 X10'6 (4.70-6.10); RED CELL DISTRIBUTION WIDTH 16.2 % (11.5-14.5); WHITE BLOOD COUNT 5.9 X10'3 (4.5-11.0)
[2023-05-07] MEDS ORDERED: midazolam 1 mg/ML 2ml injection ONE ×2 (09:56→10:43)
[2023-05-07] MEDS ORDERED: iohexol 300mg/ml 100ml inj. ONE ×2 (09:56→10:25)
[2023-05-07] MEDS ORDERED: heparin 1,000 UNITS/NS 500ml 500 ML ONE (09:56)
[2023-05-07] MEDS ORDERED: fentaNYL/PF 50MCG/1 ML 2ML syringe ONE ×2 (09:56→10:43)
[2023-05-07 10:00] LABS: ALBUMIN 3.6 G/DL (3.4-5.0); ANION GAP 8 (8-16); BLOOD UREA NITROGEN 33 MG/DL (7-18); BUN/CREATININE RATIO 6.3 (10.0-20.0); CALCIUM 8.8 MG/DL (8.5-10.1); CHLORIDE 104 MMOL/L (99-107); CREATININE 5.25 MG/DL (0.60-1.10); GLUCOSE 78 MG/DL (70-104); POTASSIUM 3.8 MMOL/L (3.5-5.1); SODIUM 138 MMOL/L (135-145); eGFR 11 ML/MIN
[2023-05-07] MEDS ORDERED: hydrALAZINE 20mg/ml inj. IV ONE (11:17)
[2023-05-07] MEDS ORDERED: ondansetron/PF 4mg/2ml inj ONE (11:58)
== END 2023-05-07 13:55 | disposition home or self-care (01) ==
LOC: SSTAY O 08:16
PROVIDERS: ATTEND Radiology Vascular & Interventional Radiology
DX: T82.868A Thrombosis due to vascular prosthetic devices, implants and grafts, initial encounter (principal); E11.22 Type 2 diabetes mellitus with diabetic chronic kidney disease; N18.6 End stage renal disease; I48.91 Unspecified atrial fibrillation; Z79.01 Long term (current) use of anticoagulants; Z79.899 Other long term (current) drug therapy; Z90.49 Acquired absence of other specified parts of digestive tract; F12.90 Cannabis use, unspecified, uncomplicated; F15.90 Other stimulant use, unspecified, uncomplicated; Z82.3 Family history of stroke; Z83.3 Family history of diabetes mellitus; Z82.49 Family history of ischemic heart disease and other diseases of the circulatory system; Y83.2 Surgical operation with anastomosis, bypass or graft as the cause of abnormal reaction of the patient, or of later complication, without mention of misadventure at the time of the procedure; Y92.89 Other specified places as the place of occurrence of the external cause
CPT/HCPCS: 36415; 36902; 80048; 85025; 85610; 99152; 99153; C1725; C1769; J0360; J1644; J2250; J2405; J3010; J7030; Q9967; A4620; A6258; A6449; C1894

== ENCOUNTER 2024-11-24 08:53 | Inpatient (IN) | payer MEDICARE, MEDICAID ==
[~2024-11-24] VITALS: Ht 167.6 cm; Wt 70.0 kg
[~2024-11-24 08:53] MED LIST changes: -AMA1T PO; +GLIM1TAB57 PO
[2024-11-24 09:26] LABS: BASOPHILS % (AUTO) 0.5 % (0-1); EOSINOPHILS % (AUTO) 0.1 % (0-6); HEMATOCRIT 28.7 % (42.0-52.0); HEMOGLOBIN 9.5 g/dl (14.0-17.9); LYMPHOCYTES # (AUTO) 0.7 X10'3 (1.1-4.8); LYMPHOCYTES % (AUTO) 10.5 % (21-51); MEAN CORPUSCULAR VOLUME 99.8 FL (78-98); MONOCYTES # (AUTO) 0.8 X10'3 (0-0.9); MONOCYTES % (AUTO) 12.3 % (2-12); NEUTROPHILS # (AUTO) 5.1 X10'3 (1.8-7.7); NEUTROPHILS % (AUTO) 76.6 % (42-75); PLATELET COUNT 194 X10'3 (140-440); RED BLOOD COUNT 2.87 X10'6 (4.70-6.10); RED CELL DISTRIBUTION WIDTH 16.4 % (11.5-14.5); WHITE BLOOD COUNT 6.7 X10'3 (4.5-11.0)
[2024-11-24 09:39] LABS: APTT 37 SECONDS (22-32); INR 1.6 INR; PROTHROMBIN TIME 15.9 SECONDS (9.0-12.0)
[2024-11-24 09:49] LABS: ALANINE AMINOTRANSFERASE 36 U/L (12-78); ALBUMIN 3.1 G/DL (3.4-5.0); ALBUMIN/GLOBULIN RATIO 0.9 (1.1-1.5); ALKALINE PHOSPHATASE 103 IU/L (46-116); ANION GAP 13 (8-16); ASPARTATE AMINO TRANSFERASE 32 U/L (10-37); BILIRUBIN,TOTAL 0.5 MG/DL (0.1-1.0); BLOOD UREA NITROGEN 15 MG/DL (7-18); BUN/CREATININE RATIO 5.5 (10.0-20.0); CALCIUM 9.6 MG/DL (8.5-10.1); CHLORIDE 103 MMOL/L (99-107); CREATININE 2.71 MG/DL (0.60-1.10); POTASSIUM 4.1 MMOL/L (3.5-5.1); SODIUM 141 MMOL/L (135-145); TOTAL CARBON DIOXIDE 24.7 MMOL/L (24-32); TOTAL PROTEIN 6.5 G/DL (6.4-8.2); eCRCL 26 ML/MIN; eGFR 24 ML/MIN
[2024-11-24 09:52] LABS: GLUCOSE 105 MG/DL (70-104); PRO BRAIN NATRIURETIC PEPTIDE 12214 PG/ML (0-125)
[2024-11-24] MEDS ORDERED: WARF3TAB56 PO (10:24)
[2024-11-24] MEDS ORDERED: HYDR100T12 PO (10:24)
[2024-11-24] MEDS ORDERED: FOSI40TA71 PO (10:24)
[2024-11-24] MEDS ORDERED: AMLO-708 PO (10:24)
[2024-11-24] MEDS ORDERED: magnesium hydroxide 30ml (MOM) UD suspension PO PRN (10:25)
[2024-11-24] MEDS ORDERED: morphine 2 MG/ML inj. syringe IV PRN ×2 (10:25)
[2024-11-24] MEDS ORDERED: acetaminophen 325mg tablet PO PRN (10:25)
[2024-11-24] MEDS ORDERED: magnesium sulf-water 4G/100mL 100 ML IV PRN (10:25)
[2024-11-24] MEDS ORDERED: mag hydrox/Alum hydrox/simeth 30ml oral suspension PO PRN (10:25)
[2024-11-24] MEDS ORDERED: potassium Cl 20 mEq SR tablet PO PRN ×2 (10:25)
[2024-11-24] MEDS ORDERED: potassium Cl 40MEQ/1/2NS 520ml 520 ML IV PRN (10:25)
[2024-11-24] MEDS ORDERED: magnesium sulf-water 2g/50mL 50 ML IV PRN (10:25)
[2024-11-24 11:28] LABS: OCCULT BLOOD STOOL NEGATIVE (Neg)
[2024-11-24] MEDS ORDERED: heparin 10,000 units/1 ML INJ IV PRN (13:10)
[2024-11-24] MEDS: aspirin 81mg, enteric-coated 1 TAB TABLET.DR PO ONE (13:12)
[2024-11-24] MEDS: atorvastatin 20mg tablet PO ONE (13:12)
[2024-11-24] MEDS: metoprolol succinate 25mg (24-HOUR) SR. Tablet PO ONE (13:12)
[2024-11-24] MEDS: HEPARIN DRIP-CARDIAC**PHARMACIST-TO-DOSE IV ONE (13:17)
[2024-11-24] MEDS: heparin 10,000 units/1 ML INJ IV ONE (13:35)
[2024-11-24] MEDS: heparin 25,000 UNIT/250ml bag 250 ML IV PRN (13:36)
[2024-11-24] MEDS: MESSAGE TO NURSING IV ONE ×2 (13:41)
[2024-11-24 15:00] VITALS: BP 173/78; PULSE 76; RESP 13; TEMP 97.2; O2SAT 93
[2024-11-24] MEDS ORDERED: heparin 1,000unit/ml 10ml vial 10 ML ONE (15:53)
[2024-11-24] MEDS ORDERED: iohexol 350 MG/ML 50ML vial IV ONE (15:53)
[2024-11-24] MEDS ORDERED: LIDOcaine 1% (10mg/ml) 2ml vial ONE ×2 (15:53→20:14)
[2024-11-24] MEDS ORDERED: verapamil 2.5 mg/ml inj IV ONE (15:53)
[2024-11-24] MEDS ORDERED: iohexol 350MG/ML 100ml bottle IV ONE ×2 (15:53→21:18)
[2024-11-24] MEDS ORDERED: nitroGLYCERIN 500mcg/5mL D5W 5 ML IV ONE ×2 (15:54→21:21)
[2024-11-24] MEDS: K and/or MAG REPLACEMENT MC SCH (19:53)
[2024-11-24] MEDS: docusate sod 100mg capsule PO SCH (19:53)
[2024-11-24] MEDS ORDERED: LIDOcaine 1% 30ml preserv. free vial ONE (20:43)
[2024-11-24] MEDS ORDERED: midazolam 1 mg/ML 2ml injection ONE (20:43)
[2024-11-24] MEDS ORDERED: fentaNYL/PF 50MCG/1 ML 2ML syringe ONE (20:44)
[2024-11-24] MEDS ORDERED: clopidogrel 300mg tablet ONE (21:28)
[2024-11-24] MEDS ORDERED: aspirin 325mg tablet ONE (21:38)
[2024-11-24 22:30] VITALS: BP 144/93; PULSE 68; RESP 19; O2SAT 93
[2024-11-24 22:45] VITALS: BP 126/39; PULSE 68; RESP 12; O2SAT 93
[2024-11-24 23:00] VITALS: BP 141/41; PULSE 68; RESP 15; O2SAT 93
[2024-11-24 23:15] VITALS: BP 133/46; PULSE 69; RESP 17; O2SAT 93
[2024-11-24 23:30] VITALS: BP 135/48; PULSE 70; RESP 18; O2SAT 93
[2024-11-25] VITALS (11 sets, daily range): BP systolic 92–165; BP diastolic 49–96; PULSE 63–76; RESP 12–23; TEMP 97.5–98.6; O2SAT 93–99
[2024-11-25 04:52] LABS: BASOPHILS # (AUTO) 0.1 X10'3 (0-0.2); BASOPHILS % (AUTO) 0.8 % (0-1); EOSINOPHILS % (AUTO) 0.2 % (0-6); HEMATOCRIT 29.2 % (42.0-52.0); HEMOGLOBIN 9.5 g/dl (14.0-17.9); LYMPHOCYTES # (AUTO) 1.3 X10'3 (1.1-4.8); LYMPHOCYTES % (AUTO) 18.3 % (21-51); MEAN CORPUSCULAR HEMOGLOBIN 32.2 PG (27.0-31.0); MEAN CORPUSCULAR HGB CONC 32.4 g/dL (33.0-36.5); MEAN CORPUSCULAR VOLUME 99.4 FL (78-98); MEAN PLATELET VOLUME 7.3 FL (7.4-10.4); MONOCYTES # (AUTO) 0.8 X10'3 (0-0.9); MONOCYTES % (AUTO) 11.7 % (2-12); NEUTROPHILS # (AUTO) 4.7 X10'3 (1.8-7.7); PLATELET COUNT 209 X10'3 (140-440); RED BLOOD COUNT 2.94 X10'6 (4.70-6.10); RED CELL DISTRIBUTION WIDTH 16.6 % (11.5-14.5); WHITE BLOOD COUNT 6.9 X10'3 (4.5-11.0)
[2024-11-25 05:34] LABS: ALANINE AMINOTRANSFERASE 40 U/L (12-78); ALBUMIN 3.3 G/DL (3.4-5.0); ALBUMIN/GLOBULIN RATIO 0.9 (1.1-1.5); ALKALINE PHOSPHATASE 104 IU/L (46-116); ANION GAP 10 (8-16); ASPARTATE AMINO TRANSFERASE 87 U/L (10-37); BILIRUBIN,TOTAL 0.4 MG/DL (0.1-1.0); BLOOD UREA NITROGEN 33 MG/DL (7-18); BUN/CREATININE RATIO 6.5 (10.0-20.0); CALCIUM 9.7 MG/DL (8.5-10.1); CHLORIDE 104 MMOL/L (99-107); CHOL/HDL RATIO 1.8 (0.00-4.99); CHOLESTEROL 121 MG/DL (0-200); CREATININE 5.07 MG/DL (0.60-1.10); GLUCOSE 95 MG/DL (70-104); HDL CHOLESTEROL 68 MG/DL (35-60); LDL CHOLESTEROL 37 MG/DL (50-100); MAGNESIUM 2.1 MG/DL (1.5-2.4); POTASSIUM 4.9 MMOL/L (3.5-5.1); SODIUM 139 MMOL/L (135-145); TOTAL CARBON DIOXIDE 24.7 MMOL/L (24-32); TOTAL PROTEIN 6.9 G/DL (6.4-8.2); TRIGLYCERIDES 115 MG/DL (20-135); eCRCL 14 ML/MIN; eGFR 12 ML/MIN
[2024-11-25 06:45] LABS: ISTAT HGB MIX 8.5 g/dl (14.0-17.9); ISTAT Hct MIX 25 %PCV (42-52); ISTAT O2 SATURATION MIX VENOUS 68 % (60-80); ISTAT SOURCE BLNK
[2024-11-25 06:46] LABS: ISTAT HGB ART 8.5 g/dl (14.0-17.9); ISTAT Hct ART 25 %PCV (42-52); ISTAT O2 SATURATION ARTERIAL 99 % (95-98); ISTAT SOURCE BLNK
[2024-11-25] MEDS: metoprolol succinate 25mg (24-HOUR) SR. Tablet PO SCH (08:26)
[2024-11-25] MEDS: aspirin 81mg, enteric-coated 1 TAB TABLET.DR PO SCH (08:26)
[2024-11-25] MEDS: atorvastatin 20mg tablet PO SCH (08:27)
[2024-11-25] MEDS: pneumococcal 23-VAL P-sac vacc 25 mcg/0.5ml vial IMVAC ONE (08:29)
[2024-11-25] MEDS ORDERED: warfarin 3mg tablet PO SCH (11:35)
[2024-11-25 13:12] LABS: INR 1.4 INR; PROTHROMBIN TIME 14.6 SECONDS (9.0-12.0)
[2024-11-25] MEDS: clopidogrel 75mg tablet PO ONE (14:27)
[2024-11-25] MEDS: levoTHYROXINE 125mcg tablet PO SCH (14:27)
[2024-11-25] MEDS ORDERED: apixaban 5mg tablet PO SCH (20:00)
[2024-11-25] MEDS: amLODIPine 5mg tablet PO SCH (22:15)
[2024-11-25] MEDS: warfarin 3mg tablet PO ONE (22:16)
[2024-11-26] MEDS: ondansetron/PF 4mg/2ml inj IV PRN (01:08)
[2024-11-26 02:00] VITALS: BP 120/53; PULSE 68; RESP 18; TEMP 97.7; O2SAT 99
[2024-11-26 05:12] LABS: BASOPHILS % (AUTO) 0.5 % (0-1); EOSINOPHILS % (AUTO) 0.2 % (0-6); HEMATOCRIT 24.7 % (42.0-52.0); HEMOGLOBIN 8.1 g/dl (14.0-17.9); LYMPHOCYTES # (AUTO) 1.1 X10'3 (1.1-4.8); LYMPHOCYTES % (AUTO) 14.4 % (21-51); MEAN CORPUSCULAR HEMOGLOBIN 32.6 PG (27.0-31.0); MEAN CORPUSCULAR HGB CONC 32.9 g/dL (33.0-36.5); MEAN CORPUSCULAR VOLUME 99.2 FL (78-98); MEAN PLATELET VOLUME 7.4 FL (7.4-10.4); MONOCYTES % (AUTO) 12.5 % (2-12); NEUTROPHILS # (AUTO) 5.7 X10'3 (1.8-7.7); NEUTROPHILS % (AUTO) 72.4 % (42-75); PLATELET COUNT 204 X10'3 (140-440); RED BLOOD COUNT 2.49 X10'6 (4.70-6.10); RED CELL DISTRIBUTION WIDTH 16.7 % (11.5-14.5); WHITE BLOOD COUNT 7.8 X10'3 (4.5-11.0)
[2024-11-26 05:28] LABS: INR 1.2 INR; PROTHROMBIN TIME 12.7 SECONDS (9.0-12.0)
[2024-11-26 05:43] LABS: ALANINE AMINOTRANSFERASE 32 U/L (12-78); ALBUMIN/GLOBULIN RATIO 0.9 (1.1-1.5); ALKALINE PHOSPHATASE 99 IU/L (46-116); ANION GAP 11 (8-16); ASPARTATE AMINO TRANSFERASE 48 U/L (10-37); BILIRUBIN,TOTAL 0.4 MG/DL (0.1-1.0); BLOOD UREA NITROGEN 53 MG/DL (7-18); BUN/CREATININE RATIO 7.3 (10.0-20.0); CALCIUM 9.1 MG/DL (8.5-10.1); CHLORIDE 102 MMOL/L (99-107); CREATININE 7.22 MG/DL (0.60-1.10); GLUCOSE 94 MG/DL (70-104); MAGNESIUM 2.1 MG/DL (1.5-2.4); POTASSIUM 5.1 MMOL/L (3.5-5.1); SODIUM 137 MMOL/L (135-145); TOTAL CARBON DIOXIDE 23.9 MMOL/L (24-32); TOTAL PROTEIN 6.3 G/DL (6.4-8.2); eCRCL 10 ML/MIN; eGFR 8 ML/MIN
[2024-11-26 06:00] VITALS: BP 161/51; PULSE 70; RESP 16; TEMP 97.4; O2SAT 98
[2024-11-26 08:00] VITALS: RESP 16; O2SAT 98
[2024-11-26] MEDS ORDERED: heparin 1,000 units/ml 10ml inj IV ONE (08:00)
[2024-11-26] MEDS ORDERED: heparin 1,000unit/ml 10ml vial 10 ML IV ONE (08:00)
[2024-11-26] MEDS: hydrALAZINE 25 MG tablet PO SCH (09:10)
[2024-11-26 09:11] VITALS: BP_SYST 161; PULSE 73
[2024-11-26] MEDS: clopidogrel 75mg tablet PO SCH (09:11)
[2024-11-26] MEDS: lisinopril 20mg tablet PO SCH (09:11)
[2024-11-26] MEDS ORDERED: HYDR25TA90 PO (10:47)
[2024-11-26] MEDS ORDERED: CLOP75TA34 PO (10:47)
[2024-11-26] MEDS ORDERED: METO-395 PO (10:47)
[2024-11-26] MEDS ORDERED: ATOR20TA66 PO (10:47)
[2024-11-26] MEDS ORDERED: ASPI-1071 PO (10:47)
[2024-11-26] MEDS ORDERED: warfarin 5mg tablet PO ONE (21:00)
[2024-11-30 05:13] LABS: HBSAG SCREEN Negative (Negative); HEP B SURF AB Non Reactive (.)
== END 2024-11-26 15:14 | disposition home or self-care (01) | DRG 321 ==
LOC: ER 08:54 → ED HOLD 10:25 → PCU 3S 14:45
PROVIDERS: ADMIT Nurse Practitioner Family; ATTEND Nurse Practitioner Family
PROC: 027034Z Dilation of Coronary Artery, One Artery with Drug-eluting Intraluminal Device, Percutaneous Approach (ICD-10-PCS; principal; 2024-11-24)
PROC: 4A023N7 Measurement of Cardiac Sampling and Pressure, Left Heart, Percutaneous Approach (ICD-10-PCS; 2024-11-24)
PROC: B2111ZZ Fluoroscopy of Multiple Coronary Arteries using Low Osmolar Contrast (ICD-10-PCS; 2024-11-24)
DX: I21.4 Non-ST elevation (NSTEMI) myocardial infarction (principal); N18.6 End stage renal disease; I12.0 Hypertensive chronic kidney disease with stage 5 chronic kidney disease or end stage renal disease; I25.10 Atherosclerotic heart disease of native coronary artery without angina pectoris; F17.210 Nicotine dependence, cigarettes, uncomplicated; Z99.2 Dependence on renal dialysis; E11.22 Type 2 diabetes mellitus with diabetic chronic kidney disease; I95.9 Hypotension, unspecified; E11.40 Type 2 diabetes mellitus with diabetic neuropathy, unspecified; E11.51 Type 2 diabetes mellitus with diabetic peripheral angiopathy without gangrene; E78.5 Hyperlipidemia, unspecified; F41.9 Anxiety disorder, unspecified; I48.0 Paroxysmal atrial fibrillation; Z79.899 Other long term (current) drug therapy; N18.9 Chronic kidney disease, unspecified
CPT/HCPCS: 93306; 93458; 99291; C9600; 36415; 71045; 76937; 80053; 80061; 82272; 82803; 83605; 83735; 83880; 84484; 85014; 85025; 85347; 85610; 85730; 86706; 87040; 87081; 87340; 90732; 93005; 97116; 97161; 97530; 99152; 99153; A6209; A6212; A6213; A6258; A6402; A6449; A6455; C1725; C1751; C1769; C1874; C1894; G0378; J1644; J2003; J2250; J2405; J3010; J3490; J7030; Q9967

== ENCOUNTER 2025-04-02 09:10 | Inpatient (IN) | payer MEDICARE, MEDICAID ==
[~2025-04-02] VITALS: Ht 167.6 cm; Wt 68.2 kg
[~2025-04-02 09:10] MED LIST changes: -AMIO100T4 PO; +AMLO-708 PO; -APIX5TAB3 PO; +ASPI-1071 PO; +ATOR20TA66 PO; -CINA30TA7 PO; +CLOP75TA34 PO; +FOSI40TA71 PO; -FURO40TA4 PO; -GLIM1TAB57 PO; +HYDR25TA90 PO; -LISI10TA27 PO; +METO-395 PO; -METO5TAB98 PO; -OMEP40CA PO; -ROSU40TA PO; -SITA25TA3 PO; -VIT1TABL50 PO; +WARF3TAB56 PO
--- NOTE | 2025-04-02 09:21 | ELECTROCARDIOGRAPH REPORT ---
[facility] Test Date: 2025-04-02 Test Time: 09:18:56 Pat Name: EMANUEL LEE Department: EMERGENCY ROOM Room: Gender: M Rim Roller Setter: ANDREW : 1960 Requested By: DORIAN BARNETT Order Number: [id number] Reading MD: Dr. Dorian Barnett Measurements Intervals [place] Rate: 78 P: 52 ME: 159 QRS: 1 QRSD: 95 T: 56 QT: 415 QTc: 473 Interpretive Statements Sinus rhythm Left atrial enlargement Anteroseptal infarct, age indeterminate Baseline wander in lead(s) II,III,aVR,aVF,V3,V5,V6 Electronically Signed On 04-02-2025 11:00:[address] Dorian Barnett Please click the below link to view image of tracing.
[2025-04-02 09:47] LABS: BASOPHILS % (AUTO) 0.6 % (0-1); EOSINOPHILS % (AUTO) 0.3 % (0-6); HEMATOCRIT 37.3 % (42.0-52.0); HEMOGLOBIN 12.1 g/dl (14.0-17.9); LYMPHOCYTES # (AUTO) 1.2 X10'3 (1.1-4.8); MEAN CORPUSCULAR HEMOGLOBIN 29.8 PG (27.0-31.0); MEAN CORPUSCULAR HGB CONC 32.6 g/dL (33.0-36.5); MEAN CORPUSCULAR VOLUME 91.3 FL (78-98); MEAN PLATELET VOLUME 7.3 FL (7.4-10.4); MONOCYTES # (AUTO) 0.9 X10'3 (0-0.9); MONOCYTES % (AUTO) 13.9 % (2-12); NEUTROPHILS % (AUTO) 65.2 % (42-75); PLATELET COUNT 217 X10'3 (140-440); RED BLOOD COUNT 4.08 X10'6 (4.70-6.10); RED CELL DISTRIBUTION WIDTH 20.3 % (11.5-14.5); WHITE BLOOD COUNT 6.1 X10'3 (4.5-11.0)
--- NOTE | 2025-04-02 10:03 | RADIOLOGY REPORT ---
EXAM: XR Chest, 1 View CLINICAL INDICATION: CP TECHNIQUE: Frontal view of the chest. COMPARISON: DI CHEST,SINGLE VIEW on DOS: 11/24/24, CHEST,SINGLE VIEW on DOS: 04/12/22, CHEST,SINGLE V IEW on DOS: 03/22/20 FINDINGS: LUNGS AND PLEURAL SPACES: Unremarkable. No consolidation. No pneumothorax. HEART: Cardiomegaly without overt failure. MEDIASTINUM: Unremarkable. Normal mediastinal contour. BONES/JOINTS: Unremarkable. No acute fracture. OTHER FINDINGS: . IMPRESSION: Cardiomegaly without overt failure.
[2025-04-02 10:04] LABS: MAGNESIUM 1.8 MG/DL (1.5-2.4); PRO BRAIN NATRIURETIC PEPTIDE 16258 PG/ML (0-125)
[2025-04-02 10:16] LABS: ANISOCYTOSIS 3+; HYPOCHROMASIA 1+; PLATELET ESTIMATE NORMAL
[2025-04-02 10:34] LABS: ALANINE AMINOTRANSFERASE 16 U/L (12-78); ALBUMIN 3.1 G/DL (3.4-5.0); ALKALINE PHOSPHATASE 99 IU/L (46-116); ANION GAP 15 (8-16); ASPARTATE AMINO TRANSFERASE 18 U/L (10-37); BILIRUBIN,TOTAL 0.5 MG/DL (0.1-1.0); BLOOD UREA NITROGEN 7 MG/DL (7-18); BUN/CREATININE RATIO 2.4 (10.0-20.0); CALCIUM 8.9 MG/DL (8.5-10.1); CHLORIDE 103 MMOL/L (99-107); CREATININE 2.92 MG/DL (0.60-1.10); GLUCOSE 104 MG/DL (70-104); POTASSIUM 3.4 MMOL/L (3.5-5.1); SODIUM 139 MMOL/L (135-145); TOTAL CARBON DIOXIDE 21.3 MMOL/L (24-32); TOTAL PROTEIN 6.3 G/DL (6.4-8.2); eCRCL 24 ML/MIN; eGFR 22 ML/MIN
--- NOTE | 2025-04-02 10:42 | Physician Documentation ---
History of Present Illness ~ Chief Complaint: Hypotension Stated Complaint: TACHICARDIA Time Seen by MD: 09:16 OK to notify your PCP?: Yes Primary Medical Doctor: [facility] Source: patient, RN/MD, EMS, RN notes reviewed, EMS notes reviewed, old records, other Mode of Arrival: EMS Exam Limitations: no limitations HPI This patient comes from [facility]. Patient has hemodialysis on Friday. Patient apparently was 2/3 through his hemodialysis and developed rapid AFib with RVR. He does not have a history of AFib. The patient was found to be also hypotensive with a blood pressure of 86/53. Hemodialysis was discontinued and fluids was given back to the patient. His heart rate was 136 AFib with RVR at the time. EMS was called where he was now having heart rates up to 160s 170s looking ill pale and was also hypotensive in the 80s. 750 cc of fluids was given. Patient now arrives where he seems to be better opening his eyes making eye contact states he feels tired and ill but otherwise doing much better answering questions normotensive with a normal heart rate in the 70s. Patient is now here for evaluation. He denies any sick contacts fevers or chills. Medication Reconciliation Allergies: Coded Allergies: No Known Allergies (Unverified , 07/23/20) Scheduled Amlodipine Besylate (Amlodipine Besylate), 1 TAB PO HS, (Reported) Aspirin (Ecotrin*), 1 TAB PO DAILY Atorvastatin Calcium (Atorvastatin Calcium), 40 MG PO HS Calcium Acetate (PHOSLO capsule), 3 CAP PO AC, (Reported) Clopidogrel Bisulfate (Clopidogrel), 75 MG PO DAILY Fosinopril Sodium (Fosinopril Sodium), 1 TAB PO DAILY, (Reported) Hydralazine Hcl* (Apresoline*), 50 MG PO DAILY Levothyroxine Sodium (Synthroid), 1 TAB PO DAILY, (Reported) Metoprolol Succinate (Metoprolol Succinate), 25 MG PO DAILY Warfarin Sodium (Warfarin Sodium), 1 TAB PO DAILY, (Reported) Past Medical History Past Medical History: Arrhythmia Past Surgical History: cholecystectomy Patient History: (CAD) Coronary arteriosclerosis MOTHER, , Age: 78, Cause: Heart failure (CVA) Cerebrovascular accident MOTHER, , Age: 78, Cause: Heart failure (DM Type 2) Diabetes mellitus type 2 MOTHER, , Age: 78, Cause: Heart failure FATHER, , Age: 76, Cause: Diabetes Afib Alcohol Use: None Drug Use: marijuana, methamphetamine Lives with: Family Lives In: Home Occupation: disabled Review of Systems All Other Systems at this time: Reviewed and Negative Physical Exam Vital Signs: RN Vital Signs have been reviewed: Yes, Temperature: 98.4, Source: Oral, Heart Rate: 78, Respiratory Rate: 13, BP: 172/80, Pulse Oximetry: 97, Weight: 68.180 Oxygen Flow Rate: 0 Physical Exam General: The patient is well developed, well nourished, nontoxic appearing and is in no acute distress. Skin: Bode, warm and dry with no rashes. HEENT: Head was normocephalic and atraumatic. Eyes - pupils equal, round, reactive to light and accommodation. Extraocular movements were intact. Conjunctivae were nonicteric. The mouth and oropharynx were clear with moist mucous membranes. There were no pharyngeal exudates or erythema. Neck: Supple and nontender. There was no jugular venous distention, lymphadenopathy, thyromegaly or masses. Chest: Clear to auscultation bilaterally without wheezes, rales or rhonchi. No accessory muscle use. No dullness to percussion. Heart: Rate regular and rhythmic. S1, S2. No murmurs. Palpation of the chest wall was normal. No rubs or thrills. Abdomen: Soft, nontender and nondistended. Positive bowel sounds. No guarding or rebound. No hepatosplenomegaly or palpable masses. Extremities: No cyanosis, clubbing or edema. The patient moves all extremities. Pulses were equal and symmetric. Skin dry Neurologic: Motor sensory grossly intact Psychologic: The patient was oriented to person, place and time. The patient demonstrated appropriate judgement and insight. Progress Progress Note 11:00 a.m. discussed the case with the hospitalist Dr. Pino EATON Results/Orders Reviewed/noted all lab results: Yes Results/Orders Orders - DORIAN BARNETT MD Chest,Single View (04/02/25 09:14) Monitor (04/02/25 09:14) Saline Lock (04/02/25 09:14) Oxygen (04/02/25 09:14) Electrocardiogram (04/02/25 09:14) Hs Troponin I W Calculations (04/02/25 12:14) Page Hospitalist (04/02/25 10:42) Fill Out Med Reconciliation (04/02/25 10:42) Completed Orders - DORIAN BARNETT MD Chest,Single View (04/02/25 09:14) Cbc/Diff (04/02/25 09:14) PBNP (04/02/25 09:14) Electrocardiogram (04/02/25 09:14) Hs Troponin I W Calculations (04/02/25 09:14) Hs Troponin I W Calculations (04/02/25 11:14) MG (04/02/25 09:16) CMP (04/02/25 09:25) Pt Inr (04/02/25 10:37) PTT (04/02/25 10:37) Vital Signs 04/02/25 04/02/25 04/02/25 04/02/25 09:13 09:27 09:28 09:34 Temp 98.4 98.4 Pulse 74 78 Resp 16 20 20 B/P (MAP) 199/88 191/88 (122) Pulse Ox 100 99 99 O2 Flow Rate 0 0 0 FiO2 N/A 04/02/25 04/02/25 10:00 11:00 Pulse 78 80 Resp 13 15 B/P (MAP) 172/80 (110) 194/94 (127) Pulse Ox 97 97 O2 Flow Rate 0 0 Laboratory Tests Test 04/02/25 09:25 White Blood Count 6.1 Red Blood Count 4.08 L Hemoglobin 12.1 L Hematocrit 37.3 L Mean Corpuscular Volume 91.3 Mean Corpuscular Hemoglobin 29.8 Mean Corpuscular Hemoglobin Concent 32.6 L Red Cell Distribution Width 20.3 H Platelet Count 217 Mean Platelet Volume 7.3 L Neutrophils (%) (Auto) 65.2 Lymphocytes (%) (Auto) 20.0 L Monocytes (%) (Auto) 13.9 H Eosinophils (%) (Auto) 0.3 Basophils (%) (Auto) 0.6 Neutrophils # (Auto) 4.0 Lymphocytes # (Auto) 1.2 Monocytes # (Auto) 0.9 Eosinophils # (Auto) 0.0 Basophils # (Auto) 0.0 CBC Comment Platelet Estimate Normal Red Blood Cell Morphology Perf Hypochromasia 1+ Basophilic Stippling Anisocytosis 3+ Prothrombin Time 17.2 H INR International Normalized Ratio 1.8 Activated Partial Thromboplast Time 36 H Coagulation Comments Sodium Level 139 Potassium Level 3.4 L Chloride Level 103 Carbon Dioxide Level 21.3 L Anion Gap 15 Blood Urea Nitrogen 7 Creatinine 2.92 H Estimated GFR/1.73 m2 22 BUN/Creatinine Ratio 2.4 L Glucose Level 104 Calcium Level 8.9 Magnesium Level 1.8 Total Bilirubin 0.5 Aspartate Amino Transf (AST/SGOT) 18 Alanine Aminotransferase (ALT/SGPT) 16 Alkaline Phosphatase 99 Troponin I High Sensitivity 45 Pro-B-Type Natriuretic Peptide 93401 H Total Protein 6.3 L Albumin 3.1 L Globulin 3.2 Albumin/Globulin Ratio 1.0 L Chemistry Comments Re-Evaluation Re-Evaluation : Re-Evaluation: Improved Progress Patient was seen and examined. Patient is given reassurance. The patient was sent over from hemodialysis. Patient's blood pressure is normotensive the longer in SVT or new onset AFib. CBC shows a WBC of 6.1 hemoglobin hematocrit constantly low at 12 and 37 platelets 217. Chemistry shows slightly low potassium of 3.4. Creatinine is 2.92. Otherwise magnesium 1.8 LFTs electrolytes within normal limits borderline low potassium. Troponin is negative proBNP is elevated but patient has has renal failure. Coagulation has been obtained. Patient received aspirin. X-ray did not show any signs of failure extremities did not have any edema his skin is dry. Patient was then given an aspirin admitted to the hospitalist service for further workup and care for new onset AFib with RVR versus SVT. Patient's blood pressure has a bit high improving on its own. We will receive morning medications. Patient does take beta blockers. Case was discussed with Nephrology who will manage and follow the patient from a hemodialysis standpoint. Patient will be admitted to the hospitalist service for possible cardiac workup. Continuous vice president of contracts interpretation shows normal sinus rhythm heart rate 70s, no ectopy, normal, my interpretation. Pulse oximetry monitor interpretation shows normal oxygenation 99% room air, normal, my interpretation. EKG/XRAY/CT/US/VASC/MRI EKG : Intepreting Monitor?: Yes Additional Comment Ordering Physician: DORIAN BARNETT MD Exam Name: ELECTROCARDIOGRAM Technologist: [facility] Test Date: 2025-04-02 Test Time: 09:18:56 Pat Name: EMANUEL LEE Department: EMERGENCY ROOM Room: Gender: M Ply Bander: ANDREW : 1960 Requested By: DORIAN BARNETT Order Number: [id number] Chris MD: Dr. Dorian Barnett Measurements Intervals [place] Rate: 78 P: 52 AK: 159 QRS: 1 QRSD: 95 T: 56 QT: 415 QTc: 473 Interpretive Statements Sinus rhythm Left atrial enlargement Anteroseptal infarct, age indeterminate Baseline wander in lead(s) II,III,aVR,aVF,V3,V5,V6 Electronically Signed On 04-02-2025 11:00:[address] Dorian Barnett Medical Decision Making Additional info obtained from: old records Differential Dx:Considerations: Include: dehydration, hypercalcemia, hypoglycemia, hypernatremia, hyponatremia, drug overdose, encephalopathy, medication toxicity, infection - sepsis, infection - UTI, heart failure, renal failure, hyperthermia, hypothermia, other Departure Disposition: ADMITTED INPATIENT Admitted to Inpatient Unit: to hospitalist, to real estate loan processor Admission Level of Care: PCU with Tele Impression: Primary Impression: SVT (supraventricular tachycardia) Additional Impressions: Hypotension Qualified Codes: I95.9 - Hypotension, unspecified Atrial fibrillation with RVR Chronic renal failure Qualified Codes: N18.5 - Chronic kidney disease, stage 5 Condition: Guarded Referrals: NO PRIMARY CARE PROVIDER (PCP) Education Educated: Patient Educated regarding: diagnosis, need for follow up, other Critical Care Note Total Time (mins): 30 Critical Care Note The very real possibility of a deterioration of this patient's condition required the highest level of my preparedness for sudden, emergent intervention. I provided critical care services, which included medication orders, frequent reevaluations of the patient's condition and response to treatment, ordering and reviewing test results, and discussing the case with various consultants. Excludes time spent performing separately billable procedures. The critical care time associated with the care of the patient was. For SVT AFib and electrolyte abnormalities with renal failure management in the potential for the patient is decompensation requiring cardioversion pacer pads placed. Patient received several doses of beta blockers Signature Scribe Signature: No scribed Attestation: The note accurately reflects work and decisions made by me.Dorian Barnett MD 04/02/25 10:42 DORIAN BARNETT MD April 02, 2025 10:42
[2025-04-02 10:56] LABS: APTT 36 SECONDS (22-32); INR 1.8 INR; PROTHROMBIN TIME 17.2 SECONDS (9.0-12.0)
[2025-04-02] MEDS ORDERED: acetaminophen 325mg tablet PO PRN (11:10)
[2025-04-02] MEDS ORDERED: magnesium hydroxide 30ml (MOM) UD suspension PO PRN (11:10)
[2025-04-02] MEDS: metoprolol tartrate 1mg/ml inj IV SCH (12:18)
[2025-04-02] MEDS: aspirin 81mg tab.chew PO ONE ×2 (12:18→14:02)
[2025-04-02 13:52] VITALS: BP 198/81; PULSE 73; RESP 14; TEMP 97.5; O2SAT 97
--- NOTE | 2025-04-02 14:00 | CONSULTATION REPORT ---
Consult Providers to CC Altered mental status History of Present Illness Reason for Admit\Complaint: Altered mental status and hypotension History of Present Illness He is ESRD-HD dialyzes on Friday, with the majority weight through his dialysis today and began to have hypotension, worsening confusion and tachycardia, is unclear whether or not he was just tachycardic or was in atrial fibrillation at the time, he was given back 500 mL bolus of saline and his blood pressure improved significantly from systolic blood pressure in the 80s to 110s, wireless sales associate on route gave him another bolus of 750 mL of normal saline, on arrival to the ED he was confused, hypotensive, tachycardic, appears to be in atrial fibrillation, he does not have a prior history of atrial fibrillation, he does have significant get coronary artery disease most certainly, he will be admitted for further evaluation monitoring, we have been asked to manage his ESRD-HD while he is in the hospital. Allergies: Coded Allergies: No Known Allergies (Unverified , 07/23/20) Home Medications Home Medications Active Ecotrin* (Aspirin) 81 Mg Tablet.dr 1 Tab PO DAILY 30 Days Apresoline* (Hydralazine HCl) 25 Mg Tablet 50 Mg PO DAILY 30 Days Take 1 tablet (50mg) by mouth once daily Metoprolol Succinate 25 Mg Tab.sr.24h 25 Mg PO DAILY 30 Days Atorvastatin Calcium 20 Mg Tablet 40 Mg PO HS 30 Days Clopidogrel (Clopidogrel Bisulfate) 75 Mg Tablet 75 Mg PO DAILY 30 Days Do not stop medication unless instructed by prescriber. Reported Fosinopril Sodium 40 Mg Tablet 1 Tab PO DAILY Amlodipine Besylate 10 Mg Tablet 1 Tab PO HS Warfarin Sodium 3 Mg Tablet 1 Tab PO DAILY Synthroid (Levothyroxine Sodium) 125 Mcg Tablet 1 Tab PO DAILY PHOSLO capsule (Calcium Acetate) 1 Cap Capsule 3 Cap PO AC 30 Days 2 CAPSDULES TID WITH MEALS ABD 1 PER SNACK PRN Past Medical History Past Medical History Reviewed and unchanged Past Surgical History Surgical History Comment Reviewed and unchanged Family History Family History: (CAD) Coronary arteriosclerosis MOTHER, , Age: 78, Cause: Heart failure (CVA) Cerebrovascular accident MOTHER, , Age: 78, Cause: Heart failure (DM Type 2) Diabetes mellitus type 2 MOTHER, , Age: 78, Cause: Heart failure FATHER, , Age: 76, Cause: Diabetes Afib Past Social History Social History Comment Reviewed and unchanged Exam Vitals: Vital Signs Date Time Temp Pulse Resp B/P (MAP) Pulse Ox O2 Delivery O2 Flow Rate FiO2 04/02/25 13:16 81 04/02/25 11:00 15 194/94 (127) 97 0 04/02/25 09:28 98.4 04/02/25 09:27 N/A General: Well appearing, well nourished, in no distress. Oriented x 2 at baseline level of cognition Neck: Supple, without JVD Heart: Regular rate and rhythm, no murmur Lungs: Clear to auscultation and percussion Abdomen: Bowel sounds normal, no tenderness, organomegaly, masses, or hernia Extremities: No cyanosis, no edema, peripheral pulses intact Neurologic: Sensation to touch, normal. DTRs normal moves all extremities spontaneously. Diagnostic Data Last Recorded Lab Results: 04/02/2592404/02/25924 Diagnostic Data: Laboratory Tests Test 04/02/25 09:25 Prothrombin Time 17.2 SECONDS (9.0-12.0) H INR International Normalized Ratio 1.8 INR Activated Partial Thromboplast Time 36 SECONDS (22-32) H Coagulation Comments Problems: (1) Altered mental state Assessment & Plan: Improved with resolution of his hypotension, continue to monitor, appears at his baseline mentation at this time (2) Atrial fibrillation with rapid ventricular response Assessment & Plan: New onset atrial fibrillation, he is most likely going to be anticoagulated, would recommend titrating his metoprolol to achieve the desired heart rate, would recommend stress test as an outpatient (3) ESRD on dialysis Assessment & Plan: ESRD-HD, Friday schedule, last dialysis was today, no acute indication for additional dialysis today, we will assess him daily for dialysis needs while in the hospital with dialysis prescription below, We will assess and manage his ESRD-HD comorbidities as indicated All relevant labs and reports were reviewed to develop this dialysis prescription today iHD 3 Hours Access AVF LA Dialyzer Elisio 15H BFR 350 DFR 2 X BFR Na 140 K 3 HCO3 34 Ca 2.5 TERRY 10K Units Albumion N Mannitol N UF 1-2 liters as tolerated Anemia-CKD, hemoglobin goal between 10 and 11.5, if not at goal would recommend 10,000 units of TERRY with each dialysis session Hyperphosphatemia, goal less than 5.5 continue home calcium acetate 667 mg with meals and snacks, renal diet please Hyperkalemia develops between dialysis sessions Lokelma 10 g daily (4) Hypertension, essential Status: Acute Assessment & Plan: Continue his home regimen, goal blood pressure in the acute care setting is around 140/90, avoid hypotension please TORY LE III DO April 02, 2025 14:00
[2025-04-02 15:17] VITALS: BP 178/88; PULSE 77; RESP 14; TEMP 97.8; O2SAT 96
[2025-04-02 18:00] VITALS: BP 166/91; PULSE 68; RESP 15; TEMP 97.2; O2SAT 98
--- NOTE | 2025-04-02 19:05 | HISTORY AND PHYSICAL ---
History & Physical Providers to CC ~ History of Present Illness Reason for Admit\Complaint: Hypotension/SVT History of Present Illness This is a 64-year-old male who was at [facility] today for which he visits Friday and Friday the patient was about to finish his dialysis treatment when he went into a rapid atrial fibrillation with a heart rate in the 160s and the patient was hypotensive blood pressure 86/53 the patient was given IV fluid resuscitation which the patient along was not in rapid atrial fibrillation in his blood pressure is elevated. The patient felt very fatigued that dialysis however now he feels better and. Close to his baseline Securities Analyst Dr. Johnson saw the patient this morning The patient also looks uncomfortable and is at times grimacing I asked him what was bothering him he mentioned that he has a abdominal pain and then he went on to informed me that he has diabetic gastroparesis and that when questioned further that his abdominal pain is no different than at his baseline and that he does frequently have pain due to diabetic gastroparesis Allergies: Coded Allergies: No Known Allergies (Unverified , 07/23/20) Home Medications Home Medications Active Ecotrin* (Aspirin) 81 Mg Tablet.dr 1 Tab PO DAILY 30 Days Apresoline* (Hydralazine HCl) 25 Mg Tablet 50 Mg PO DAILY 30 Days Take 1 tablet (50mg) by mouth once daily Metoprolol Succinate 25 Mg Tab.sr.24h 25 Mg PO DAILY 30 Days Atorvastatin Calcium 20 Mg Tablet 40 Mg PO HS 30 Days Clopidogrel (Clopidogrel Bisulfate) 75 Mg Tablet 75 Mg PO DAILY 30 Days Do not stop medication unless instructed by prescriber. Reported Fosinopril Sodium 40 Mg Tablet 1 Tab PO DAILY Amlodipine Besylate 10 Mg Tablet 1 Tab PO HS Warfarin Sodium 3 Mg Tablet 1 Tab PO DAILY Synthroid (Levothyroxine Sodium) 125 Mcg Tablet 1 Tab PO DAILY PHOSLO capsule (Calcium Acetate) 1 Cap Capsule 3 Cap PO AC 30 Days 2 CAPSDULES TID WITH MEALS ABD 1 PER SNACK PRN Past Medical History Past Medical History [id number] diabetes mellitus Peripheral artery disease prior stents, coronary artery disease, Atrial fibrillation End-stage renal disease on hemodialysis Diabetes mellitus Diabetic gastroparesis Carotid artery disease Past Surgical History Surgical History Comment Right-sided carotid artery Stent lower extremity stent for peripheral artery disease Left inguinal hernia repair Left carotid artery stent Cholecystectomy Family History Family History: (CAD) Coronary arteriosclerosis MOTHER, , Age: 78, Cause: Heart failure (CVA) Cerebrovascular accident MOTHER, , Age: 78, Cause: Heart failure (DM Type 2) Diabetes mellitus type 2 MOTHER, , Age: 78, Cause: Heart failure FATHER, , Age: 76, Cause: Diabetes Afib FH: breast cancer Sister FH: hypertension MOTHER, , Age: 78, Cause: Heart failure FATHER, , Age: 76, Cause: Diabetes Past Social History Social History Comment Quit smoking cigarettes 20 years ago, does not drink alcohol or use illicit drugs he does smoke marijuana frequently and states that he smokes three joints a day. Full code status ROS ROS Except for positives in the HPI the rest of the 14 point review systems is negative Exam Vitals: Vital Signs Date Time Temp Pulse Resp B/P (MAP) Pulse Ox O2 Delivery O2 Flow Rate FiO2 04/02/25 15:17 97.8 77 14 178/88 (118) 96 04/02/25 13:52 Room Air 04/02/25 11:00 0 04/02/25 09:27 N/A General: Gen. No acute distress alert and oriented 4 Lungs clear to ascultation bilaterally, no wheezes rales or rhonchi appreciated Heart normal sinus rhythm no murmurs rubs or clicks noted Abdomen soft nontender bowel sounds are normoactive Lower extremities no clubbing cyanosis, nor edema appreciated bilaterally Diagnostic Data Last Recorded Lab Results: 04/02/2592404/02/2525 Diagnostic Data: Laboratory Tests Test 04/02/25 09:25 Prothrombin Time 17.2 SECONDS (9.0-12.0) H INR International Normalized Ratio 1.8 INR Activated Partial Thromboplast Time 36 SECONDS (22-32) H Coagulation Comments Advance Care Planning Advanced Care plannin - 30 Minutes Problems: (1) Atrial fibrillation with rapid ventricular response Additional Plan # AFib RVR occurring post dialysis Resolved with IV fluid resuscitation Continue metoprolol Continue Coumadin dosing by pharmacy IV fluid resuscitation # hypotension occurring post dialysis resolved with IV fluid resuscitation the patient is currently hypertensive # diabetes mellitus type 2 And a hyper and hypoglycemic protocol # end-stage renal disease on dialysis- Dr. Johnson glass worker evaluated the patient today # hypertension Continue amlodipine and lisinopril as well as hydralazine # hypothyroidism continue Synthroid # DVT prophylaxis SCDs on Coumadin I spent a total of 17 minutes on reviewing various resuscitative measures/ ACP with the patient at the time of admission. The patient has decided on a full code status Date of Service: April 02, 2025 Billing Provider: LILLY PATEL DO Common Visit Codes: 81692-WCHJCTH INP/OBS CARE (HIGH) Secondary Visit Codes: 83259-BQBIXFGG CARE PLAN 30 MINUTES LILLY PATEL DO April 02, 2025 19:05
[2025-04-02 20:00] VITALS: RESP 15; O2SAT 98
[2025-04-02] MEDS: docusate sod 100mg capsule PO SCH (20:00)
[2025-04-02] MEDS: atorvastatin 20mg tablet PO SCH (20:18)
[2025-04-02] MEDS: amLODIPine 5mg tablet PO SCH (20:19)
[2025-04-02] MEDS: ondansetron/PF 4mg/2ml inj IV PRN (20:22)
[2025-04-02] MEDS: warfarin 4mg tablet PO ONE (21:00)
[2025-04-02 22:00] VITALS: BP 165/96; PULSE 61; RESP 23; TEMP 98.9; O2SAT 94
[2025-04-03] VITALS (7 sets, daily range): BP systolic 130–203; BP diastolic 66–85; PULSE 64–92; RESP 12–23; TEMP 96.9–99.3; O2SAT 97–100
[2025-04-03 07:17] LABS: BASOPHILS # (AUTO) 0.1 X10'3 (0-0.2); BASOPHILS % (AUTO) 0.6 % (0-1); EOSINOPHILS % (AUTO) 0.1 % (0-6); HEMATOCRIT 39.9 % (42.0-52.0); HEMOGLOBIN 12.6 g/dl (14.0-17.9); LYMPHOCYTES # (AUTO) 0.5 X10'3 (1.1-4.8); LYMPHOCYTES % (AUTO) 4.6 % (21-51); MEAN CORPUSCULAR HEMOGLOBIN 29.6 PG (27.0-31.0); MEAN CORPUSCULAR HGB CONC 31.6 g/dL (33.0-36.5); MEAN CORPUSCULAR VOLUME 93.6 FL (78-98); MEAN PLATELET VOLUME 7.1 FL (7.4-10.4); MONOCYTES % (AUTO) 8.6 % (2-12); NEUTROPHILS # (AUTO) 9.6 X10'3 (1.8-7.7); NEUTROPHILS % (AUTO) 86.1 % (42-75); PLATELET COUNT 257 X10'3 (140-440); RED BLOOD COUNT 4.26 X10'6 (4.70-6.10); RED CELL DISTRIBUTION WIDTH 20.7 % (11.5-14.5); WHITE BLOOD COUNT 11.2 X10'3 (4.5-11.0)
[2025-04-03 07:26] LABS: INR 1.6 INR; PROTHROMBIN TIME 16.1 SECONDS (9.0-12.0)
[2025-04-03 07:41] LABS: ALANINE AMINOTRANSFERASE 19 U/L (12-78); ALBUMIN 3.4 G/DL (3.4-5.0); ALKALINE PHOSPHATASE 102 IU/L (46-116); ANION GAP 14 (8-16); ASPARTATE AMINO TRANSFERASE 30 U/L (10-37); BILIRUBIN,TOTAL 0.6 MG/DL (0.1-1.0); BLOOD UREA NITROGEN 16 MG/DL (7-18); BUN/CREATININE RATIO 2.7 (10.0-20.0); CALCIUM 9.1 MG/DL (8.5-10.1); CHLORIDE 103 MMOL/L (99-107); CREATININE 5.91 MG/DL (0.60-1.10); GLUCOSE 134 MG/DL (70-104); PHOSPHORUS 3.4 MG/DL (2.3-4.5); POTASSIUM 3.7 MMOL/L (3.5-5.1); SODIUM 140 MMOL/L (135-145); TOTAL CARBON DIOXIDE 23.2 MMOL/L (24-32); TOTAL PROTEIN 6.7 G/DL (6.4-8.2); eCRCL 12 ML/MIN; eGFR 10 ML/MIN
[2025-04-03] MEDS: aspirin 81mg, enteric-coated 1 TAB TABLET.DR PO SCH (08:08)
[2025-04-03] MEDS: hydrALAZINE 25 MG tablet PO SCH (08:08)
[2025-04-03] MEDS: levoTHYROXINE 125mcg tablet PO SCH (08:08)
[2025-04-03] MEDS: clopidogrel 75mg tablet PO SCH (08:09)
[2025-04-03] MEDS: lisinopril 20mg tablet PO SCH (08:09)
[2025-04-03] MEDS: metoprolol succinate 25mg (24-HOUR) SR. Tablet PO SCH (08:09)
[2025-04-03] MEDS: mag hydrox/Alum hydrox/simeth 30ml oral suspension PO PRN (11:29)
[2025-04-03] MEDS: hydrALAZINE 20mg/ml inj. IV PRN (11:29)
--- NOTE | 2025-04-03 11:50 | PROGRESS NOTE ---
Progress Note Dictate Providers to CC ~ Antibiotic Ordered?: N/A Subjective Subjective He is sitting up in the chair, resting comfortably, interested in when he can go home, no indication for dialysis today, will dialyze tomorrow if he still in the hospital Objective Vitals Vital Signs Date Time Temp Pulse Resp B/P (MAP) Pulse Ox O2 Delivery O2 Flow Rate FiO2 04/03/25 11:29 72 04/03/25 06:00 97.2 14 156/74 (101) 99 Room Air 04/02/25 11:00 0 04/02/25 09:27 N/A General: Well appearing, well nourished, in no distress. Oriented x 3, Neck: Supple, without JVD Heart: Regular rate and rhythm, no murmur Lungs: Clear to auscultation and percussion Abdomen: Bowel sounds normal, no tenderness, organomegaly, masses, or hernia Extremities: No cyanosis, no edema, peripheral pulses intact Neurologic: Sensation to touch, normal. DTRs normal moves all extremities spontaneously. Lab Results: 04/03/25 0702 04/03/25 0702 Coagulation Studies Laboratory Tests Test 04/02/25 09:25 04/03/25 07:02 Activated Partial Thromboplast Time 36 SECONDS (22-32) H Prothrombin Time 16.1 SECONDS (9.0-12.0) H INR International Normalized Ratio 1.6 INR Coagulation Comments Problem\Assessment\Plan Problems/Diagnosis: (1) Altered mental state Assessment & Plan: Improved with resolution of his hypotension, continue to monitor, appears at his baseline mentation at this time (2) Atrial fibrillation with rapid ventricular response Assessment & Plan: New onset atrial fibrillation, he is most likely going to be anticoagulated, would recommend titrating his metoprolol to achieve the desired heart rate, would recommend stress test as an outpatient (3) ESRD on dialysis Assessment & Plan: ESRD-HD, Friday schedule, last dialysis was today, no acute indication for additional dialysis today, we will assess him daily for dialysis needs while in the hospital with dialysis prescription below, We will assess and manage his ESRD-HD comorbidities as indicated All relevant labs and reports were reviewed to develop this dialysis prescription for tomorrow iHD 3 Hours Access AVF LA Dialyzer Elisio 15H BFR 350 DFR 2 X BFR Na 140 K 3 HCO3 34 Ca 2.5 TERRY 10K Units Albumin N Mannitol N UF 1-2 liters as tolerated Anemia-CKD, hemoglobin goal between 10 and 11.5, if not at goal would recommend 10,000 units of TERRY with each dialysis session Hyperphosphatemia, goal less than 5.5 continue home calcium acetate 667 mg with meals and snacks, renal diet please Hyperkalemia develops between dialysis sessions Lokelma 10 g daily (4) Hypertension, essential Assessment & Plan: Continue his home regimen, goal blood pressure in the acute care setting is around 140/90, avoid hypotension please TORY LE III DO Apr 03, 2025 11:50
--- NOTE | 2025-04-03 15:40 | PROGRESS NOTE ---
Daily Progress Note Providers to CC ~ Antibiotic Timeout Antibiotic Ordered?: No Subjective Patient has no new complaints, seen resting comfortably. Objective Vital Signs Date Time Temp Pulse Resp B/P (MAP) Pulse Ox O2 Delivery O2 Flow Rate FiO2 04/03/25 11:29 72 04/03/25 11:00 97.1 12 203/85 (124) 99 Room Air 04/02/25 11:00 0 04/02/25 09:27 N/A Result Diagram: 04/03/25 0702 04/03/25 0702 Alert oriented in NAD HEENT NC, AT , EOMI, Sclera anicteric, conjuctiva pinkish, moist oral mucosa Neck supple, no JVD , Chest clear to auscultation , no wheezes crackles or rhonchi Heart RRR, No murmur gallop or rub Abdomen soft nontender no organomegaly Extremities No C/C/E Neuro exam nonfocal Coagulation Studies Laboratory Tests Test 04/02/25 09:25 04/03/25 07:02 Activated Partial Thromboplast Time 36 SECONDS (22-32) H Prothrombin Time 16.1 SECONDS (9.0-12.0) H INR International Normalized Ratio 1.6 INR Coagulation Comments Other Results Medications reviewed Problem\Assessment\Plan Problems/Diagnosis: (1) Atrial fibrillation with rapid ventricular response 64-year-old male who was at [facility] as he is on HD Friday and Friday the patient was about to finish his dialysis treatment when he went into a rapid atrial fibrillation with a heart rate in the 160s and the patient was hypotensive blood pressure 86/53 the patient was given IV fluid resuscitation . # AFib RVR Resolved with IV fluid resuscitation Continue metoprolol Continue Coumadin dosing by pharmacy IV fluid resuscitation as needed. # Hypotension occurring post dialysis resolved with IV fluid resuscitation Resolved. # Diabetes mellitus type 2 And a hyper and hypoglycemic protocol # end-stage renal disease on dialysis- Dr. Johnson agency appointments supervisor evaluated the patient today # hypertension Continue amlodipine and lisinopril as well as hydralazine # hypothyroidism continue Synthroid # DVT prophylaxis SCDs on Coumadin # Disposition Likely home in am Date of Service: Apr 03, 2025 Billing Provider: PINEDA MONIQUE MD Common Visit Codes: [id number] INP/OBS CARE(HIGH) PINEDA MONIQUE MD Apr 03, 2025 15:40
[2025-04-03] MEDS ORDERED: metoprolol tartrate 1mg/ml inj IV SCH (20:20)
[2025-04-03] MEDS: warfarin 4mg tablet PO ONE (21:24)
[2025-04-04] VITALS (16 sets, daily range): BP systolic 108–203; BP diastolic 47–84; PULSE 64–85; RESP 10–18; TEMP 97.1–98.2; O2SAT 95–100
[2025-04-04] MEDS: labetalol 20mg/4ml (5mg/ml) syringe IV ONE (01:36)
[2025-04-04] MEDS: hydrALAZINE 20mg/ml inj. IV PRN (04:24)
[2025-04-04] MEDS: metoprolol tartrate 1mg/ml inj IV ONE (05:50)
[2025-04-04 07:56] LABS: BASOPHILS % (AUTO) 0.6 % (0-1); EOSINOPHILS % (AUTO) 0.2 % (0-6); HEMATOCRIT 39.6 % (42.0-52.0); HEMOGLOBIN 12.6 g/dl (14.0-17.9); LYMPHOCYTES # (AUTO) 0.6 X10'3 (1.1-4.8); LYMPHOCYTES % (AUTO) 9.9 % (21-51); MEAN CORPUSCULAR HEMOGLOBIN 29.7 PG (27.0-31.0); MEAN CORPUSCULAR HGB CONC 31.9 g/dL (33.0-36.5); MEAN PLATELET VOLUME 7.4 FL (7.4-10.4); MONOCYTES # (AUTO) 0.3 X10'3 (0-0.9); MONOCYTES % (AUTO) 4.3 % (2-12); NEUTROPHILS # (AUTO) 5.2 X10'3 (1.8-7.7); PLATELET COUNT 248 X10'3 (140-440); RED BLOOD COUNT 4.26 X10'6 (4.70-6.10); RED CELL DISTRIBUTION WIDTH 20.5 % (11.5-14.5); WHITE BLOOD COUNT 6.1 X10'3 (4.5-11.0)
[2025-04-04] MEDS ORDERED: normal saline 1000ml 100 ML IV PRN (08:00)
[2025-04-04 08:07] LABS: INR 2.5 INR; PROTHROMBIN TIME 23.7 SECONDS (9.0-12.0)
[2025-04-04 08:14] LABS: ALANINE AMINOTRANSFERASE 20 U/L (12-78); ALBUMIN 3.2 G/DL (3.4-5.0); ALKALINE PHOSPHATASE 100 IU/L (46-116); ANION GAP 15 (8-16); ASPARTATE AMINO TRANSFERASE 30 U/L (10-37); BILIRUBIN,TOTAL 0.6 MG/DL (0.1-1.0); BLOOD UREA NITROGEN 19 MG/DL (7-18); BUN/CREATININE RATIO 2.9 (10.0-20.0); CALCIUM 8.8 MG/DL (8.5-10.1); CHLORIDE 101 MMOL/L (99-107); CREATININE 6.61 MG/DL (0.60-1.10); GLUCOSE 156 MG/DL (70-104); POTASSIUM 3.3 MMOL/L (3.5-5.1); SODIUM 140 MMOL/L (135-145); TOTAL CARBON DIOXIDE 24.1 MMOL/L (24-32); TOTAL PROTEIN 6.5 G/DL (6.4-8.2); eCRCL 10 ML/MIN; eGFR 9 ML/MIN
--- NOTE | 2025-04-04 12:13 | PROGRESS NOTE- Residence ---
Progress Note - Resident Providers to CC Resident Creating Document: HAILEY REYES RES ~ Antibiotic Timeout Antibiotic Ordered?: No Subjective Patient seen and examined today. He completed a session of hemodialysis today. Comfortably sitting up and talking. Denies any complaints Objective Vital Signs Date Time Temp Pulse Resp B/P (MAP) Pulse Ox O2 Delivery O2 Flow Rate FiO2 04/04/25 11:16 70 04/04/25 09:30 98.1 16 109/52 (71) 100 Room Air 04/02/25 11:00 0 04/02/25 09:27 N/A Result Diagram: 04/04/2572604/04/25726 General: Alert and oriented x 4 HEENT: Normocephalic and atraumatic. Pupils equal round and reactive to light and accommodation. Extraocular movements intact. Oral and nasal mucosa moist Neck: Trachea is in midline. No masses or JVD Lungs: Bilateral normal breath sounds. No crackles, rhonchi or wheezes Heart: Irregular rhythm. Regular rate. No rubs or murmurs Abdomen: Soft, nontender and nondistended. Bowel sounds present STUDENT FINANCE SPECIALIST: No gross sensory or motor abnormalities Extremities: No cyanosis, clubbing or edema Skin: Warm and dry Coagulation Studies Laboratory Tests Test 04/02/25 09:25 04/04/25 07:37 Activated Partial Thromboplast Time 36 SECONDS (22-32) H Prothrombin Time 23.7 SECONDS (9.0-12.0) H INR International Normalized Ratio 2.5 INR Coagulation Comments Assessment Assessment The 64-year-old male with a past medical history of coronary artery disease, AFib, end-stage renal disease-on dialysis, diabetes mellitus, peripheral arterial disease was of the ER with a chief concern of AFib with RVR and hypotension. Admitted for further management Plan Plan End-stage renal disease-on hemodialysis - Friday, , Friday Has an AV fistula on left forearm Received hemodialysis today Before dialysis, BUN 19 and creatinine 6.61, mild hypokalemia, no metabolic acidosis, calcium within normal limits No drop in blood pressure during today's hemodialysis session Came in with concerns of hypotension AFib with RVR Well-controlled now On metoprolol succinate 25 mg p.o. daily and Coumadin TSH level ordered Hypertension Maintain blood pressure around 130 to 140/80 mmHg On amlodipine 10 mg p.o. HS, lisinopril 40 mg p.o. daily Hypothyroidism On levothyroxine 125 mcg p.o. daily His level ordered S/p carotid artery stenting and peripheral arterial stenting On aspirin 81 mg p.o. daily, Plavix 75 mg p.o. daily, Lipitor 40 mg p.o. daily DVT prophylaxis: Coumadin Hailey Reyes MD Internal Medicine Resident, PGY 2 Date of Service: Apr 04, 2025 Billing Provider: TORY LE III, MANOJNA RES Apr 04, 2025 12:13
--- NOTE | 2025-04-04 13:23 | DISCHARGE SUMMARY ---
Discharge Summary Providers to CC ~ Discharge Summary Admission Diagnosis: SVT/ hypotension Hospital Course DATE OF ADMISSION: 04/02/2025 DATE OF DISCHARGE:04/04/2025 Discharge Diagnosis\Comment: AFib with RVR Operations\Procedures: None Consultants: Bran Johnson MD Complications: None Condition on DC: Stable Continued Medications: Amlodipine Besylate (Amlodipine Besylate) 10 Mg Tablet 1 TAB PO HS Aspirin (Ecotrin*) 81 Mg Tablet.dr 1 TAB PO DAILY for 30 Days, #30 TAB.SR Atorvastatin Calcium (Atorvastatin Calcium) 20 Mg Tablet 40 MG PO HS for 30 Days, #30 TAB Calcium Acetate (PHOSLO capsule) 1 Cap Capsule 3 CAP PO AC for 30 Days, #180 CAP 2 CAPSDULES TID WITH MEALS ABD 1 PER SNACK PRN Clopidogrel Bisulfate (Clopidogrel) 75 Mg Tablet 75 MG PO DAILY for 30 Days, #30 TAB Do not stop medication unless instructed by prescriber. Fosinopril Sodium (Fosinopril Sodium) 40 Mg Tablet 1 TAB PO DAILY Hydralazine Hcl* (Apresoline*) 25 Mg Tablet 50 MG PO DAILY for 30 Days, #30 TAB Take 1 tablet (50mg) by mouth once daily Levothyroxine Sodium (Synthroid) 125 Mcg Tablet 1 TAB PO DAILY Metoprolol Succinate (Metoprolol Succinate) 25 Mg Tab.sr.24h 25 MG PO DAILY for 30 Days, #30 TAB.SR Warfarin Sodium (Warfarin Sodium) 3 Mg Tablet 1 TAB PO DAILY, TAB 0 Refills Discharge Summary: Reason for admission: Patient is 64 years old male who was at [facility], and patient was about to finish his dialysis treatment when he underwent due to rapid AFib with RVR. Patient was hypotensive and blood pres sure was 86/53. Please refer to admission H&P for further details Hospital course: Patient was admitted on the monitored floor under hospital course as follows. 1. AFib with RVR and hypotension: Both resolved with IV resuscitation. Patient continued on metoprolol. Patient was followed by Dr. Chantale johnson during this hospital stay 2. Diabetes mellitus type 2: Placed on hyper/hypoglycemia protocol and carb controlled diet. 3. End-stage renal disease: Followed by Dr. Parikh from Nephrology 4. Hypotension: Patient was continued on his amlodipine and lisinopril 5. Hypothyroidism: Continued on Synthroid 6. Secondary hypercoagulability: Patient is on Coumadin which was continued 7. Hyperlipidemia: Continued on atorvastatin Discharge exam: Examined the patient on the day of discharge. Alert oriented in NAD HEENT NC, AT , EOMI, Sclera anicteric, conjuctiva pinkish, moist oral mucosa Neck supple, no JVD , Chest clear to auscultation , no wheezes crackles or rhonchi Heart RRR, No murmur gallop or rub Abdomen soft nontender no organomegaly Extremities No C/C/E Neuro exam nonfocal Disposition Home *Problems/Diagnosis: (1) Altered mental state (2) Atrial fibrillation with rapid ventricular response (3) ESRD on dialysis (4) Hypertension, essential Status: Acute Total Time Spent on D/C: Up to 30 Minutes Date of Service: Apr 04, 2025 Billing Provider: PINEDA MONIQUE MD Common Visit Codes: [id number] DISCH DAY >30min PINEDA MONIQUE MD Apr 04, 2025 13:23
[2025-04-04 13:24] LABS: THYROID STIMULATING HORMONE 3.01 ulU/ml (0.34-4.50)
[2025-04-04] MEDS ORDERED: warfarin 1mg tablet PO ONE (21:00)
[2025-04-05 06:12] LABS: HBSAG SCREEN Negative (Negative)
== END 2025-04-04 16:22 | disposition home health service (06) | DRG 308 ==
LOC: ER 09:11 → ED HOLD 11:13 → PCU 3S 13:50
PROVIDERS: ADMIT Family Medicine; ATTEND Family Medicine
PROC: 5A1D70Z Performance of Urinary Filtration, Intermittent, Less than 6 Hours Per Day (ICD-10-PCS; principal; 2025-04-04)
DX: I48.91 Unspecified atrial fibrillation (principal); N18.6 End stage renal disease; I12.0 Hypertensive chronic kidney disease with stage 5 chronic kidney disease or end stage renal disease; D68.69 Other thrombophilia; I47.10 Supraventricular tachycardia, unspecified; I95.9 Hypotension, unspecified; E11.43 Type 2 diabetes mellitus with diabetic autonomic (poly)neuropathy; E11.51 Type 2 diabetes mellitus with diabetic peripheral angiopathy without gangrene; I25.10 Atherosclerotic heart disease of native coronary artery without angina pectoris; E03.9 Hypothyroidism, unspecified; E87.6 Hypokalemia; D63.1 Anemia in chronic kidney disease; E83.39 Other disorders of phosphorus metabolism; E87.5 Hyperkalemia; E78.5 Hyperlipidemia, unspecified; E11.22 Type 2 diabetes mellitus with diabetic chronic kidney disease; K31.84 Gastroparesis; Z99.2 Dependence on renal dialysis; Z79.01 Long term (current) use of anticoagulants; Z79.02 Long term (current) use of antithrombotics/antiplatelets; Z79.82 Long term (current) use of aspirin; Z79.84 Long term (current) use of oral hypoglycemic drugs; Z80.3 Family history of malignant neoplasm of breast; Z82.3 Family history of stroke; Z82.49 Family history of ischemic heart disease and other diseases of the circulatory system; Z83.3 Family history of diabetes mellitus; Z86.73 Personal history of transient ischemic attack (TIA), and cerebral infarction without residual deficits
CPT/HCPCS: 36415; 71045; 80053; 83735; 83880; 84100; 84443; 84484; 85008; 85025; 85610; 85730; 87081; 87340; 93005; 96374; 97116; 97162; 99285; A6258; A6449; E1594; G0257; G0378; J0360; J2405; J3490; J7030